=== PATIENT | female | born 1955 | race Caucasian/White ===

== ENCOUNTER 2021-05-12 22:44 | Inpatient (IN) | payer OTHER, SELFPAY ==
--- OUTSIDE RECORDS SUMMARY | 2021-05-12 22:47 | XMS REPORT | Continuity of Care Document ---
:1955 Author Organization [facility] t Address [address] [place] [address] Care Team Providers Name Role Phone Kristyn Lora Attending Clinician Unavailable Physician, Primary or Family Admitting Clinician Unavailabl e Payers Payer Name Policy Type Policy Number Effective Date Expiration Date S ource Problems This patient has no known problems. Allergies, Adverse Reactions, Alerts This patient has no known allergies or adverse reactions. Medications This patient has no known medications. Procedures This patient has no known procedures. Encounters Start End Encounter Admission Attending Care Care Encounter Source Date/Time Date/Time Type Type Clinicians Facility Department ID 2020-12-21 2020-12-21 Outpatient SRINATH Sarmiento [facility] RADI [id number] [facility] 08:23:00 08:23:00 Godwin alejandro [id number] [facility] Results This patient has no known results.
[2021-05-13] MEDS ORDERED: METHYLPREDNISOLONE 125 MG INJ ONE (00:21)
--- NOTE | 2021-05-13 00:30 | ER ---
Nurse's Notes [facility] Name: Autumn Davidson Age: 66 yrs Sex: Female : 1955 Arrival Date: 05/12/2021 Time: 22:45 Bed 18 Private MD: Diagnosis: Pneumonia due to SARS-associated coronavirus;Acute respiratory distress;Acute respiratory failure with hypoxia Presentation: 05/12 23:41 Chief complaint: Patient states: pt tested positive for COVID today, has been SOB, she as6 has been checking oxygen levels at home, home SpO2 has been in the 80s, pt PCP advised her to come to the ER. Coronavirus screen: Vaccine status: Patient reports receiving the 2nd dose of the covid vaccine. Client reports previous positive COVID test result. Ebola Screen: No symptoms or risks identified at this time. Initial Sepsis Screen: Does the patient meet any 2 criteria? RR > 20 per min. Does the patient have a suspected source of infection? Yes: Productive cough/pneumonia. Risk Assessment: Do you want to hurt yourself or someone else? Patient reports no desire to harm self or others. Onset of symptoms was May 04, 2021. 23:41 Method Of Arrival: Wheelchair as6 23:41 Acuity: NOAH 2 as6 Triage Assessment: 05/13 00:28 Respiratory: Onset: The symptoms/episode began/occurred gradually, the patient has as6 moderate shortness of breath. Historical: - Allergies: 05/12 23:45 Codeine; as6 - Home Meds: 23:45 diltiazem HCl 90 mg Oral tab 1 tab 4 times per day [Active]; gilmepiride 4 mg 1 tab 2 as6 times a day [Active]; lovastatin 20 mg Oral tab 1 tab once daily [Active]; metformin 500 mg Oral tab 1 tab 2 times per day [Active]; lisinopril-hydrochlorothiazide 20-25 mg oral tab 2 tabs once daily [Active]; fluoxetine 40 mg Oral cap 1 cap once daily [Active]; bupropion HCl 150 mg Oral Tb24 1 tab once daily [Active]; olanzapine 15 mg oral tab 1 tab once daily [Active]; Novolin N NPH U-100 Insulin 100 unit/mL Sub-Q susp [Active]; hydroxyzine HCl 50 mg Oral tab 1 tab three times a day [Active]; - PMHx: 23:45 Diabetes mellitus; Hypertensive disorder; Hypercholesterolemia; Depressive disorder; as6 Anxiety; Bronchitis; - PSHx: 23:45 None; as6 - Immunization history:: Client reports receiving the 2nd dose of the Covid vaccine, Pneumococcal vaccine is up to date, Flu vaccine is up to date. - Social history:: Smoking status: Patient denies any tobacco usage or history of. Screenin:55 Abuse screen: Denies threats or abuse. Nutritional screening: No deficits noted. as6 Tuberculosis screening: No symptoms or risk factors identified. Fall Risk None identified. Assessment: 05/13 00:24 General: Appears in no apparent distress. Behavior is calm, cooperative. Pain: Denies as6 pain. Neuro: Level of Consciousness is awake, alert, obeys commands, Oriented to person, place, time, situation. Cardiovascular: Capillary refill < 3 seconds Patient's skin is warm and dry. Respiratory: Reports shortness of breath cough that is Airway is patent Trachea midline Respiratory effort is even, labored, Respiratory pattern is regular, symmetrical, Breath sounds are diminished bilaterally. Derm: Skin is intact, is healthy with good turgor. 00:28 Cardiovascular: Rhythm is regular. as6 01:26 Reassessment: Patient states feeling better. General: pt states she is feeling better as6 with the oxygen . 06:34 General: pt resting with no difficulty breathing at this time, pt remains to be on hign as6 flow nasal cannula . Vital Signs: 05/12 23:41 BP 102 / 65; Pulse 74; Resp 22 S; Temp 96.8(TE); Pulse Ox 94% on Non-rebreather mask; as6 Weight 158.3 kg (R); Height 5 ft. 9 in. (175.26 cm) (R); Pain 0/10; 05/13 01:25 BP 103 / 49; Pulse 63; Resp 16 S; Pulse Ox 95% 30% ; as6 06:33 BP 109 / 94; Pulse 67; Resp 18 S; Pulse Ox 89% on NC; as6 05/12 23:41 Body Mass Index 51.54 (158.30 kg, 175.26 cm) as6 ED Course: 05/12 22:45 Patient arrived in ED. kc5 23:27 Blue Wetzel PA is PHCP. jr8 23:27 Kenyon Henley MD is Attending Physician. jr8 23:33 Jairo Longo, RN is Primary Nurse. as6 23:45 Triage completed. as6 23:55 Arm band placed on. as6 23:56 Placed in gown. Bed in low position. Call light in reach. Side rails up X2. Cardiac as6 monitor on. Pulse ox on. NIBP on. Warm blanket given. 05/13 00:18 Inserted saline lock: 18 gauge in right forearm, using aseptic technique. Blood as6 collected. 00:23 CXR XRAY In Process Unspecified. EDMS 00:29 Vinh Dubois MD is Hospitalizing Provider. jr8 03:39 No provider procedures requiring assistance completed. Patient admitted, IV remains in as6 place. Administered Medications: 00:23 Drug: SOLU-Medrol (methylPrednisoLONE) 125 mg Route: IVP; Site: right forearm; as6 00:51 Follow up: Response: No adverse reaction as6 02:40 Drug: NS 0.9% 1000 ml Route: IV; Rate: 1 bolus; Site: right forearm; as6 Outcome: 00:30 Decision to Hospitalize by Provider. jr8 03:39 Admitted to ER Hold. Please see [facility] for further documentation. as6 03:39 Condition: stable 21:29 Admitted to Tele room 431, Report called to DELFINA Leon lp1 21:46 Patient left the ED. lp1 Signatures: Dispatcher [employer] EDMS Myrna Sheridan RN RN lp1 Blue Wetzel PA PA jr8 Jairo Longo, DELFINA RN as6 Jennifer King kc5
--- NOTE | 2021-05-13 00:31 | EDPHYS ---
Physician Documentation [facility] Name: Autumn Davidson Age: 66 yrs Sex: Female : 1955 Arrival Date: 05/12/2021 Time: 22:45 Bed 18 Private MD: ED Physician Kenyon Henley HPI: 05/13 00:10 This 66 yrs old Female presents to ER via Wheelchair with complaints of COVID POS, jr8 Breathing Difficulty. 00:10 The patient has shortness of breath at rest. Onset: The symptoms/episode began/occurred jr8 gradually. Duration: The symptoms are continuous. The patient's shortness of breath is aggravated by light activity, walking. Associated signs and symptoms: The patient has no apparent associated signs or symptoms. Severity of symptoms: At their worst the symptoms were moderate in the emergency department the symptoms are unchanged. The patient has not experienced similar symptoms in the past. The patient has been recently seen by a physician:. This is a 66-year-old female patient that presented to the emergency room with complaints of increased shortness of breath. Patient started to have symptoms of Covid this past and was tested. On Friday was given official notification that she was positive. Stated that she had been doing okay until today. Historical: - Allergies: 05/12 23:45 Codeine; as6 - Home Meds: 23:45 diltiazem HCl 90 mg Oral tab 1 tab 4 times per day [Active]; gilmepiride 4 mg 1 tab 2 as6 times a day [Active]; lovastatin 20 mg Oral tab 1 tab once daily [Active]; metformin 500 mg Oral tab 1 tab 2 times per day [Active]; lisinopril-hydrochlorothiazide 20-25 mg oral tab 2 tabs once daily [Active]; fluoxetine 40 mg Oral cap 1 cap once daily [Active]; bupropion HCl 150 mg Oral Tb24 1 tab once daily [Active]; olanzapine 15 mg oral tab 1 tab once daily [Active]; Novolin N NPH U-100 Insulin 100 unit/mL Sub-Q susp [Active]; hydroxyzine HCl 50 mg Oral tab 1 tab three times a day [Active]; - PMHx: 23:45 Diabetes mellitus; Hypertensive disorder; Hypercholesterolemia; Depressive disorder; as6 Anxiety; Bronchitis; - PSHx: 23:45 None; as6 - Immunization history:: Client reports receiving the 2nd dose of the Covid vaccine, Pneumococcal vaccine is up to date, Flu vaccine is up to date. - Social history:: Smoking status: Patient denies any tobacco usage or history of. ROS: 05/13 00:10 Eyes: Negative for injury, pain, redness, and discharge, ENT: Negative for injury, jr8 pain, and discharge, Neck: Negative for injury, pain, and swelling, Cardiovascular: Negative for chest pain, palpitations, and edema, Abdomen/GI: Negative for abdominal pain, nausea, vomiting, diarrhea, and constipation, Back: Negative for injury and pain, MS/Extremity: Negative for injury and deformity, Skin: Negative for injury, rash, and discoloration, Neuro: Negative for headache, weakness, numbness, tingling, and seizure. Respiratory: Positive for cough, dyspnea on exertion, shortness of breath. Exam: 00:10 Constitutional: This is a well developed, well nourished patient who is awake, alert, jr8 and in no acute distress. Eyes: Pupils equal round and reactive to light, extra-ocular motions intact. Lids and lashes normal. Conjunctiva and sclera are non-icteric and not injected. Cornea within normal limits. Periorbital areas with no swelling, redness, or edema. ENT: Nares patent. No nasal discharge, no septal abnormalities noted. Tympanic membranes are normal and external auditory canals are clear. Oropharynx with no redness, swelling, or masses, exudates, or evidence of obstruction, uvula midline. Mucous membranes moist. Neck: Trachea midline, no thyromegaly or masses palpated, and no cervical lymphadenopathy. Supple, full range of motion without nuchal rigidity, or vertebral point tenderness. No Meningismus. Cardiovascular: Regular rate and rhythm with a normal S1 and S2. No gallops, murmurs, or rubs. Normal PMI, no JVD. No pulse deficits. Abdomen/GI: Soft, non-tender, with normal bowel sounds. No distension or tympany. No guarding or rebound. No evidence of tenderness throughout. Back: No spinal tenderness. No costovertebral tenderness. Full range of motion. Skin: Warm, dry with normal turgor. Normal color with no rashes, no lesions, and no evidence of cellulitis. MS/ Extremity: Pulses equal, no cyanosis. Neurovascular intact. Full, normal range of motion. Neuro: Awake and alert, GCS 15, oriented to person, place, time, and situation. Cranial nerves II-XII grossly intact. Motor strength 5/5 in all extremities. Sensory grossly intact. 00:10 Respiratory: mild respiratory distress is noted, Respirations: tachypnea, that is mild, Breath sounds: are clear throughout. Vital Signs: 05/12 23:41 BP 102 / 65; Pulse 74; Resp 22 S; Temp 96.8(TE); Pulse Ox 94% on Non-rebreather mask; as6 Weight 158.3 kg (R); Height 5 ft. 9 in. (175.26 cm) (R); Pain 0/10; 05/13 01:25 BP 103 / 49; Pulse 63; Resp 16 S; Pulse Ox 95% 30% ; as6 06:33 BP 109 / 94; Pulse 67; Resp 18 S; Pulse Ox 89% on NC; as6 05/12 23:41 Body Mass Index 51.54 (158.30 kg, 175.26 cm) as6 MDM: 05/12 23:33 Patient medically screened. jr8 05/13 00:10 Data reviewed: vital signs, nurses notes, lab test result(s), EKG, radiologic studies, jr8 plain films. Data interpreted: Pulse oximetry: on room air is 80 %. Interpretation: hypoxia. Plan: O2 by Mask applied. Counseling: I had a detailed discussion with the patient and/or guardian regarding: the historical points, exam findings, and any diagnostic results supporting the discharge/admit diagnosis, lab results, radiology results, the need for further work-up and treatment in the hospital. 05/12 23:34 Order name: BMP 8 05/12 23:34 Order name: Blood Culture Adult (2) 05/12 23:34 Order name: C-Reactive Protein 05/12 23:34 Order name: CBC with Diff 05/12 23:34 Order name: D-Dimer; Complete Time: 01:57 05/12 23:34 Order name: Ferritin; Complete Time: 02:30 05/12 23:34 Order name: LFT's; Complete Time: 02:30 05/12 23:34 Order name: Lactate; Complete Time: 02:30 jr8 05/12 23:34 Order name: PT-INR; Complete Time: 01:57 jr8 05/12 23:34 Order name: Procalcitonin; Complete Time: 02:37 jr8 05/12 23:34 Order name: Ptt, Activated; Complete Time: 01:57 jr8 05/12 23:34 Order name: Troponin (emerg Dept Use Only); Complete Time: 02:30 8 05/12 23:34 Order name: SARS-COV-2 RT PCR (Document "Date of Onset" if Symptomatic) jr8 05/12 23:34 Order name: Basic Metabolic Panel; Complete Time: 02:30 EDMS 05/12 23:34 Order name: CXR XRAY; Complete Time: 15:23 8 05/12 23:34 Order name: EKG; Complete Time: 23:35 8 05/12 23:34 Order name: Cardiac monitoring; Complete Time: 23:57 8 05/12 23:34 Order name: Droplet/Contact Precautions; Complete Time: 23:57 8 05/12 23:34 Order name: Blood Culture EDCO 05/12 23:34 Order name: C-Reactive Protein; Complete Time: 02:30 EDMS 05/12 23:34 Order name: CBC with Automated Diff; Complete Time: 01:59 EDMS 05/13 00:13 Order name: BIPAP: HiFlow jr8 05/13 02:46 Order name: CONS Physician Consult EDMS 05/13 07:20 Order name: Procalcitonin; Complete Time: 15:23 EDMS 05/13 12:18 Order name: Glucose, Ancillary Testing; Complete Time: 15:23 EDMS 05/13 12:42 Order name: Basic Metabolic Panel; Complete Time: 15:23 EDMS 05/13 17:01 Order name: Glucose, Ancillary Testing; Complete Time: 17:22 EDMS 05/13 20:50 Order name: Glucose, Ancillary Testing; Complete Time: 21:15 EDMS 05/12 23:34 Order name: EKG - Nurse/Tech; Complete Time: 00:51 8 05/12 23:34 Order name: IV Start; Complete Time: 00:18 8 05/12 23:34 Order name: Labs collected and sent; Complete Time: 00:18 [facility] 05/12 23:34 Order name: O2 Per Protocol; Complete Time: 23:57 jr8 05/12 23:34 Order name: O2 Sat Monitoring; Complete Time: 23:57 jr8 Administered Medications: 00:23 Drug: SOLU-Medrol (methylPrednisoLONE) 125 mg Route: IVP; Site: right forearm; as6 00:51 Follow up: Response: No adverse reaction as6 02:40 Drug: NS 0.9% 1000 ml Route: IV; Rate: 1 bolus; Site: right forearm; as6 Disposition: 22:30 Co-signature as Attending Physician, Kenyon Henley MD. 7 Disposition Summary: 05/13/21 00:30 Hospitalization Ordered Hospitalization Status: Inpatient Admission jr8 Provider: Vinh Dubois Condition: Stable jr8 Problem: new jr8 Symptoms: have improved jr8 Bed/Room Type: Standard 8 Location: Telemetry/MedSurg (Inpatient)(05/13/21 19:22) Room Assignment: [facility](05/13/21 19:22) Diagnosis - Pneumonia due to SARS-associated coronavirus jr8 - Acute respiratory distress jr8 - Acute respiratory failure with hypoxia jr8 Forms: - Medication Reconciliation Form jr8 - SBAR form jr8 Signatures: Dispatcher [employer] EDMS Modesta Burrell RN RN Blue Wetzel PA PA jr8 Kenyon Henley MD MD [facility] Jairo Longo RN RN as6 Corrections: (The following items were deleted from the chart) 01:39 00:30 Telemetry/MedSurg (Inpatient) jr8 mw 01:39 00:30 jr8 mw : 01:39 [facility] ER HOLD mw mw : 01:39 ERHOLD- mw mw
[2021-05-13 01:53] LABS: Absolute Lymphocytes (CBC) 0.8 K/uL (0.7-4.9); Hematocrit 50.8 % (36.0-45.0); Lymphocytes % 11.2 % (15.3-44.8); MPV 8.2 fL (7.6-11.3); RBC Red Blood Cell Count 6.42 M/uL (3.86-4.86)
[2021-05-13 01:54] LABS: Protime INR 1.12
[2021-05-13 02:23] LABS: ALT/SGPT 26 U/L (12-78); Albumin 2.5 g/dL (3.4-5.0); Alkaline Phosphatase 74 U/L (45-117); BUN Blood Urea Nitrogen 37 mg/dL (7-18); Bicarbonate 24 mmol/L (21-32); Bilirubin Direct 0.2 mg/dL (0-0.2); Bilirubin Total 0.6 mg/dL (0.2-1.0); Ferritin 209.7 ng/mL (8-388); Glucose Level 197 mg/dL (74-106); Protein, Total 7.5 g/dL (6.4-8.2); Sodium Level 128 mmol/L (136-145); Troponin (Emerg Dept Use Only) < 0.02 ng/mL (0.0-0.045)
[2021-05-13 02:24] LABS: AST/SGOT 28 U/L (15-37); Potassium 5.4 mmol/L (3.5-5.1)
[2021-05-13] MEDS ORDERED: NA CHLORIDE 0.9% 1,000 ML ONE ×3 (02:35→20:45)
[2021-05-13] MEDS ORDERED: ACETAMINOPHEN 500 MG TAB PO PRN (03:31)
[2021-05-13] MEDS ORDERED: MORPHINE 2 MG/ML SYR IV PRN (03:31)
[2021-05-13] MEDS ORDERED: NA CHLORIDE 0.9% 1,000 ML IV SCH (03:31)
[2021-05-13] MEDS ORDERED: ONDANSETRON 4 MG/2 ML VIAL IV PRN (03:31)
[2021-05-13] MEDS ORDERED: BENZONATATE 100 MG CAP PO PRN (03:31)
--- NOTE | 2021-05-13 03:54 | P.HP ---
Certification for Inpatient Patient admitted to: Inpatient With expected LOS: >2 Midnights Patient will require the following post-hospital care: None Practitioner: I am a practitioner with admitting privileges, knowledge of patient current condition, hospital course, and medical plan of care. Services: Services provided to patient in accordance with Admission requirements found in Title 42 Section 412.3 of the Code of Federal Regulations <Major Coleman - Last Filed: 05/13/21 03:49> Patient History Date of Service: 05/13/21 Primary Care Provider: Rosalina Reason for admission: covid pneumonia History of Present Illness: Ms. Davidson is a 66 yo F with DM, HTN, HLD, chronic bronchitis who presents with hypoxia and fever. Her symptoms began last Friday, and she tested positive for COVID on Friday. She reports cough, SOB, wheezing, and pleuritic pain. Denies nausea, vomiting, and diarrhea. She has not had an appetite, but has been eating okay. Na 128 K 5.4 Cl 97 BUN 37 Cr 1.96 GFR 26 Glu 197 CRP 68 procal 0.17. Currently on high flow nasal cannula, sats 96%. - Past Medical/Surgical History Has patient received pneumonia vaccine in the past: Yes -: HTN -: DM -: HLD -: chronic bronchitis Past Surgical History: Patient denies surgical history - Family History Mother -: Heart disease Father -: Stroke - Social History Smoking Status: Never smoker Alcohol use: No CD- Drugs: No Caffeine use: Yes Place of Residence: Home <Major Coleman - Last Filed: 05/13/21 03:49> Date of Service: 05/13/21 <Vinh Dubois - Last Filed: 05/13/21 20:16> Allergies No Known Allergies Allergy (Unverified 05/13/21 03:31) Review of Systems 10-point ROS is otherwise unremarkable General: Fever, Weakness, Malaise Eyes: Unremarkable ENT: Unremarkable Respiratory: Cough, Shortness of Breath, SOB with Excertion, Wheezing, As per HPI Cardiovascular: Unremarkable Gastrointestinal: Unremarkable Genitourinary: Unremarkable Musculoskeletal: Unremarkable Integumentary: Unremarkable Neurological: Unremarkable Lymphatics: Unremarkable <Major Coleman - Last Filed: 05/13/21 03:49> Physical Examination - Physical Exam General: Alert, In no apparent distress HEENT: Atraumatic, PERRLA, Mucous membr. moist/pink, EOMI, Sclerae nonicteric Neck: Supple, 2+ carotid pulse no bruit, No LAD, Without JVD or thyroid abnormality Respiratory: Diminished, Rhonchi/gurgles Cardiovascular: Regular rate/rhythm, Normal S1 S2 Gastrointestinal: Normal bowel sounds, No tenderness Musculoskeletal: No tenderness Integumentary: No rashes Neurological: Normal speech, Normal strength at 5/5 x4 extr, Normal tone, Normal affect Lymphatics: No axilla or inguinal lymphadenopathy - Studies Laboratory Data (last 24 hrs) 05/13/21 01:23: PT 12.9 H, INR 1.12, APTT 29.4 05/13/21 01:23: WBC 7.30, Hgb 16.2 H, Hct 50.8 H, Plt Count 173 05/13/21 01:23: Sodium 128 L, Potassium 5.4 H, BUN 37 H, Creatinine 1.96 H, Glucose 197 H, Total Bilirubin 0.6, AST 28, ALT 26, Alkaline Phosphatase 74 <Major Coleman S - Last Filed: 05/13/21 03:49> - Studies Laboratory Data (last 24 hrs) 05/13/21 01:23: PT 12.9 H, INR 1.12, APTT 29.4 05/13/21 01:23: WBC 7.30, Hgb 16.2 H, Hct 50.8 H, Plt Count 173 05/13/21 01:23: Sodium 128 L, Potassium 5.4 H, BUN 37 H, Creatinine 1.96 H, Glucose 197 H, Total Bilirubin 0.6, AST 28, ALT 26, Alkaline Phosphatase 74 <Vinh Dubois - Last Filed: 05/13/21 20:16> Assessment and Plan - Problems (Diagnosis) (1) Pneumonia due to COVID-19 virus Current Visit: Yes Status: Acute (2) HTN (hypertension) Current Visit: Yes Status: Chronic Qualifiers: Hypertension type: primary hypertension Qualified Code(s): I10 - Essential (primary) hypertension (3) T2DM (type 2 diabetes mellitus) Current Visit: Yes Status: Chronic Qualifiers: Diabetes mellitus usp insulin use: unspecified usp insulin use status Diabetes mellitus complication status: without complication Qualified Code(s): E11.9 - Type 2 diabetes mellitus without complications (4) HLD (hyperlipidemia) Current Visit: Yes Status: Chronic Qualifiers: Hyperlipidemia type: unspecified Qualified Code(s): E78.5 - Hyperlipidemia, unspecified (5) LEOLA (acute kidney injury) Current Visit: Yes Status: Acute - Plan pulmonology consulted, RT consulted continue oxygen, IV steroids, covid supplements continue IV fluid hydration sliding scale insulin and accuchecks, A1c daily CRP, ferritin, procal antitussives PRN reconcile and continue home medications DVT ppx Discharge Plan: Home Plan to discharge in: Greater than 2 days - Advance Directives Does patient have a Living Will: No Does patient have a Durable POA for Healthcare: No - Code Status/Comfort Care Code Status Assessed: Yes (DNR/DNI) Critical Care: No Time Spent Managing Pts Care (In Minutes): 70 <Major Coleman - Last Filed: 05/13/21 03:49> Date of Service: 05/13/21 Subjective: Agree with the HPI as mentioned above Physical Examination: Vitals: Afebrile vital signs are stable Physical exam: Cardiovascular: Within normal limits. Lungs: Within normal limits Abdomen: Within normal limits Neuro: Awake, alert, oriented to person place and time Assessment: 1. COVID-19 pneumonia 2. LEOLA 3. Hypertension 4. Diabetes Plan: 1. Continue with current plan of care as mentioned above <Vinh Dubois - Last Filed: 05/13/21 20:16>
[2021-05-13] MEDS: INSULIN -REGULAR HUMAN 50 UNIT/0.5 ML ML SQ SCH ×4 (07:30→20:57)
--- NOTE | 2021-05-13 07:39 | RAD REPORT ---
EXAM DESCRIPTION: RAD - Chest Single View - 05/13/2021 12:23 am CLINICAL HISTORY: DYSPNEA COMPARISON: Chest Pa And Lat (2 Views) dated 08/26/2017; Chest Pa And Lat (2 Views) dated 02/06/2017 FINDINGS: Lines: None. Lungs: Limited due to poor penetration. Question some subtle airspace disease in the left mid lung an d there are basilar opacities, left greater than right. Pleural: No significant pleural effusions or pneumothorax. Cardiac: Cardiomegaly. Bones: No acute fractures. Other: IMPRESSION: Poor penetration limits evaluation. Difficult to exclude an airspace process in the left mid lung and left lung base. A PA and lateral could better evaluate.
[2021-05-13] MEDS: THIAMINE HCL 100 MG TABLET PO SCH (09:00)
[2021-05-13] MEDS: FAMOTIDINE 20 MG TAB PO SCH (09:00)
[2021-05-13] MEDS: ZINC SULFATE 220 MG CAP PO SCH (09:00)
[2021-05-13] MEDS: VITAMIN D 1000 UNIT TAB PO SCH (09:00)
[2021-05-13] MEDS: ASPIRIN EC 81 MG TAB PO SCH (09:00)
[2021-05-13] MEDS: ASCORBIC ACID 500 MG TABLET PO SCH ×4 (09:00→20:58)
[2021-05-13] MEDS ORDERED: METHYLPREDNISOLONE 125 MG INJ IV SCH (09:00)
[2021-05-13] MEDS ORDERED: FAMOTIDINE 20 MG TAB PO SCH (09:00)
[2021-05-13] MEDS: HEPARIN 5000 UNIT/ML 1 ML VIAL SQ SCH ×2 (09:00→17:00)
[2021-05-13] MEDS ORDERED: HEPARIN 5000 UNIT/ML 1 ML VIAL ONE ×2 (11:09→17:49)
[2021-05-13] MEDS ORDERED: ASPIRIN 81 MG CHEWABLE TABLET ONE (11:09)
[2021-05-13] MEDS ORDERED: ZINC SULFATE 220 MG CAP ONE (11:09)
[2021-05-13] MEDS ORDERED: ASCORBIC ACID 500 MG TABLET ONE ×3 (11:09→20:45)
[2021-05-13] MEDS ORDERED: THIAMINE HCL 100 MG TABLET ONE (11:09)
[2021-05-13] MEDS ORDERED: METHYLPREDNISOLONE 40 MG INJ ONE (11:10)
[2021-05-13] MEDS ORDERED: FAMOTIDINE 20 MG TAB ONE (11:10)
[2021-05-13 12:42] LABS: Potassium 4.8 mmol/L (3.5-5.1)
[2021-05-13] MEDS ORDERED: INSULIN -REGULAR HUMAN 50 UNIT/0.5 ML ML ONE ×2 (17:11→20:44)
[2021-05-13] MEDS: NA CHLORIDE 0.9% 1,000 ML IV SCH (21:00)
[2021-05-13 22:22] VITALS: BMI 57.0
[2021-05-14] MEDS: HEPARIN 5000 UNIT/ML 1 ML VIAL SQ SCH ×2 (01:23→08:47)
[2021-05-14] MEDS: METHYLPREDNISOLONE 40 MG INJ IV SCH ×3 (01:23→16:25)
[2021-05-14 04:26] LABS: Absolute Lymphocytes (CBC) 0.7 K/uL (0.7-4.9); Hematocrit 50.2 % (36.0-45.0); MPV 7.9 fL (7.6-11.3); RBC Red Blood Cell Count 6.26 M/uL (3.86-4.86)
[2021-05-14 04:37] LABS: Albumin 2.5 g/dL (3.4-5.0); Bilirubin Total 0.4 mg/dL (0.2-1.0); C-Reactive Protein 46.3 mg/L (<3.00); Ferritin 319.7 ng/mL (8-388); Magnesium 2.5 mg/dL (1.8-2.4); Phosphorus 2.6 mg/dL (2.5-4.9); Potassium 4.6 mmol/L (3.5-5.1); Protein, Total 7.3 g/dL (6.4-8.2); Thyroid Stimulating Hormone 0.478 uIU/mL (0.360-3.740)
[2021-05-14] MEDS: ASCORBIC ACID 500 MG TABLET PO SCH ×4 (08:42→21:11)
[2021-05-14] MEDS: FAMOTIDINE 20 MG TAB PO SCH (08:42)
[2021-05-14] MEDS: VITAMIN D 1000 UNIT TAB PO SCH (08:43)
[2021-05-14] MEDS: THIAMINE HCL 100 MG TABLET PO SCH (08:43)
[2021-05-14] MEDS: ZINC SULFATE 220 MG CAP PO SCH (08:46)
[2021-05-14] MEDS: INSULIN -REGULAR HUMAN 50 UNIT/0.5 ML ML SQ SCH ×4 (08:48→21:15)
[2021-05-14] MEDS: ASPIRIN EC 81 MG TAB PO SCH (08:48)
--- NOTE | 2021-05-14 11:17 | P.CNS ---
Date of Consult: 05/14/21 Reason for Consult: Respiratory failure from coronavirus Primary Care Provider: Rosalina Chief Complaint: covid pneumonia History of Present Illness: Patient is 66 years of age metabolic syndrome admitted with hypoxemia and fever tested positive for Covid. With coronavirus pneumonia patient is confused disoriented Allergies No Known Allergies Allergy (Unverified 05/13/21 03:31) Home Medications: Bupropion HCl [Wellbutrin Xl] 150 mg PO DAILY 05/13/21 Fluoxetine HCl [Prozac] 40 mg PO DAILY 05/13/21 Glimepiride 4 mg PO BID 05/13/21 Hydroxyzine HCl [Atarax] 50 mg PO TIDP PRN 05/13/21 Ibuprofen 200 mg PO DAILY 05/13/21 Insulin NPH Human Isophane [Novolin N] 20 unit SQ BID 05/13/21 Lisinopril/Hydrochlorothiazide [Lisinopril-Hctz 20-25 mg Tab] 2 tab PO DAILY 05/13/21 Lovastatin 20 mg PO BEDTIME 05/13/21 Metformin HCl 500 mg PO BID 05/13/21 Olanzapine [Zyprexa Zydis] 15 mg PO BEDTIME 05/13/21 dilTIAZem HCL [Diltiazem HCl] 90 mg PO QID 05/13/21 - Past Medical/Surgical History Diabetic: Yes -: HTN -: DM -: HLD -: chronic bronchitis - Family History Mother Medical History: Heart disease, Diabetes Father Medical History: Stroke Brother Medical History: Cancer Notes: rectal, intestinal, liver- Sister Medical History: Cancer Notes: uterine - Social History Alcohol use: No CD- Drugs: No Caffeine use: Yes Place of Residence: Home Review of Systems is unable to be obtained Physical Examination Temp Pulse Resp BP Pulse Ox 96.8 F 70 18 140/68 93 05/14/21 07:52 05/14/21 07:52 05/14/21 07:52 05/14/21 07:52 05/14/21 07:52 General: Alert, Cooperative Respiratory: Crackles/rales Cardiovascular: No edema, Normal S1 S2 - Problems (1) Pneumonia due to COVID-19 virus Current Visit: Yes Status: Acute Plan: H 66 admitted with coronavirus pneumonia chest x-ray shows cardiomegaly mild interstitial changes patient requiring 60% FiO2 labs reviewed continue to monitor continue with steroids patient does not qualify for Barcitinib changed to p.o. low-dose Xarelto DC subcutaneous heparin
--- NOTE | 2021-05-14 15:25 | P.PN ---
Subjective Date of Service: 05/14/21 Primary Care Provider: Dr. Romano Chief Complaint: covid pneumonia Subjective: Other (Currently on high flow at 60%.) Physical Examination - Vital Signs Temperature: 97.7 F Blood Pressure: 132/60 Pulse: 72 Respirations: 20 Pulse Ox (%): 92 Assessment & Plan Physician Review Additional Text: COVID: Positive Initial CXR: COMPARISON: Chest Pa And Lat (2 Views) dated 08/26/2017; Chest Pa And Lat (2 Views) dated 02/06/2017 FINDINGS: Lines: None. Lungs: Limited due to poor penetration. Question some subtle airspace disease in the left mid lung and there are basilar opacities, left greater than right. Pleural: No significant pleural effusions or pneumothorax. Cardiac: Cardiomegaly. Bones: No acute fractures. IMPRESSION: Poor penetration limits evaluation. Difficult to exclude an airspace process in the left mid lung and left lung base. A PA and lateral could better evaluate. Physical Exam: GENERAL: The patient is a well-developed, well-nourished, in no apparent distress. Alert and oriented x3. VITAL SIGNS: Reviewed HEENT: Neck supple LUNGS: Clear to auscultation. No crackles or wheezes are heard. Currently on high flow at 60 % HEART: Regular rate and rhythm, no appreciable gallops, rubs, murmurs or extra heart sounds ABDOMEN: Soft, nontender, and nondistended. Positive bowel sounds. No hepatosplenomegaly was noted. EXTREMITIES: Without any cyanosis, clubbing, rash, lesions or peripheral edema. NEUROLOGIC: The patient is oriented to person, place and time. Strength and sensation are grossly intact. Face is symmetric. SKIN: Normal color, turgor and temperature. No ulcerations or rashes noted. Impression: Dyspnea secondary to acute respiratory failure with hypoxia related to COVID-19 Pneumonia Hypertension Bipolar disorder Diabetes mellitus type 2 insulin-dependent Hyperlipidemia Plan: Dyspnea secondary to acute respiratory failure with hypoxia related to COVID-19 Pneumonia: Continue with IV Solu-Medrol at 40 mg 3 times daily. Spoke with pulmonology. Patient not a candidate for baricitinib. Continue to monitor lab closely. Wean off high flow. Continue with pulmonology recommendations. Will monitor lab closely. Recheck chest x-ray tomorrow. Change DVT prophylaxis to Xarelto. Hypertension: BP stable off medication. Previously on diltiazem and lisinopril to chlorothiazide. Will monitor off medication. If blood pressure elevated then will restart medication. Bipolar disorder: Restart Abilify 15 mg daily, Wellbutrin XL 150 mg daily and Prozac 40 mg daily Diabetes mellitus type 2 insulin-dependent: Hemoglobin A1c 8.3. Restart basal insulin. Will monitor Accu-Cheks. Hyperlipidemia: Restart lovastatin 20 mg daily Code Status: Full Code DVT prophylaxis: Michael Advanced Care Planning-30 minutes: Home at discharge Time Spent Managing Pts Care (In Minutes): 55
[2021-05-14] MEDS: NA CHLORIDE 0.9% 1,000 ML IV SCH (16:26)
[2021-05-14 16:46] LABS: Urine Appearance CLEAR (Clear); Urine Bilirubin NEGATIVE (Negative); Urine Blood NEGATIVE (Negative); Urine Color YELLOW (Yellow); Urine Glucose 3+ (Negative); Urine Protein NEGATIVE (Negative); Urine Urobilinogen 0.2 mg/dL (0.2-1.0)
[2021-05-14 16:54] LABS: Urine Microscopic Reflex NO UMIC
[2021-05-14] MEDS ORDERED: OLANZAPINE 15 MG PO SCH (21:00)
[2021-05-14] MEDS ORDERED: HOME MED 1 EA UNK (Lovastatin [Lovastatin] 40 MG Tablet) PO SCH (21:00)
[2021-05-14] MEDS: OLANZapine 10 MG TABLET PO SCH (21:12)
[2021-05-14] MEDS: INSULIN GLARGINE 100 UNIT/ML SQ SCH (21:14)
[2021-05-14] MEDS: ATORVASTATIN 10 MG TAB PO SCH (21:14)
[2021-05-14] MEDS: MUCINEX DM 12HR.SR TAB PO PRN (23:02)
[2021-05-15] MEDS: METHYLPREDNISOLONE 40 MG INJ IV SCH ×3 (00:37→16:24)
[2021-05-15 04:00] LABS: Absolute Lymphocytes (CBC) 0.5 K/uL (0.7-4.9); Hematocrit 49.5 % (36.0-45.0); Lymphocytes % 5.7 % (15.3-44.8); MPV 7.4 fL (7.6-11.3); RBC Red Blood Cell Count 6.19 M/uL (3.86-4.86)
[2021-05-15 04:23] LABS: Albumin 2.4 g/dL (3.4-5.0); Bilirubin Total 0.4 mg/dL (0.2-1.0); C-Reactive Protein 21.2 mg/L (<3.00); Ferritin 317.3 ng/mL (8-388); Potassium 4.7 mmol/L (3.5-5.1)
[2021-05-15 04:49] LABS: Blood Morphology Comment NOT SEEN (NOT SEEN); Platelet Estimate ADEQ
--- NOTE | 2021-05-15 06:10 | P.PN ---
Subjective Date of Service: 05/15/21 Primary Care Provider: Dr. Romano Chief Complaint: covid pneumonia Subjective: Improving Physical Examination - Vital Signs Temperature: 96.8 F Blood Pressure: 134/63 Pulse: 68 Respirations: 19 Pulse Ox (%): 93 Assessment & Plan Discharge Plan: Home Plan to discharge in: Greater than 2 days Physician Review Additional Text: COVID: Positive Initial CXR: COMPARISON: Chest Pa And Lat (2 Views) dated 08/26/2017; Chest Pa And Lat (2 Views) dated 02/06/2017 FINDINGS: Lines: None. Lungs: Limited due to poor penetration. Question some subtle airspace disease in the left mid lung and there are basilar opacities, left greater than right. Pleural: No significant pleural effusions or pneumothorax. Cardiac: Cardiomegaly. Bones: No acute fractures. IMPRESSION: Poor penetration limits evaluation. Difficult to exclude an airspace process in the left mid lung and left lung base. A PA and lateral could better evaluate. ECHO: MEASUREMENTS (cm) DIASTOLIC (NORMALS) SYSTOLIC (NORMALS) IVSd 1.2 (0.6-1.2) LA Diam 3.5 (1.9-4.0) LVEF 50% LVIDd 6.1 (3.5-5.7) LVIDs 4.5 (2.0-3.5) %FS 26% LVPWd 1.2 (0.6-1.2) Ao Diam 2.7 (2.0-3.7) 2 DIMENSIONAL ASSESSMENT: RIGHT ATRIUM: NORMAL LEFT ATRIUM: NORMAL RIGHT VENTRICLE: NORMAL LEFT VENTRICLE: NORMAL TRICUSPID VALVE: NORMAL MITRAL VALVE: NORMAL PULMONIC VALVE: NORMAL AORTIC VALVE: NORMAL PERICARDIAL EFFUSION: NONE AORTIC ROOT: NORMAL LEFT VENTRICULAR WALL MOTION: NORMAL DOPPLER/COLOR FLOW: NORMAL COMMENTS: NORMAL 2-DIMENSIONAL ECHOCARDIOGRAM WITH DOPPLER. NO WALL MOTION ABNORMALITY. NO EFFUSION. Follow up CXR 05/15/2021: COMPARISON: May 12, 2021 FINDINGS: The lungs appear grossly clear. The heart is mildly enlarged Physical Exam: GENERAL: The patient is a well-developed, well-nourished, in no apparent distress. Alert and oriented x3. VITAL SIGNS: Reviewed HEENT: Neck supple LUNGS: Clear to auscultation. No crackles or wheezes are heard. Currently on high flow at 60 % HEART: Regular rate and rhythm, no appreciable gallops, rubs, murmurs or extra heart sounds ABDOMEN: Soft, nontender, and nondistended. Positive bowel sounds. No hepatosplenomegaly was noted. EXTREMITIES: Without any cyanosis, clubbing, rash, lesions or peripheral edema. NEUROLOGIC: The patient is oriented to person, place and time. Strength and sensation are grossly intact. Face is symmetric. SKIN: Normal color, turgor and temperature. No ulcerations or rashes noted. Impression: Dyspnea secondary to acute respiratory failure with hypoxia related to COVID-19 Pneumonia Hypertension Bipolar disorder Diabetes mellitus type 2 insulin-dependent Hyperlipidemia Plan: Dyspnea secondary to acute respiratory failure with hypoxia related to COVID-19 Pneumonia: Overall stable and slight improvement. continue with IV Solu-Medrol at 40 mg 3 times daily. Spoke with pulmonology. Patient not a candidate for baricitinib. Continue to monitor lab closely. Wean off high flow. Continue with pulmonology recommendations. Will monitor lab closely. Continue Xarelto for DVT prophylaxis. Hypertension: BP stable off medication. Previously on diltiazem and lisinopril hydro-chlorothiazide. Will monitor off medication. If blood pressure elevated then will restart medication. Bipolar disorder: Restart Abilify 15 mg daily, Wellbutrin XL 150 mg daily and Prozac 40 mg daily Diabetes mellitus type 2 insulin-dependent: Hemoglobin A1c 8.3. Continue basal insulin. Will monitor Accu-Cheks. Hyperlipidemia: Continue lovastatin 20 mg daily Code Status: Full Code DVT prophylaxis: Xarelto Advanced Care Planning-30 minutes: Home at discharge Time Spent Managing Pts Care (In Minutes): 55
--- NOTE | 2021-05-15 08:01 | RAD REPORT ---
EXAM DESCRIPTION: Concepcion Single View05/15/2021 5:19 am CLINICAL HISTORY: Chest pain COMPARISON: May 12, 2021 FINDINGS: The lungs appear grossly clear. The heart is mildly enlarged
[2021-05-15] MEDS ORDERED: HOME MED 1 EA UNK (Fluoxetine Hcl [Prozac] 40 MG Capsule) PO SCH (09:00)
[2021-05-15] MEDS: INSULIN -REGULAR HUMAN 50 UNIT/0.5 ML ML SQ SCH ×4 (09:05→20:44)
[2021-05-15] MEDS: THIAMINE HCL 100 MG TABLET PO SCH (09:06)
[2021-05-15] MEDS: VITAMIN D 1000 UNIT TAB PO SCH (09:06)
[2021-05-15] MEDS: INSULIN GLARGINE 100 UNIT/ML SQ SCH ×2 (09:06→20:44)
[2021-05-15] MEDS: BUPROPION HCL XL 150 MG TAB PO SCH (09:06)
[2021-05-15] MEDS: RIVAROXABAN 10 MG TABLET PO SCH (09:07)
[2021-05-15] MEDS: FLUOXETINE 20 MG CAP PO SCH (09:07)
[2021-05-15] MEDS: ASCORBIC ACID 500 MG TABLET PO SCH ×4 (09:07→20:43)
[2021-05-15] MEDS: ZINC SULFATE 220 MG CAP PO SCH (09:07)
[2021-05-15] MEDS: FAMOTIDINE 20 MG TAB PO SCH (09:07)
[2021-05-15] MEDS: ASPIRIN EC 81 MG TAB PO SCH (09:07)
--- NOTE | 2021-05-15 11:18 | ECHO ---
HEIGHT: 5 ft 5 in WEIGHT: 342 lb 11.2 oz DATE OF STUDY: 05/15/[address]: Vinh Dubois MD 2-DIMENSIONAL: YES M.MODE: YES DOPPLER: YES COLOR FLOW: YES TDS: PORTABLE: DEFINITY: BUBBLE STUDY: DIAGNOSIS: CONGSETIVE HEART FAILURE CARDIAC HISTORY: CATHERIZATION: SURGERY: PROSTHETIC VALVE: PACEMAKER: MEASUREMENTS (cm) DIASTOLIC (NORMALS) SYSTOLIC (NORMALS) IVSd 1.2 (0.6-1.2) LA Diam 3.5 (1.9-4.0) LVEF 50% LVIDd 6.1 (3.5-5.7) LVIDs 4.5 (2.0-3.5) %FS 26% LVPWd 1.2 (0.6-1.2) Ao Diam 2.7 (2.0-3.7) 2 DIMENSIONAL ASSESSMENT: RIGHT ATRIUM: NORMAL LEFT ATRIUM: NORMAL RIGHT VENTRICLE: NORMAL LEFT VENTRICLE: NORMAL TRICUSPID VALVE: NORMAL MITRAL VALVE: NORMAL PULMONIC VALVE: NORMAL AORTIC VALVE: NORMAL PERICARDIAL EFFUSION: NONE AORTIC ROOT: NORMAL LEFT VENTRICULAR WALL MOTION: NORMAL DOPPLER/COLOR FLOW: NORMAL COMMENTS: NORMAL 2-DIMENSIONAL ECHOCARDIOGRAM WITH DOPPLER. NO WALL MOTION ABNORMALITY. NO EFFUSION. TECHNOLOGIST: OSBALDO BAILEY
--- NOTE | 2021-05-15 16:42 | P.PN ---
Subjective Date of Service: 05/15/21 Primary Care Provider: Dr. Romano Chief Complaint: covid pneumonia Subjective: Improving (Doign better SOB improved) Review of Systems Respiratory: Shortness of Breath Physical Examination - Vital Signs Temperature: 96.8 F Blood Pressure: 134/63 Pulse: 68 Respirations: 19 Pulse Ox (%): 93 - Physical Exam General: Alert, In no apparent distress, Oriented x3 Respiratory: Clear to auscultation bilaterally, Diminished Assessment & Plan - Problems (Diagnosis) (1) Pneumonia due to COVID-19 virus Current Visit: Yes Status: Acute Plan: Doign better O2 requirement declined Pt vaccinated with Pfizer recently in February/ CW to titrate O2 down Poss DC in 1-2 days/ Normal ECHO
[2021-05-15] MEDS: OLANZapine 10 MG TABLET PO SCH (20:42)
[2021-05-15] MEDS: MELATONIN 5 MG TABLET PO PRN (20:43)
[2021-05-15] MEDS: BENZONATATE 100 MG CAP PO PRN (20:43)
[2021-05-15] MEDS: ATORVASTATIN 10 MG TAB PO SCH (20:43)
[2021-05-16] MEDS: METHYLPREDNISOLONE 40 MG INJ IV SCH ×3 (01:26→16:38)
[2021-05-16] MEDS: MUCINEX DM 12HR.SR TAB PO PRN (02:17)
[2021-05-16 04:10] LABS: Absolute Lymphocytes (CBC) 0.5 K/uL (0.7-4.9); Hematocrit 48.4 % (36.0-45.0); Lymphocytes % 6.8 % (15.3-44.8); MPV 7.4 fL (7.6-11.3); RBC Red Blood Cell Count 6.06 M/uL (3.86-4.86)
[2021-05-16 04:31] LABS: Albumin 2.4 g/dL (3.4-5.0); Bilirubin Total 0.4 mg/dL (0.2-1.0); Ferritin 279.7 ng/mL (8-388); Potassium 4.7 mmol/L (3.5-5.1); Protein, Total 6.8 g/dL (6.4-8.2)
--- NOTE | 2021-05-16 07:40 | RAD REPORT ---
EXAM DESCRIPTION: RAD - Chest Single View - 05/16/2021 4:35 am CLINICAL HISTORY: followup COVID COMPARISON: Chest Single View dated 05/15/2021; Chest Single View dated 05/12/2021; Chest Pa And Lat (2 Views) dated 08/26/2017; Chest Pa And Lat (2 Views) dated 02/06/2017 FINDINGS: Lines: None. Lungs: No definite evidence of edema or pneumonia. Pleural: No significant pleural effusions or pneumothorax. Cardiac: Cardiomegaly. Bones: No acute fractures. Other: IMPRESSION: Similar aeration of the lungs without definite focal acute process identified .
[2021-05-16] MEDS: BUPROPION HCL XL 150 MG TAB PO SCH (08:00)
[2021-05-16] MEDS: VITAMIN D 1000 UNIT TAB PO SCH (08:00)
[2021-05-16] MEDS: RIVAROXABAN 10 MG TABLET PO SCH (08:01)
[2021-05-16] MEDS: FAMOTIDINE 20 MG TAB PO SCH (08:01)
[2021-05-16] MEDS: THIAMINE HCL 100 MG TABLET PO SCH (08:01)
[2021-05-16] MEDS: ASCORBIC ACID 500 MG TABLET PO SCH ×4 (08:01→19:35)
[2021-05-16] MEDS: FLUOXETINE 20 MG CAP PO SCH (08:01)
[2021-05-16] MEDS: ASPIRIN EC 81 MG TAB PO SCH (08:01)
[2021-05-16] MEDS: ZINC SULFATE 220 MG CAP PO SCH (08:01)
[2021-05-16] MEDS: INSULIN GLARGINE 100 UNIT/ML SQ SCH ×2 (09:00→19:36)
--- NOTE | 2021-05-16 09:27 | P.PN ---
Subjective Date of Service: 05/16/21 Primary Care Provider: Dr. Romano Chief Complaint: covid pneumonia Subjective: Improving (Patient reports improvement. Now down to high flow 50%) Physical Examination - Vital Signs Temperature: 97.6 F Blood Pressure: 137/61 Pulse: 74 Respirations: 19 Pulse Ox (%): 93 Assessment & Plan Discharge Plan: Home Plan to discharge in: Greater than 2 days Physician Review Additional Text: COVID: Positive Initial CXR: COMPARISON: Chest Pa And Lat (2 Views) dated 08/26/2017; Chest Pa And Lat (2 Views) dated 02/06/2017 FINDINGS: Lines: None. Lungs: Limited due to poor penetration. Question some subtle airspace disease in the left mid lung and there are basilar opacities, left greater than right. Pleural: No significant pleural effusions or pneumothorax. Cardiac: Cardiomegaly. Bones: No acute fractures. IMPRESSION: Poor penetration limits evaluation. Difficult to exclude an airspace process in the left mid lung and left lung base. A PA and lateral could better evaluate. ECHO: MEASUREMENTS (cm) DIASTOLIC (NORMALS) SYSTOLIC (NORMALS) IVSd 1.2 (0.6-1.2) LA Diam 3.5 (1.9-4.0) LVEF 50% LVIDd 6.1 (3.5-5.7) LVIDs 4.5 (2.0-3.5) %FS 26% LVPWd 1.2 (0.6-1.2) Ao Diam 2.7 (2.0-3.7) 2 DIMENSIONAL ASSESSMENT: RIGHT ATRIUM: NORMAL LEFT ATRIUM: NORMAL RIGHT VENTRICLE: NORMAL LEFT VENTRICLE: NORMAL TRICUSPID VALVE: NORMAL MITRAL VALVE: NORMAL PULMONIC VALVE: NORMAL AORTIC VALVE: NORMAL PERICARDIAL EFFUSION: NONE AORTIC ROOT: NORMAL LEFT VENTRICULAR WALL MOTION: NORMAL DOPPLER/COLOR FLOW: NORMAL COMMENTS: NORMAL 2-DIMENSIONAL ECHOCARDIOGRAM WITH DOPPLER. NO WALL MOTION ABNORMALITY. NO EFFUSION. Follow up CXR 05/16/2021: COMPARISON: Chest Single View dated 05/15/2021; Chest Single View dated 05/12/2021; Chest Pa And Lat (2 Views) dated 08/26/2017; Chest Pa And Lat (2 Views) dated 02/06/2017 FINDINGS: Lines: None. Lungs: No definite evidence of edema or pneumonia. Pleural: No significant pleural effusions or pneumothorax. Cardiac: Cardiomegaly. Bones: No acute fracture IMPRESSION: Similar aeration of the lungs without definite focal acute process identified . Physical Exam: GENERAL: The patient is a well-developed, well-nourished, in no apparent distress. Alert and oriented x3. VITAL SIGNS: Reviewed HEENT: Neck supple LUNGS: Clear to auscultation. No crackles or wheezes are heard. Patient now down to 50% high flow. HEART: Regular rate and rhythm, no appreciable gallops, rubs, murmurs or extra heart sounds ABDOMEN: Soft, nontender, and nondistended. Positive bowel sounds. No hepatosplenomegaly was noted. EXTREMITIES: Without any cyanosis, clubbing, rash, lesions or peripheral edema. NEUROLOGIC: The patient is oriented to person, place and time. Strength and sensation are grossly intact. Face is symmetric. SKIN: Normal color, turgor and temperature. No ulcerations or rashes noted. Impression: Dyspnea secondary to acute respiratory failure with hypoxia related to COVID-19 Pneumonia Hypertension Bipolar disorder Diabetes mellitus type 2 insulin-dependent Hyperlipidemia Plan: Dyspnea secondary to acute respiratory failure with hypoxia related to COVID-19 Pneumonia: Patient continues to slowly improve. Patient now down to 50% high flow. Continue to wean off oxygen to maintain sats above 93%. Hopefully patient can be transitioned to nasal cannula today. Continue IV Solu-Medrol. Continue current plan of care. Continue to monitor CRP and ferritin. Continue to discuss with pulmonology. Encourage ambulation. Encourage lying on her side or prone position. Anticipate continued improvement. Likely home in the next 2 to 3 days if patient requiring less than 4 L per nasal cannula and ambulating well. Hypertension: BP stable off medication. Previously on diltiazem and lisinopril hydro-chlorothiazide. Will monitor off medication. If blood pressure elevated then will restart medication. Bipolar disorder: Continue Abilify 15 mg daily, Wellbutrin XL 150 mg daily and Prozac 40 mg daily Diabetes mellitus type 2 insulin-dependent: Hemoglobin A1c 8.3. Continue to address basal insulin. Will monitor Accu-Cheks. Hyperlipidemia: Continue lovastatin 20 mg daily Code Status: Full Code DVT prophylaxis: Xarelto Advanced Care Planning-30 minutes: Home at discharge. Likely home in the next 2 to 3 days once patient is able to get below 4 L per nasal cannula Time Spent Managing Pts Care (In Minutes): 55
[2021-05-16] MEDS: INSULIN -REGULAR HUMAN 50 UNIT/0.5 ML ML SQ SCH ×4 (09:50→19:36)
[2021-05-16] MEDS: OLANZapine 10 MG TABLET PO SCH (19:35)
[2021-05-16] MEDS: BENZONATATE 100 MG CAP PO PRN (19:35)
[2021-05-16] MEDS: ATORVASTATIN 10 MG TAB PO SCH (19:36)
[2021-05-16] MEDS: MELATONIN 5 MG TABLET PO PRN (19:36)
[2021-05-17] MEDS: METHYLPREDNISOLONE 40 MG INJ IV SCH ×2 (00:52→08:06)
--- NOTE | 2021-05-17 05:50 | P.PN ---
Subjective Date of Service: 05/17/21 Primary Care Provider: Dr. Romano Chief Complaint: covid pneumonia Subjective: Improving Physical Examination - Vital Signs Temperature: 97.3 F Blood Pressure: 168/75 Pulse: 65 Respirations: 19 Pulse Ox (%): 95 Assessment & Plan Discharge Plan: Home Plan to discharge in: 24 Hours Physician Review Additional Text: COVID: Positive Initial CXR: COMPARISON: Chest Pa And Lat (2 Views) dated 08/26/2017; Chest Pa And Lat (2 Views) dated 02/06/2017 FINDINGS: Lines: None. Lungs: Limited due to poor penetration. Question some subtle airspace disease in the left mid lung and there are basilar opacities, left greater than right. Pleural: No significant pleural effusions or pneumothorax. Cardiac: Cardiomegaly. Bones: No acute fractures. IMPRESSION: Poor penetration limits evaluation. Difficult to exclude an airspace process in the left mid lung and left lung base. A PA and lateral could better evaluate. ECHO: MEASUREMENTS (cm) DIASTOLIC (NORMALS) SYSTOLIC (NORMALS) IVSd 1.2 (0.6-1.2) LA Diam 3.5 (1.9-4.0) LVEF 50% LVIDd 6.1 (3.5-5.7) LVIDs 4.5 (2.0-3.5) %FS 26% LVPWd 1.2 (0.6-1.2) Ao Diam 2.7 (2.0-3.7) 2 DIMENSIONAL ASSESSMENT: RIGHT ATRIUM: NORMAL LEFT ATRIUM: NORMAL RIGHT VENTRICLE: NORMAL LEFT VENTRICLE: NORMAL TRICUSPID VALVE: NORMAL MITRAL VALVE: NORMAL PULMONIC VALVE: NORMAL AORTIC VALVE: NORMAL PERICARDIAL EFFUSION: NONE AORTIC ROOT: NORMAL LEFT VENTRICULAR WALL MOTION: NORMAL DOPPLER/COLOR FLOW: NORMAL COMMENTS: NORMAL 2-DIMENSIONAL ECHOCARDIOGRAM WITH DOPPLER. NO WALL MOTION ABNORMALITY. NO EFFUSION. Follow up CXR 05/16/2021: COMPARISON: Chest Single View dated 05/15/2021; Chest Single View dated 05/12/2021; Chest Pa And Lat (2 Views) dated 08/26/2017; Chest Pa And Lat (2 Views) dated 02/06/2017 FINDINGS: Lines: None. Lungs: No definite evidence of edema or pneumonia. Pleural: No significant pleural effusions or pneumothorax. Cardiac: Cardiomegaly. Bones: No acute fracture IMPRESSION: Similar aeration of the lungs without definite focal acute process identified . Physical Exam: GENERAL: The patient is a well-developed, well-nourished, in no apparent distress. Alert and oriented x3. VITAL SIGNS: Reviewed HEENT: Neck supple LUNGS: Clear to auscultation. No crackles or wheezes are heard. Patient now down to 6 L per nasal cannula HEART: Regular rate and rhythm, no appreciable gallops, rubs, murmurs or extra heart sounds ABDOMEN: Soft, nontender, and nondistended. Positive bowel sounds. No hepatosplenomegaly was noted. EXTREMITIES: Without any cyanosis, clubbing, rash, lesions or peripheral edema. NEUROLOGIC: The patient is oriented to person, place and time. Strength and sensation are grossly intact. Face is symmetric. SKIN: Normal color, turgor and temperature. No ulcerations or rashes noted. Impression: Dyspnea secondary to acute respiratory failure with hypoxia related to COVID-19 Pneumonia Hypertension Bipolar disorder Diabetes mellitus type 2 insulin-dependent Hyperlipidemia Plan: Dyspnea secondary to acute respiratory failure with hypoxia related to COVID-19 Pneumonia: Patient continues to improve. Now down to 6 L per nasal cannula. Continue to wean off oxygen to maintain sats above 93%. Continue IV Solu- Medrol. Continue current plan of care. Continue to monitor CRP and ferritin. Continue to discuss with pulmonology. Encourage ambulation. Encourage lying on her side or prone position. Anticipate continued improvement. Likely home in the next 1 to 2 days if patient requiring less than 4 L per nasal cannula and ambulating well. Hypertension: BP elevated. Restart lisinopril. Consider restarting diltiazem as well if blood pressure remains elevated. Previously on diltiazem and lisinopril hydro-chlorothiazide. Bipolar disorder: Continue Abilify 15 mg daily, Wellbutrin XL 150 mg daily and Prozac 40 mg daily Diabetes mellitus type 2 insulin-dependent: Hemoglobin A1c 8.3. Continue to address basal insulin. Will monitor Accu-Cheks. Hyperlipidemia: Continue lovastatin 20 mg daily Code Status: Full Code DVT prophylaxis: Xarelto Advanced Care Planning-30 minutes: Home at discharge. Likely home in the next 1 to 2 days on home oxygen Time Spent Managing Pts Care (In Minutes): 55
[2021-05-17 06:16] LABS: Absolute Lymphocytes (CBC) 0.5 K/uL (0.7-4.9); Hematocrit 51.2 % (36.0-45.0); Lymphocytes % 6.5 % (15.3-44.8); MPV 7.5 fL (7.6-11.3); RBC Red Blood Cell Count 6.42 M/uL (3.86-4.86)
[2021-05-17 06:39] LABS: Albumin 2.6 g/dL (3.4-5.0); Bilirubin Total 0.5 mg/dL (0.2-1.0); C-Reactive Protein 6.34 mg/L (<3.00); Magnesium 2.5 mg/dL (1.8-2.4); Potassium 4.6 mmol/L (3.5-5.1); Protein, Total 6.9 g/dL (6.4-8.2)
[2021-05-17] MEDS: INSULIN -REGULAR HUMAN 50 UNIT/0.5 ML ML SQ SCH ×4 (07:30→20:13)
[2021-05-17] MEDS: THIAMINE HCL 100 MG TABLET PO SCH (08:05)
[2021-05-17] MEDS: BUPROPION HCL XL 150 MG TAB PO SCH (08:05)
[2021-05-17] MEDS: ASPIRIN EC 81 MG TAB PO SCH (08:05)
[2021-05-17] MEDS: FLUOXETINE 20 MG CAP PO SCH (08:05)
[2021-05-17] MEDS: VITAMIN D 1000 UNIT TAB PO SCH (08:05)
[2021-05-17] MEDS: FAMOTIDINE 20 MG TAB PO SCH (08:06)
[2021-05-17] MEDS: ASCORBIC ACID 500 MG TABLET PO SCH ×4 (08:06→20:13)
[2021-05-17] MEDS: RIVAROXABAN 10 MG TABLET PO SCH (08:06)
[2021-05-17] MEDS: ZINC SULFATE 220 MG CAP PO SCH (08:06)
[2021-05-17] MEDS: INSULIN GLARGINE 100 UNIT/ML SQ SCH ×2 (08:07→20:13)
[2021-05-17] MEDS: lisinopriL 10 MG TAB PO SCH ×2 (10:12→20:12)
--- NOTE | 2021-05-17 13:30 | P.PN ---
Subjective Date of Service: 05/17/21 Primary Care Provider: Dr. Romano Chief Complaint: covid pneumonia Subjective: Improving (Patient is doing well no new complaints on 6 L of nasal cannula oxygen) Review of Systems Unremarkable Physical Examination - Vital Signs Temperature: 97.3 F Blood Pressure: 168/75 Pulse: 65 Respirations: 19 Pulse Ox (%): 95 - Physical Exam General: Alert, Oriented x3 Respiratory: Clear to auscultation bilaterally, Diminished Cardiovascular: No edema, Regular rate/rhythm Assessment & Plan - Problems (Diagnosis) (1) Pneumonia due to COVID-19 virus Current Visit: Yes Status: Acute Plan: Patient is 66 years of age admitted with coronavirus pneumonia she is doing much better titrate sat to 90% plan to discharge when on 4 L changed to p.o. dexamethasone plan for discharge tomorrow
[2021-05-17] MEDS: dexAMETHasone 4 MG TAB PO SCH (20:11)
[2021-05-17] MEDS: OLANZapine 10 MG TABLET PO SCH (20:11)
[2021-05-17] MEDS: MELATONIN 5 MG TABLET PO PRN (20:11)
[2021-05-17] MEDS: MUCINEX DM 12HR.SR TAB PO PRN (20:12)
[2021-05-17] MEDS: ATORVASTATIN 10 MG TAB PO SCH (20:12)
[2021-05-17] MEDS: BENZONATATE 100 MG CAP PO PRN (20:13)
[2021-05-18 03:34] LABS: Absolute Lymphocytes (CBC) 0.5 K/uL (0.7-4.9); Hematocrit 52.3 % (36.0-45.0); Lymphocytes % 6.6 % (15.3-44.8); MPV 7.1 fL (7.6-11.3)
[2021-05-18 03:55] LABS: Albumin 2.4 g/dL (3.4-5.0); Bilirubin Total 0.5 mg/dL (0.2-1.0); C-Reactive Protein 3.03 mg/L (<3.00); Ferritin 258.4 ng/mL (8-388); Magnesium 2.6 mg/dL (1.8-2.4); Potassium 4.7 mmol/L (3.5-5.1); Protein, Total 6.4 g/dL (6.4-8.2)
--- NOTE | 2021-05-18 06:08 | P.PN ---
Subjective Date of Service: 05/18/21 Primary Care Provider: Dr. Romano Chief Complaint: covid pneumonia Subjective: Improving Physical Examination - Vital Signs Temperature: 96.9 F Blood Pressure: 119/57 Pulse: 61 Respirations: 19 Pulse Ox (%): 90 - Studies Microbiology Data (last 24 hrs): 05/13/21 00:12 Blood - Blood Aerobic Blood Culture - Final No growth in 5 days. 05/13/21 00:12 Blood - Blood Anaerobic Blood Culture - Final No growth in 5 days. 05/12/21 23:55 Blood - Blood Aerobic Blood Culture - Final No growth in 5 days. 05/12/21 23:55 Blood - Blood Anaerobic Blood Culture - Final No growth in 5 days. Assessment & Plan Discharge Plan: Home Plan to discharge in: 24 Hours Physician Review Additional Text: COVID: Positive Initial CXR: COMPARISON: Chest Pa And Lat (2 Views) dated 08/26/2017; Chest Pa And Lat (2 Views) dated 02/06/2017 FINDINGS: Lines: None. Lungs: Limited due to poor penetration. Question some subtle airspace disease in the left mid lung and there are basilar opacities, left greater than right. Pleural: No significant pleural effusions or pneumothorax. Cardiac: Cardiomegaly. Bones: No acute fractures. IMPRESSION: Poor penetration limits evaluation. Difficult to exclude an airspace process in the left mid lung and left lung base. A PA and lateral could better evaluate. ECHO: MEASUREMENTS (cm) DIASTOLIC (NORMALS) SYSTOLIC (NORMALS) IVSd 1.2 (0.6-1.2) LA Diam 3.5 (1.9-4.0) LVEF 50% LVIDd 6.1 (3.5-5.7) LVIDs 4.5 (2.0-3.5) %FS 26% LVPWd 1.2 (0.6-1.2) Ao Diam 2.7 (2.0-3.7) 2 DIMENSIONAL ASSESSMENT: RIGHT ATRIUM: NORMAL LEFT ATRIUM: NORMAL RIGHT VENTRICLE: NORMAL LEFT VENTRICLE: NORMAL TRICUSPID VALVE: NORMAL MITRAL VALVE: NORMAL PULMONIC VALVE: NORMAL AORTIC VALVE: NORMAL PERICARDIAL EFFUSION: NONE AORTIC ROOT: NORMAL LEFT VENTRICULAR WALL MOTION: NORMAL DOPPLER/COLOR FLOW: NORMAL COMMENTS: NORMAL 2-DIMENSIONAL ECHOCARDIOGRAM WITH DOPPLER. NO WALL MOTION ABNORMALITY. NO EFFUSION. Follow up CXR 05/16/2021: COMPARISON: Chest Single View dated 05/15/2021; Chest Single View dated 05/12/2021; Chest Pa And Lat (2 Views) dated 08/26/2017; Chest Pa And Lat (2 Views) dated 02/06/2017 FINDINGS: Lines: None. Lungs: No definite evidence of edema or pneumonia. Pleural: No significant pleural effusions or pneumothorax. Cardiac: Cardiomegaly. Bones: No acute fracture IMPRESSION: Similar aeration of the lungs without definite focal acute process identified . Physical Exam: GENERAL: The patient is a well-developed, well-nourished, in no apparent distress. Alert and oriented x3. VITAL SIGNS: Reviewed HEENT: Neck supple LUNGS: Clear to auscultation. No crackles or wheezes are heard. Patient now down to 4 L per nasal cannula HEART: Regular rate and rhythm, no appreciable gallops, rubs, murmurs or extra heart sounds ABDOMEN: Soft, nontender, and nondistended. Positive bowel sounds. No hepatosplenomegaly was noted. EXTREMITIES: Without any cyanosis, clubbing, rash, lesions or peripheral edema. NEUROLOGIC: The patient is oriented to person, place and time. Strength and sensation are grossly intact. Face is symmetric. SKIN: Normal color, turgor and temperature. No ulcerations or rashes noted. Impression: Dyspnea secondary to acute respiratory failure with hypoxia related to COVID-19 Pneumonia Hypertension Bipolar disorder Diabetes mellitus type 2 insulin-dependent Hyperlipidemia Plan: Dyspnea secondary to acute respiratory failure with hypoxia related to COVID-19 Pneumonia: Patient continues to improve. Now down to 4 L per nasal cannula. Continue to wean off oxygen to maintain sats above 93%. Continue IV Solu- Medrol. Continue current plan of care. Continue to monitor CRP and ferritin. Continue to discuss with pulmonology. Encourage ambulation. Encourage lying on her side or prone position. Consider possible discharge as early as today or tomorrow. While physical therapy assess ambulation. Hypertension: Blood pressure improved. Continue lisinopril. Consider restarting diltiazem as well if blood pressure remains elevated. Previously on diltiazem and lisinopril hydro-chlorothiazide. Bipolar disorder: Continue Abilify 15 mg daily, Wellbutrin XL 150 mg daily and Prozac 40 mg daily Diabetes mellitus type 2 insulin-dependent: Hemoglobin A1c 8.3. Continue to address basal insulin. Will monitor Accu-Cheks. Hyperlipidemia: Continue lovastatin 20 mg daily Code Status: Full Code DVT prophylaxis: Michael Advanced Care Planning-30 minutes: Home at discharge. Home as early as today or tomorrow. Time Spent Managing Pts Care (In Minutes): 55
[2021-05-18] MEDS: INSULIN -REGULAR HUMAN 50 UNIT/0.5 ML ML SQ SCH ×4 (07:30→20:33)
[2021-05-18] MEDS: lisinopriL 10 MG TAB PO SCH ×2 (09:10→20:34)
[2021-05-18] MEDS: dexAMETHasone 4 MG TAB PO SCH ×2 (09:10→20:34)
[2021-05-18] MEDS: FLUOXETINE 20 MG CAP PO SCH (09:10)
[2021-05-18] MEDS: ASPIRIN EC 81 MG TAB PO SCH (09:10)
[2021-05-18] MEDS: FAMOTIDINE 20 MG TAB PO SCH (09:10)
[2021-05-18] MEDS: BUPROPION HCL XL 150 MG TAB PO SCH (09:11)
[2021-05-18] MEDS: INSULIN GLARGINE 100 UNIT/ML SQ SCH ×2 (09:11→20:33)
[2021-05-18] MEDS: ASCORBIC ACID 500 MG TABLET PO SCH ×4 (09:11→20:34)
[2021-05-18] MEDS: ZINC SULFATE 220 MG CAP PO SCH (09:11)
[2021-05-18] MEDS: THIAMINE HCL 100 MG TABLET PO SCH (09:11)
[2021-05-18] MEDS: RIVAROXABAN 10 MG TABLET PO SCH (09:11)
[2021-05-18] MEDS: VITAMIN D 1000 UNIT TAB PO SCH (09:11)
[2021-05-18] MEDS: OLANZapine 10 MG TABLET PO SCH (20:32)
[2021-05-18] MEDS: MELATONIN 5 MG TABLET PO PRN (20:33)
[2021-05-18] MEDS: BENZONATATE 100 MG CAP PO PRN (20:34)
[2021-05-18] MEDS: MUCINEX DM 12HR.SR TAB PO PRN (20:34)
[2021-05-18] MEDS: ATORVASTATIN 10 MG TAB PO SCH (20:34)
[2021-05-19 03:41] VITALS: O2SAT 90
[2021-05-19 04:32] LABS: Ferritin 270.1 ng/mL (8-388); Magnesium 2.2 mg/dL (1.8-2.4)
[2021-05-19 04:33] LABS: C-Reactive Protein < 2.90 mg/L (<3.00)
--- NOTE | 2021-05-19 05:53 | P.DS ---
Admission Date: 05/13/21 Discharge Date: 05/19/21 Primary Care Provider: Dr. Romano Disposition: ROUTINE DISCHARGE Discharge Condition: GOOD Reason for Admission: covid pneumonia Consultations: Pulmonary-Dr. Ag Procedures: COVID: Positive Initial CXR: COMPARISON: Chest Pa And Lat (2 Views) dated 08/26/2017; Chest Pa And Lat (2 Views) dated 02/06/2017 FINDINGS: Lines: None. Lungs: Limited due to poor penetration. Question some subtle airspace disease in the left mid lung and there are basilar opacities, left greater than right. Pleural: No significant pleural effusions or pneumothorax. Cardiac: Cardiomegaly. Bones: No acute fractures. IMPRESSION: Poor penetration limits evaluation. Difficult to exclude an airspace process in the left mid lung and left lung base. A PA and lateral could better evaluate. ECHO: MEASUREMENTS (cm) DIASTOLIC (NORMALS) SYSTOLIC (NORMALS) IVSd 1.2 (0.6-1.2) LA Diam 3.5 (1.9-4.0) LVEF 50% LVIDd 6.1 (3.5-5.7) LVIDs 4.5 (2.0-3.5) %FS 26% LVPWd 1.2 (0.6-1.2) Ao Diam 2.7 (2.0-3.7) 2 DIMENSIONAL ASSESSMENT: RIGHT ATRIUM: NORMAL LEFT ATRIUM: NORMAL RIGHT VENTRICLE: NORMAL LEFT VENTRICLE: NORMAL TRICUSPID VALVE: NORMAL MITRAL VALVE: NORMAL PULMONIC VALVE: NORMAL AORTIC VALVE: NORMAL PERICARDIAL EFFUSION: NONE AORTIC ROOT: NORMAL LEFT VENTRICULAR WALL MOTION: NORMAL DOPPLER/COLOR FLOW: NORMAL COMMENTS: NORMAL 2-DIMENSIONAL ECHOCARDIOGRAM WITH DOPPLER. NO WALL MOTION ABNORMALITY. NO EFFUSION. Follow up CXR 05/16/2021: COMPARISON: Chest Single View dated 05/15/2021; Chest Single View dated 05/12/2021; Chest Pa And Lat (2 Views) dated 08/26/2017; Chest Pa And Lat (2 Views) dated 02/06/2017 FINDINGS: Lines: None. Lungs: No definite evidence of edema or pneumonia. Pleural: No significant pleural effusions or pneumothorax. Cardiac: Cardiomegaly. Bones: No acute fracture IMPRESSION: Similar aeration of the lungs without definite focal acute process identified . Medical Problem list: Dyspnea secondary to acute respiratory failure with hypoxia related to COVID-19 Pneumonia Acute renal insufficiency likely dehydration with suspected chronic renal disease stage III Hypertension Bipolar disorder Diabetes mellitus type 2 insulin-dependent Hyperlipidemia Brief History of Present Illness: 66-year-old female with history of diabetes, hypertension, hyperlipidemia presented with hypoxia and fever. Symptoms started several days prior. Patient tested positive on Covid. She came to the ER for further evaluation. Patient was seen and evaluated. Patient required hospitalization. Hospital Course: Patient presented with dyspnea secondary to acute respiratory failure with hypoxia related to COVID-19 pneumonia. Patient required hospitalization and treatment. Patient received IV steroids with improvement. Her condition improved during the course of her stay. Patient was seen and evaluated by pulmonology. At discharge she is without significant shortness of breath. Patient still requiring oxygen which will be arranged at home. At discharge she will continue with home oxygen to maintain sats above 93%. Currently on 2.5 L per nasal cannula. At discharge she will continue with Decadron 4 mg 1 pill twice daily for 7 days then 1 pill once daily for 7 days. Patient will be provided Tessalon Perles 3 times a day as needed for cough. Patient may continue with aspirin 81 mg daily, zinc 220 mg daily, vitamin C 500 mg daily, vitamin D 1000 mg daily, and thiamine 100 mg daily. Recommend follow-up with pulmonology in 1 week to follow-up his hospitalization. Pulmonology will help wean her off oxygen. Patient will need to decrease her activities for now. Follow-up with PCP within 1 week to follow-up his hospitalization. Education/CDC guidelines on COVID-19 provided. Patient will continue with face mask use, social distancing and handwashing. Patient also presented with acute renal insufficiency. Patient received IV fluids with improvement. Suspect underlying chronic renal disease stage III. Medications have been adjusted. Patient has been taken off hydrochlorothiazide. Renal function appears back to baseline. Recommend to recheck labBMP in 1 week to monitor progress. Future medications may need to be renally dosed. Recommend no further use of nonsteroidal anti-inflammatories. Patient with hypertension. Medications have been adjusted during the course of her stay. Patient previously on lisinopril hydrochlorothiazide 20/25 mg 2 pills daily and diltiazem 90 mg 4 times a day both medications have been discontinued. Blood pressure stable on lisinopril. At discharge she will continue with lisinopril 20 mg 1 pill twice daily. Recommend to maintain blood pressure less than 130/80. Hold blood pressure medication if blood pressure systolic less than 110. If blood pressure remains above 140/90 additional medication may be required. This can be done with the help of her previous PCP. Consider Norvasc instead of diltiazem in the future if this is required. Recommend follow-up with her PCP to further monitor and address. Patient with diabetes mellitus type 2 insulin-dependent. Hemoglobin A1c 8.3. At discharge patient will continue with her current medications including NovoLog and 20 units subcu twice daily, Metformin 500 mg twice daily, and Amaryl 4 mg 1 pill twice daily. Recommend to monitor her blood sugars at least twice daily. Recommend to maintain blood sugar less than 140 fasting and less than 200 for meals. Recommend to recheck hemoglobin A1c every 3 months to monitor progress. Consider discontinuing Metformin if renal functionGFR less than 30. Recommend to monitor labBMP closely to monitor and address. This can be done with the help of her PCP. May need to hold Amaryl if with low blood sugars. Recommend follow-up with her PCP to further monitor and address. Patient with bipolar disorder. Overall stable. At discharge patient will continue with Wellbutrin XL 150 mg daily, Prozac 40 mg daily, Zyprexa 15 mg at bedtime, and Atarax 50 mg 3 times a day as needed for agitation. Patient with hyperlipidemia. At discharge patient will continue with lovastatin 20 mg daily. Vital Signs/Physical Exam: Temp Pulse Resp BP Pulse Ox 97 F 73 19 146/70 H 91 05/19/21 04:00 05/19/21 04:00 05/19/21 04:00 05/19/21 04:00 05/19/21 04:00 General: Alert, In no apparent distress, Oriented x3, Cooperative HEENT: Atraumatic Neck: Supple Respiratory: Clear to auscultation bilaterally, Normal air movement, Other (Currently on 2.5 L) Cardiovascular: Normal pulses, Regular rate/rhythm Gastrointestinal: Normal bowel sounds, No tenderness, No masses, No rebound, No guarding Musculoskeletal: No erythema, No tenderness, No warmth Integumentary: No tenderness/swelling, No erythema, No warmth, No cyanosis Neurological: Normal speech, Normal strength at 5/5 x4 extr, Normal tone, Normal affect Laboratory Data at Discharge: WBC 7.60 K/uL (4.3-10.9) 05/18/21 03:08 Hgb 16.2 g/dL (12.0-15.0) H 05/18/21 03:08 Hct 52.3 % (36.0-45.0) H 05/18/21 03:08 Plt Count 202 K/uL (152-406) 05/18/21 03:08 PT 12.9 SECONDS (9.5-12.5) H 05/13/21 01:23 INR 1.12 05/13/21 01:23 APTT 29.4 SECONDS (24.3-36.9) 05/13/21 01:23 Sodium 139 mmol/L (136-145) 05/18/21 03:08 Potassium 4.7 mmol/L (3.5-5.1) 05/18/21 03:08 BUN 27 mg/dL (7-18) H 05/18/21 03:08 Creatinine 1.01 mg/dL (0.55-1.3) 05/18/21 03:08 Glucose 102 mg/dL (74-106) 05/18/21 03:08 Phosphorus 2.6 mg/dL (2.5-4.9) 05/14/21 03:38 Magnesium 2.2 mg/dL (1.8-2.4) 05/19/21 03:48 Total Bilirubin 0.5 mg/dL (0.2-1.0) 05/18/21 03:08 AST 13 U/L (15-37) L 05/18/21 03:08 ALT 35 U/L (12-78) 05/18/21 03:08 Alkaline Phosphatase 55 U/L (45-117) 05/18/21 03:08 Triglycerides 85 mg/dL (<150) 05/14/21 03:38 Cholesterol 149 mg/dL (<200) 05/14/21 03:38 HDL Cholesterol 52 mg/dL (40-60) 05/14/21 03:38 Cholesterol/HDL Ratio 2.87 05/14/21 03:38 Home Medications: Bupropion HCl [Wellbutrin Xl] 150 mg PO DAILY 05/13/21 Fluoxetine HCl [Prozac] 40 mg PO DAILY 05/13/21 Glimepiride 4 mg PO BID 05/13/21 Hydroxyzine HCl [Atarax] 50 mg PO TIDP PRN 05/13/21 Insulin NPH Human Isophane [Novolin N] 20 unit SQ BID 05/13/21 Lovastatin 20 mg PO BEDTIME 05/13/21 Metformin HCl 500 mg PO BID 05/13/21 Olanzapine [Zyprexa Zydis] 15 mg PO BEDTIME 05/13/21 Ascorbic Acid [Vitamin C*] 500 mg PO DAILY #30 tablet 05/19/21 Aspirin [Aspirin EC 81 MG] 81 mg PO DAILY #30 tablet. 05/19/21 Benzonatate [Tessalon Perle*] 200 mg PO TID PRN #10 cap 05/19/21 Cholecalciferol (Vitamin D3) [Vitamin D 1000 Iu Tab*] 1,000 unit PO DAILY #30 tab 05/19/21 Lisinopril [Zestril] 20 mg PO BID #60 tablet 05/19/21 Thiamine HCl [Vitamin B-1*] 100 mg PO DAILY #30 tablet 05/19/21 Zinc Sulfate [Zinc Sulfate*] 220 mg PO DAILY #30 cap 05/19/21 dexAMETHasone [Decadron*] 4 mg PO SEECOM #21 tab 05/19/21 New Medications: Aspirin [Aspirin EC 81 MG] 81 mg PO DAILY #30 tablet. dexAMETHasone [Decadron*] 4 mg PO SEECOM #21 tab Benzonatate [Tessalon Perle*] 200 mg PO TID PRN #10 cap PRN Reason: Cough Thiamine HCl [Vitamin B-1*] 100 mg PO DAILY #30 tablet Ascorbic Acid [Vitamin C*] 500 mg PO DAILY #30 tablet Cholecalciferol (Vitamin D3) [Vitamin D 1000 Iu Tab*] 1,000 unit PO DAILY #30 tab Lisinopril [Zestril] 20 mg PO BID #60 tablet Zinc Sulfate [Zinc Sulfate*] 220 mg PO DAILY #30 cap Diet: ADA Activity: Ad stacia Followup: James Romano MD [Primary Care Provider] - Time spent managing pt's care (in minutes): 55
[2021-05-19] MEDS: VITAMIN D 1000 UNIT TAB PO SCH (08:39)
[2021-05-19] MEDS: INSULIN GLARGINE 100 UNIT/ML SQ SCH (08:39)
[2021-05-19] MEDS: INSULIN -REGULAR HUMAN 50 UNIT/0.5 ML ML SQ SCH ×2 (08:39→12:06)
[2021-05-19] MEDS: FAMOTIDINE 20 MG TAB PO SCH (08:40)
[2021-05-19] MEDS: lisinopriL 10 MG TAB PO SCH (08:40)
[2021-05-19] MEDS: FLUOXETINE 20 MG CAP PO SCH (08:40)
[2021-05-19] MEDS: ASPIRIN EC 81 MG TAB PO SCH (08:40)
[2021-05-19] MEDS: RIVAROXABAN 10 MG TABLET PO SCH (08:40)
[2021-05-19] MEDS: dexAMETHasone 4 MG TAB PO SCH (08:41)
[2021-05-19] MEDS: ASCORBIC ACID 500 MG TABLET PO SCH ×2 (08:41→12:05)
[2021-05-19] MEDS: ZINC SULFATE 220 MG CAP PO SCH (08:41)
[2021-05-19] MEDS: THIAMINE HCL 100 MG TABLET PO SCH (08:41)
[2021-05-19] MEDS: BUPROPION HCL XL 150 MG TAB PO SCH (08:47)
[2021-05-19 13:51] VITALS: BP 165/80; TEMP 97.8
== END 2021-05-19 14:11 | disposition home or self-care (01) | DRG 177 ==
LOC: ER 22:44 → ERHOLD 05-13 03:05 → 4TH 05-13 20:37
PROVIDERS: ADMIT Hospitalist; ATTEND Hospitalist
DX: U07.1 COVID-19 (principal); J12.82 Pneumonia due to coronavirus disease 2019; J96.01 Acute respiratory failure with hypoxia; N17.9 Acute kidney failure, unspecified; I12.9 Hypertensive chronic kidney disease with stage 1 through stage 4 chronic kidney disease, or unspecified chronic kidney disease; E11.22 Type 2 diabetes mellitus with diabetic chronic kidney disease; N18.30 Chronic kidney disease, stage 3 unspecified; F31.9 Bipolar disorder, unspecified; E78.5 Hyperlipidemia, unspecified; E86.0 Dehydration
CPT/HCPCS: 36415; 71045; 80048; 80053; 80061; 80076; 81003; 82728; 82947; 83036; 83605; 83735; 84100; 84145; 84439; 84443; 84484; 85025; 85379; 85610; 85730; 86140; 87040; 93005; 93306; 94002; 94003; 94760; 96374; 97116; 97161; 97530; 99285; J1644; J2920; J2930; J7030; J8540

== ENCOUNTER 2021-05-24 15:17 | Inpatient (IN) | payer OTHER ==
--- OUTSIDE RECORDS SUMMARY | 2021-05-24 15:22 | XMS REPORT | Continuity of Care Document ---
:1955 Author Organization [facility] t Address [address] [place] [address] Care Team Providers Name Role Phone Kristyn [...] Department ID 2020-12-21 2020-12-21 Outpatient SRINATH Sarmiento [facility] RADI [id number] [facility] 08:23:00 08:23:00 Godwin alejandro [id number] [facility] Results This patient has no known results.
[2021-05-24 18:09] LABS: Protime INR 0.99
--- NOTE | 2021-05-24 18:16 | RAD REPORT ---
EXAM DESCRIPTION: RAD - Chest Single View - 05/24/2021 5:52 pm CLINICAL HISTORY: AMS COMPARISON: Chest Single View dated 05/16/2021; Chest Single View dated 05/15/2021; Chest Single View da crescencio 05/12/2021; Chest Pa And Lat (2 Views) dated 08/26/2017 FINDINGS: Lines: None. Lungs: No evidence of edema or pneumonia. Pleural: No significant pleural effusions or pneumothorax. Cardiac: Cardiomegaly. Bones: No acute fractures. Other: IMPRESSION: No acute cardiopulmonary disease.
--- NOTE | 2021-05-24 18:22 | RAD REPORT ---
EXAM DESCRIPTION: CT - Head Brain Wo Cont - 05/24/2021 6:07 pm CLINICAL HISTORY: MENTAL STATUS CHANGE COMPARISON: No comparisons TECHNIQUE: All CT scans are performed using dose optimization technique as appropriate and may inclu de automated exposure control or mA/KV adjustment according to patient size. FINDINGS: No intracranial hemorrhage, hydrocephalus or extra-axial fluid collection.No areas of brai n edema or evidence of midline shift. The paranasal sinuses and mastoids are clear. The calvarium is intact. IMPRESSION: No acute intracranial abnormality.
[2021-05-24 18:54] LABS: Absolute Lymphocytes (CBC) 1.7 K/uL (0.7-4.9); Hematocrit 53.8 % (36.0-45.0); Lymphocytes % 13.7 % (15.3-44.8); MPV 8.1 fL (7.6-11.3); RBC Red Blood Cell Count 6.81 M/uL (3.86-4.86)
[2021-05-24 19:14] LABS: Urine Blood Negative (Negative); Urine Glucose Negative (Negative); Urine Protein Negative (Negative); Urine Specific Gravity 1.015 (1.005-1.030)
[2021-05-24 19:25] LABS: Bilirubin Direct 0.4 mg/dL (0-0.2); Bilirubin Total 1.6 mg/dL (0.2-1.0); Magnesium 1.8 mg/dL (1.8-2.4); Protein, Total 7.4 g/dL (6.4-8.2); Troponin High Sensitivity 15.7 pg/mL (<58.9)
[2021-05-24 19:50] LABS: Urine Bacteria <20 /HPF (<20); Urine RBC <5 /HPF (NONE SEEN)
[2021-05-24] MEDS ORDERED: NA CHLORIDE 0.9% 500 ML ONE (20:03)
[2021-05-24] MEDS ORDERED: VANCOMYCIN 1 GM/VIAL ONE (20:03)
[2021-05-24] MEDS ORDERED: NA CHLORIDE 0.9% 250 ML ONE (20:03)
--- NOTE | 2021-05-24 22:10 | EDPHYS ---
Physician Documentation [facility] Name: Autumn Davidson Age: 66 yrs Sex: Female : 1955 Arrival Date: 05/24/2021 Time: 15:18 Bed 7 Private MD: ED Physician Vinh Sharp HPI: 05/24 17:20 This 66 yrs old Female presents to ER via Ambulatory with complaints of Decreased cp Appetite. 17:21 The patient presents with decreased mental status. Onset: The symptoms/episode cp began/occurred 5 day(s) ago. Possible causes: new medications. Associated signs and symptoms: Pertinent positives: confusion, Pertinent negatives: abdominal pain, chest pain, seizure. Current symptoms: In the emergency department the patient's symptoms are unchanged from the initial presentation, despite home interventions. Patient's baseline: Neuro: alert and fully oriented, Motor: no deficits, Ambulation: walks without assistance, Speech: normal. Patient is accompanied to the emergency department by [id number] who reports patient was recently discharged this past Friday from [facility]. Patient had been admitted and was diagnosed with COVID-19. [id number] reports that there was some medication changes upon discharge from hospital and is concerned that these medications are causing patient to be altered. Historical: - Allergies: 16:41 Codeine; jh5 - PMHx: 16:41 Anxiety; Bronchitis; depressive disorder; diabetes mellitus; Hypercholesterolemia; jh5 Hypertensive disorder; - Immunization history:: Adult Immunizations up to date. - Social history:: Smoking status: Patient denies any tobacco usage or history of. ROS: 17:24 Constitutional: Negative for fever, poor PO intake. cp 17:24 Cardiovascular: Negative for chest pain. 17:24 Abdomen/GI: Negative for abdominal pain. 17:24 Neuro: Positive for altered mental status. 17:24 All other systems are negative. Exam: 17:30 Constitutional: The patient appears in no acute distress, alert, awake, cp non-diaphoretic, non-toxic, well developed, well nourished, obese. 17:30 Head/Face: Normocephalic, atraumatic. cp 17:30 Eyes: Periorbital structures: appear normal, Pupils: equal, round, and reactive to light and accomodation, Extraocular movements: intact throughout, Conjunctiva: normal, no exudate, no injection, Sclera: no appreciated abnormality, Lids and lashes: appear normal, bilaterally. 17:30 ENT: External ear(s): are unremarkable, Ear canal(s): are normal, clear, TM's: dullness, bilaterally, Nose: is normal, Mouth: Lips: moist, Oral mucosa: moist, Posterior pharynx: Airway: no evidence of obstruction, patent. 17:30 Neck: ROM/movement: is normal, is supple, without pain, no range of motions limitations, no meningismus. 17:30 Chest/axilla: Inspection: normal. 17:30 Cardiovascular: Rate: normal, Rhythm: regular, Edema: is not appreciated, JVD: is not appreciated. 17:30 Respiratory: the patient does not display signs of respiratory distress, Respirations: normal, no use of accessory muscles, no retractions, labored breathing, is not present, Breath sounds: are clear throughout, no decreased breath sounds, no stridor, no wheezing. 17:30 Abdomen/GI: Inspection: abdomen appears normal, Palpation: abdomen is soft and non-tender, in all quadrants. 17:30 Back: CVA tenderness, is absent. 17:30 Skin: abscess, that is small, of the left suprapubic area, with drainage, that is bloody, that is purulent, cellulitis, irregular, on the left suprapubic area. 17:30 Neuro: Orientation: to person, Not oriented to place, time, Mentation: able to follow commands, confused, Motor: moves all fours, strength is normal. 17:50 ECG was reviewed by the Attending Physician. cp Vital Signs: 16:32 BP 116 / 70; Pulse 89; Resp 20; Temp 98.6; Pulse Ox 94% on 2 lpm NC; Weight 136.08 kg; 5 Height 5 ft. 6 in. (167.64 cm); Pain 0/10; 17:25 BP 114 / 100; Pulse 93; Resp 22; Pulse Ox 97% on 5 lpm NC; ld1 20:38 BP 129 / 107; Pulse 82; Resp 24; Pulse Ox 99% ; st1 16:32 Body Mass Index 48.42 (136.08 kg, 167.64 cm) [facility] MDM: 17:02 Patient medically screened. cp 19:00 Differential Diagnosis: CVA, intracranial bleed, meningitis, overdose, pneumonia, cp seizure, sepsis, UTI, volume depletion. 22:05 Data reviewed: vital signs, nurses notes, lab test result(s), EKG, radiologic studies, cp CT scan, plain films. 22:05 Test interpretation: by ED physician or midlevel provider: ECG, plain radiologic cp studies. Physician consultation: Major PADILLA was called at 22:00, was contacted at 22:00, regarding admission, to the telemetry unit. patient's condition. 05/24 17:17 Order name: Lactate 05/24 17:17 Order name: Procalcitonin 05/24 17:17 Order name: Basic Metabolic Panel 05/24 17:17 Order name: CBC with Diff; Complete Time: 19:48 05/24 19:48 Interpretation: Normal except: WBC 12.30; RBC 6.81; HGB 17.0; HCT 53.8; MCV 79.0; MCH cp 24.9; MCHC 31.5; PLT 376; RDW 19.1; MPV 8.1; MINESH% 76.7; LYM% 13.7; NEUT A 9.4. 05/24 17:17 Order name: LFT's; Complete Time: 19:48 cp 05/24 19:51 Interpretation: Normal except: BILIT 1.6; BILID 0.4; ALB 3.0; GLOB 4.4; A/G 0.7. cp 05/24 17:17 Order name: Magnesium; Complete Time: 19:48 cp 05/24 17:17 Order name: NT PRO-BNP; Complete Time: 19:48 cp 05/24 17:17 Order name: PT-INR; Complete Time: 19:48 cp 05/24 17:17 Order name: Troponin HS; Complete Time: 19:48 cp 05/24 17:17 Order name: Blood Culture Adult (2) cp 05/24 17:17 Order name: Urine Microscopic Only; Complete Time: 19:51 cp 05/24 19:52 Interpretation: Reviewed. 05/24 17:17 Order name: Lactate; Complete Time: 19:48 EDMS 05/24 17:17 Order name: Procalcitonin; Complete Time: 19:48 EDMS 05/24 17:17 Order name: Basic Metabolic Panel; Complete Time: 19:48 EDMS 05/24 19:49 Interpretation: Normal except: NA 129; CL 94; GLUC 261; BUN 27; GFR 46. 05/24 17:17 Order name: XRAY Chest (1 view); Complete Time: 19:48 05/24 17:17 Order name: EKG; Complete Time: 17:18 05/24 17:17 Order name: Cardiac monitoring; Complete Time: 17:28 05/24 17:17 Order name: CT Head Brain wo Cont; Complete Time: 19:48 05/24 18:57 Order name: Wound Culture 05/24 19:14 Order name: Urine Dipstick-Ancillary; Complete Time: 19:48 EDNC 05/24 20:34 Order name: COVID-19 SARS RT PCR (Document "Date of Onset" if Symptomatic) tw5 05/24 20:35 Order name: SARS-COV-2 RT PCR; Complete Time: 22:02 EDNC 05/24 22:02 Interpretation: Results reviewed. 05/25 00:26 Order name: CONS Physician Consult EDNC 05/25 01:14 Order name: Glucose, Ancillary Testing EDNC 05/25 04:51 Order name: CBC with Automated Diff EDNC 05/25 05:12 Order name: Comprehensive Metabolic Panel EDNC 05/25 08:19 Order name: Glucose, Ancillary Testing EDNC 05/24 17:17 Order name: EKG - Nurse/Tech; Complete Time: 17:52 05/24 17:17 Order name: IV Saline Lock; Complete Time: 17:52 05/24 17:17 Order name: Labs collected and sent; Complete Time: 17:52 05/24 17:17 Order name: O2 Per Protocol; Complete Time: 17:28 05/24 17:17 Order name: O2 Sat Monitoring; Complete Time: 17:28 05/24 17:17 Order name: Urine Dipstick-Ancillary (obtain specimen); Complete Time: 19:09 05/24 17:39 Order name: Villegas; Complete Time: 19:09 EC:50 Rate is 92 beats/min. Rhythm is regular. MN interval is normal. QRS interval is normal. cp QT interval is normal. T waves are Inverted in lead aVR. Interpreted by me. Reviewed by me. Administered Medications: 20:12 Drug: NS 0.9% 500 ml Route: IV; Rate: bolus; Site: left forearm; 5 20:12 Drug: vancoMYCIN 1 grams Route: IVPB; Infused Over: 2 hrs; Site: left forearm; 5 05/25 00:44 Drug: NS 0.9% 500 ml Route: IV; Rate: 75 ml/hr; Site: left antecubital; 5 Disposition: 05/24 22:20 Chart complete. cp Disposition Summary: 05/24/21 22:07 Hospitalization Ordered Hospitalization Status: Inpatient Admission cp Provider: Everett Do cp Condition: Stable cp Problem: new cp Symptoms: are unchanged cp Bed/Room Type: Standard cp Location: Telemetry/MedSurg (Inpatient)(05/25/21 10:15) eb Room Assignment: [facility](05/25/21 10:15) eb Diagnosis - Altered mental status, unspecified cp - Cellulitis of other sites cp - SARS-associated coronavirus as the cause of diseases classified elsewhere cp Forms: - Medication Reconciliation Form cp - SBAR form cp Addendum: 06/06/2021 18:42 Co-signature as Attending Physician, Vinh Sharp MD PA/PLATFORM ST[employer]ER's history reviewed, m a2 patient interviewed, and examined. I agree with assessment and care plan and confirm the diagnosis (es) above. Signatures: Dispatcher [employer] Modesta Dupont RN RN mw Page, Corey, PA PA cp Alzahri, Mohammad, MD MD ma2 Nida Mckeon Jessica, RN RN jh5 Joanna Mills RN RN [id number] Corrections: (The following items were deleted from the chart) 05/24 22:08 22:07 Telemetry/MedSurg (Inpatient) [facility] 22:07 cp mw 05/25 10:15 05/24 22:08 [facility] ER HOLD mw eb 05/25 10:05/24 22:08 ERHOLD- mw eb
--- NOTE | 2021-05-24 22:10 | ER ---
Nurse's Notes [facility] Name: Autumn Davidson Age: 66 yrs Sex: Female : 1955 Arrival Date: 05/24/2021 Time: 15:18 Bed 7 Private MD: Diagnosis: Altered mental status, unspecified;Cellulitis of other sites;SARS-associated coronavirus as the cause of diseases classified elsewhere Presentation: 05/24 16:32 Chief complaint: Patient states: "There is too much in my head" family states she is jh5 confused and having hallucinations. May 13 and was discharged on the and since being home has had these mental complications; Pt was discharged on the . Pt family concerned her new memds are crossing with her psych meds and it's affected her mental status. Coronavirus screen: Vaccine status: Patient reports receiving the 2nd dose of the covid vaccine. Client denies travel out of the [place] in the last 14 days. Ebola Screen: Patient negative for fever greater than or equal to 101.5 degrees Fahrenheit, and additional compatible Ebola Virus Disease symptoms Patient denies exposure to infectious person. Patient denies travel to an Ebola-affected area in the 21 days before illness onset. Initial Sepsis Screen: Does the patient meet any 2 criteria? No. Patient's initial sepsis screen is negative. Does the patient have a suspected source of infection? No. Patient's initial sepsis screen is negative. Risk Assessment: Do you want to hurt yourself or someone else? Patient reports no desire to harm self or others. Onset of symptoms was May 20, 2021. 16:32 Method Of Arrival: Ambulatory [facility] 16:32 Acuity: NOAH 3 [facility] Triage Assessment: 16:41 General: Appears uncomfortable, obese, Behavior is calm, cooperative, appropriate for [facility] age, anxious. Pain: Denies pain. Historical: - Allergies: 16:41 Codeine; jh5 - PMHx: 16:41 Anxiety; Bronchitis; depressive disorder; diabetes mellitus; Hypercholesterolemia; jh5 Hypertensive disorder; - Immunization history:: Adult Immunizations up to date. - Social history:: Smoking status: Patient denies any tobacco usage or history of. Screenin:25 Abuse screen: Denies threats or abuse. Denies injuries from another. Nutritional ld1 screening: No deficits noted. Tuberculosis screening: No symptoms or risk factors identified. Fall Risk None identified. Assessment: 17:25 General: Appears in no apparent distress. comfortable, Behavior is agitated, anxious, ld1 inappropriate for age. Pain: Denies pain. Neuro: Level of Consciousness is awake, confused, Oriented to person. Neuro: Reports. Cardiovascular: Capillary refill < 3 seconds Patient's skin is warm and dry. Respiratory: Airway is patent Respiratory effort is even, unlabored, Respiratory pattern is regular, symmetrical. GI: Abdomen is round non-distended. : No signs and/or symptoms were reported regarding the genitourinary system. EENT: No signs and/or symptoms were reported regarding the EENT system. Derm: No signs and/or symptoms reported regarding the dermatologic system. Musculoskeletal: No signs and/or symptoms reported regarding the musculoskeletal system. 18:44 Reassessment: Patient appears in no apparent distress at this time. Patient and/or ww family updated on plan of care and expected duration. Pain level reassessed. 20:03 General: Danielle Hiser- Daughter in Law [phone]. tw5 20:09 General: Nursing staff attempted to clean patient she stated " I cannot do anything." tw5 She stated " I dont want any help." . 20:10 Neuro: Level of Consciousness is alert, confused, Oriented to person, place. tw5 Vital Signs: 16:32 BP 116 / 70; Pulse 89; Resp 20; Temp 98.6; Pulse Ox 94% on 2 lpm NC; Weight 136.08 kg; jh5 Height 5 ft. 6 in. (167.64 cm); Pain 0/10; 17:25 BP 114 / 100; Pulse 93; Resp 22; Pulse Ox 97% on 5 lpm NC; ld1 20:38 BP 129 / 107; Pulse 82; Resp 24; Pulse Ox 99% ; st1 16:32 Body Mass Index 48.42 (136.08 kg, 167.64 cm) 5 ED Course: 15:18 Patient arrived in ED. am2 16:41 Triage completed. 5 16:41 Arm band placed on right wrist. [facility] 16:59 Hoang Mcneill PA is PHCP. cp 16:59 Vinh Sharp MD is Attending Physician. cp 17:25 Patient has correct armband on for positive identification. Placed in gown. Bed in low ld1 position. Call light in reach. Side rails up X2. monitor car operator on. Pulse ox on. NIBP on. Door closed. Noise minimized. Warm blanket given. Pillow given. 17:25 No provider procedures requiring assistance completed. Missed attempt(s): 20 gauge in ld1 right forearm. 17:29 Cyndy Alejandro, RN is Primary Nurse. ld1 17:50 Inserted saline lock: 20 gauge in left forearm, using aseptic technique. ww 17:52 XRAY Chest (1 view) In Process Unspecified. EDMS 18:06 CT Head Brain wo Cont In Process Unspecified. EDMS 19:09 Wound Culture Sent. ld1 19:32 Basic Metabolic Panel Sent. st1 19:32 Lactate Sent. st1 19:32 Procalcitonin Sent. st1 20:44 SARS-COV-2 RT PCR Sent. st1 20:44 COVID-19 SARS RT PCR (Document "Date of Onset" if Symptomatic) Sent. st1 21:41 Notified ED physician of a critical lab result(s). covid +. tw5 22:06 Everett Do is Hospitalizing Provider. cp 05/25 07:00 Patient admitted, IV remains in place. intact, No redness/swelling at site. jl7 Administered Medications: 05/24 20:12 Drug: NS 0.9% 500 ml Route: IV; Rate: bolus; Site: left forearm; sm5 20:12 Drug: vancoMYCIN 1 grams Route: IVPB; Infused Over: 2 hrs; Site: left forearm; 5 05/25 00:44 Drug: NS 0.9% 500 ml Route: IV; Rate: 75 ml/hr; Site: left antecubital; 5 Outcome: 05/24 22:07 Decision to Hospitalize by Provider. cp 05/25 07:00 Admitted to ER Hold. Please see [facility] for further documentation. jl7 Condition: stable Discharge instructions given to patient. 11:33 Patient left the ED. jl7 Signatures: Dispatcher [employer] EDMS Hoang Mcneill PA PA cp Leal, Jahala, RN RN jl7 Bonnie Batista am2 Cyndy Alejandro, DELFINA RN ld1 Monica Ríos tw5 Veronica Fam RN RN 5 Joanna Mills RN RN 5 Tiffany Ríos, RN RN ww Jessica Olguin, RN RN st1
[2021-05-25] MEDS ORDERED: NA CHLORIDE 0.9% 1,000 ML ONE ×2 (00:45→08:32)
[2021-05-25] MEDS ORDERED: HYDRALAZINE HCL 20 MG/ML VIAL IV PRN (00:46)
[2021-05-25] MEDS: HEPARIN 5000 UNIT/ML 1 ML VIAL SQ SCH ×3 (01:00→16:58)
[2021-05-25] MEDS: NA CHLORIDE 0.9% 1,000 ML IV SCH ×4 (01:00→20:01)
[2021-05-25] MEDS ORDERED: VANCOMYCIN 1 GM in NA CHLORIDE 0.9% 250 ML IVPB ONE (01:00)
[2021-05-25 02:09] VITALS: BMI 48.4
[2021-05-25] MEDS ORDERED: VANCOMYCIN 1 GM/VIAL ONE (02:30)
[2021-05-25] MEDS ORDERED: NA CHLORIDE 0.9% 250 ML ONE (02:31)
--- NOTE | 2021-05-25 03:45 | P.HP ---
Certification for Inpatient Patient admitted to: Inpatient With expected LOS: <2 Midnights Patient will require the following post-hospital care: None Practitioner: I am a practitioner with admitting privileges, knowledge of patient current condition, hospital course, and medical plan of care. Services: Services provided to patient in accordance with Admission requirements found in Title 42 Section 412.3 of the Code of Federal Regulations <Major Coleman - Last Filed: 05/25/21 03:56> Patient History Date of Service: 05/25/21 Reason for admission: AMS History of Present Illness: Ms. Davidson is a 66 yo F with DM, HTN, HLD, bipolar disorder, chronic bronchitis who was brought in by family for 5 days of confusion, AMS and anorexia. She was recently discharged from the hospital after treatment for COVID pneumonia, discharged on home O2. Her daughter is worried that her new medications are the cause for her symptoms. She has a wound near her groin that is draining fluid, suspicious for cellulitis. She is very agitated and does not want anyone to touch her. She says she is having diarrhea but is refusing the nurses to change her. She is AOx4 but appears to be hallucinating. WBC 12.3 H/H 17 MCV 79 Na 129 Cl 94 BUN 27 GFR 46 Glu 261 Tbili 1.6 Dbili 0.4. - Past Medical/Surgical History Diabetic: Yes -: HTN -: DM -: HLD -: chronic bronchitis - Family History Mother -: Heart disease, Diabetes Father -: Stroke Brother -: Cancer Notes: rectal, intestinal, liver- Sister -: Cancer Notes: uterine - Social History Smoking Status: Unknown if ever smoked Alcohol use: No CD- Drugs: No Caffeine use: Yes Place of Residence: Home <Nhi Colemanneeta Lopes - Last Filed: 05/25/21 03:56> Date of Service: 05/25/21 <Vinh Dubois - Last Filed: 05/27/21 23:29> Allergies No Known Allergies Allergy (Unverified 05/13/21 03:31) Home Medications: Bupropion HCl [Wellbutrin Xl] 150 mg PO DAILY 05/13/21 Fluoxetine HCl [Prozac] 40 mg PO DAILY 05/13/21 Glimepiride 4 mg PO BID 05/13/21 Hydroxyzine HCl [Atarax] 50 mg PO TIDP PRN 05/13/21 Insulin NPH Human Isophane [Novolin N] 20 unit SQ BID 05/13/21 Lovastatin 20 mg PO BEDTIME 05/13/21 Metformin HCl 500 mg PO BID 05/13/21 Olanzapine [Zyprexa Zydis] 15 mg PO BEDTIME 05/13/21 Ascorbic Acid [Vitamin C*] 500 mg PO DAILY #30 tablet 05/19/21 Aspirin [Aspirin EC 81 MG] 81 mg PO DAILY #30 tablet. 05/19/21 Benzonatate [Tessalon Perle*] 200 mg PO TID PRN #10 cap 05/19/21 Cholecalciferol (Vitamin D3) [Vitamin D 1000 Iu Tab*] 1,000 unit PO DAILY #30 tab 05/19/21 Lisinopril [Zestril] 20 mg PO BID #60 tablet 05/19/21 Thiamine HCl [Vitamin B-1*] 100 mg PO DAILY #30 tablet 05/19/21 Zinc Sulfate [Zinc Sulfate*] 220 mg PO DAILY #30 cap 05/19/21 dexAMETHasone [Decadron*] 4 mg PO SEECOM #21 tab 05/19/21 Review of Systems 10-point ROS is otherwise unremarkable General: Unremarkable Eyes: Unremarkable ENT: Unremarkable Respiratory: Shortness of Breath Cardiovascular: Unremarkable Gastrointestinal: Diarrhea Genitourinary: Unremarkable Musculoskeletal: Unremarkable Integumentary: Rash Neurological: Confusion Lymphatics: Unremarkable <Major Coleman - Last Filed: 05/25/21 03:56> Physical Examination - Physical Exam General: Oriented x3, Obese HEENT: Atraumatic, PERRLA, Mucous membr. moist/pink, EOMI, Sclerae nonicteric Neck: Supple, 2+ carotid pulse no bruit, No LAD, Without JVD or thyroid abnormality Respiratory: Clear to auscultation bilaterally, Normal air movement Cardiovascular: No edema, Regular rate/rhythm, Normal S1 S2 Gastrointestinal: Normal bowel sounds, No tenderness Musculoskeletal: No tenderness Integumentary: Tenderness/swelling, Erythema Neurological: Normal speech, Normal strength at 5/5 x4 extr, Normal tone, Abnormal affect Lymphatics: No axilla or inguinal lymphadenopathy Urinary: Villegas catheter - Studies Laboratory Data (last 24 hrs) 05/24/21 17:40: PT 11.4, INR 0.99 05/24/21 17:40: WBC 12.30 H D, Hgb 17.0 H, Hct 53.8 H, Plt Count 376 D 05/24/21 17:40: Sodium 129 L, Potassium 5.0, BUN 27 H, Creatinine 1.19, Glucose 261 H, Magnesium 1.8, Total Bilirubin 1.6 H, AST 15, ALT 32, Alkaline Phosphatase 71 <Major Coleman - Last Filed: 05/25/21 03:56> Assessment and Plan - Problems (Diagnosis) (1) Bipolar disorder Current Visit: Yes Status: Chronic Qualifiers: Active/Remission status: remission status unspecified Qualified Code(s): F31.9 - Bipolar disorder, unspecified (2) Hyponatremia Current Visit: Yes Status: Acute (3) AMS (altered mental status) Current Visit: Yes Status: Acute Qualifiers: Altered mental status type: unspecified Qualified Code(s): R41.82 - Altered mental status, unspecified (4) Cellulitis Current Visit: Yes Status: Acute Qualifiers: Site of cellulitis: trunk Site of cellulitis of trunk: groin Qualified Code(s): L03.314 - Cellulitis of groin (5) HLD (hyperlipidemia) Current Visit: No Status: Chronic Qualifiers: Hyperlipidemia type: unspecified Qualified Code(s): E78.5 - Hyperlipidemia, unspecified (6) HTN (hypertension) Current Visit: No Status: Chronic Qualifiers: Hypertension type: primary hypertension Qualified Code(s): I10 - Essential (primary) hypertension (7) T2DM (type 2 diabetes mellitus) Current Visit: No Status: Chronic Qualifiers: Diabetes mellitus residential insulin use: unspecified residential insulin use status Diabetes mellitus complication status: without complication Qualified Code(s): E11.9 - Type 2 diabetes mellitus without complications - Plan continue IV fluid hydration, monitor sodium levels continue IV vancomycin wound care consulted sliding scale insulin and accuchecks continue O2 as needed hydralazine PRN for BP spikes monitor mental status, unsure of baseline, will contact family in AM reconcile and continue home medications DVT ppx Discharge Plan: Home Plan to discharge in: Greater than 2 days - Advance Directives Does patient have a Living Will: Yes Does patient have a Durable POA for Healthcare: Yes - Code Status/Comfort Care Code Status Assessed: Yes (full code ) Critical Care: No Time Spent Managing Pts Care (In Minutes): 70 <Major Coleman Moses - Last Filed: 05/25/21 03:56> Date of Service: 05/25/21 Subjective Patient continues to improve with no new complaints. Arrange for placement per family's wishes Physical Examination - Physical Exam General: Oriented x3, still has some confusion; Obese Respiratory: Clear to auscultation bilaterally, Normal air movement Cardiovascular: Lower extremity edema, Regular rate/rhythm, Normal S1 S2 Gastrointestinal: Normal bowel sounds, No tenderness Integumentary: Tenderness/swelling, Erythema; left lower abdomen region Neurological: Generalized weakness and no focal deficits Assessment and Plan - Problems (Diagnosis) (1) Bipolar disorder Current Visit: Yes Status: Chronic Qualifiers: Active/Remission status: remission status unspecified Qualified Code(s): F31.9 - Bipolar disorder, unspecified (2) Hyponatremia Current Visit: Yes Status: Acute (3) AMS (altered mental status) Current Visit: Yes Status: Acute Qualifiers: Altered mental status type: unspecified Qualified Code(s): R41.82 - Altered mental status, unspecified (4) Cellulitis Current Visit: Yes Status: Acute Qualifiers: Site of cellulitis: trunk Site of cellulitis of trunk: groin Qualified Code(s): L03.314 - Cellulitis of groin (5) HLD (hyperlipidemia) Current Visit: No Status: Chronic Qualifiers: Hyperlipidemia type: unspecified Qualified Code(s): E78.5 - Hyperlipidemia, unspecified (6) HTN (hypertension) Current Visit: No Status: Chronic Qualifiers: Hypertension type: primary hypertension Qualified Code(s): I10 - Essential (primary) hypertension (7) T2DM (type 2 diabetes mellitus) Current Visit: No Status: Chronic Qualifiers: Diabetes mellitus chemist instrumentation insulin use: unspecified residential insulin use status Diabetes mellitus complication status: without complication Qualified Code(s): E11.9 - Type 2 diabetes mellitus without complications - Plan -Hep-Lock IV monitor labs -Continue with IV antibiotic therapy -Wound care consulted -Strict blood sugar and blood pressure control -Continue O2 per protocol -Spoke with family and their concern about patient's neurologic status. She has a history of psychiatric issues and they feel this is poorly controlled. They want her to go to a facility -DVT prophylaxis <Vinh Dubois - Last Filed: 05/27/21 23:29>
[2021-05-25 04:49] LABS: Absolute Lymphocytes (CBC) 1.9 K/uL (0.7-4.9); Hematocrit 48.4 % (36.0-45.0); Lymphocytes % 17.7 % (15.3-44.8); MPV 7.3 fL (7.6-11.3); RBC Red Blood Cell Count 6.15 M/uL (3.86-4.86)
[2021-05-25 05:07] LABS: Albumin 2.4 g/dL (3.4-5.0); Bilirubin Total 1.4 mg/dL (0.2-1.0); Potassium 4.2 mmol/L (3.5-5.1); Protein, Total 5.9 g/dL (6.4-8.2)
[2021-05-25] MEDS: INSULIN -REGULAR HUMAN 50 UNIT/0.5 ML ML SQ SCH ×4 (07:30→21:37)
[2021-05-25] MEDS ORDERED: HEPARIN 5000 UNIT/ML 1 ML VIAL ONE (08:31)
[2021-05-25] MEDS ORDERED: lisinopriL 20 MG TAB ONE (08:32)
[2021-05-25] MEDS: lisinopriL 20 MG TAB PO SCH ×2 (09:00→21:39)
[2021-05-25] MEDS: FLUOXETINE 20 MG CAP PO SCH (09:00)
[2021-05-25] MEDS ORDERED: VANCOMYCIN 1 GM in NA CHLORIDE 0.9% 250 ML IVPB SCH (09:00)
[2021-05-25] MEDS: BUPROPION HCL XL 150 MG TAB PO SCH (09:00)
--- NOTE | 2021-05-25 19:49 | P.CNS ---
Date of Consult: 05/25/21 Reason for Consult: Hyponatremia Requesting Physician: Vinh Dubois Chief Complaint: AMS History of Present Illness: Ms. Davidson is a 66 yo F with DM, HTN, HLD, bipolar disorder, chronic bronchitis who was brought in by family for 5 days of confusion, AMS and anorexia. She was recently discharged from the hospital after treatment for COVID pneumonia, discharged on home O2. Her daughter is worried that her new medications are the cause for her symptoms. She has a wound near her groin that is draining fluid, suspicious for cellulitis. She is very agitated and does not want anyone to touch her. She says she is having diarrhea but is refusing the nurses to change her. She is AOx4 but appears to be hallucinating. 17:20 This 66 yrs old Female presents to ER via Ambulatory with complaints of Decreased cp Appetite. 17:21 The patient presents with decreased mental status. Onset: The symptoms/episode cp began/occurred 5 day(s) ago. Possible causes: new medications. Associated signs and symptoms: Pertinent positives: confusion, Pertinent negatives: abdominal pain, chest pain, seizure. Current symptoms: In the emergency department the patient's symptoms are unchanged from the initial presentation, despite home interventions. Patient's baseline: Neuro: alert and fully oriented, Motor: no deficits, Ambulation: walks without assistance, Speech: normal. Patient is accompanied to the emergency department by [id number] who reports patient was recently discharged this past Friday from [facility]. Patient had been admitted and was diagnosed with COVID-19. [id number] reports that there was some medication changes upon discharge from hospital and is concerned that these medications are causing patient to be altered. Allergies No Known Allergies Allergy (Unverified 05/13/21 03:31) Home medications list reviewed: Yes Home Medications: Bupropion HCl [Wellbutrin Xl] 150 mg PO DAILY 05/13/21 Fluoxetine HCl [Prozac] 40 mg PO DAILY 05/13/21 Glimepiride 4 mg PO BID 05/13/21 Hydroxyzine HCl [Atarax] 50 mg PO TIDP PRN 05/13/21 Insulin NPH Human Isophane [Novolin N] 20 unit SQ BID 05/13/21 Lovastatin 20 mg PO BEDTIME 05/13/21 Metformin HCl 500 mg PO BID 05/13/21 Olanzapine [Zyprexa Zydis] 15 mg PO BEDTIME 05/13/21 Ascorbic Acid [Vitamin C*] 500 mg PO DAILY #30 tablet 05/19/21 Aspirin [Aspirin EC 81 MG] 81 mg PO DAILY #30 tablet. 05/19/21 Benzonatate [Tessalon Perle*] 200 mg PO TID PRN #10 cap 05/19/21 Cholecalciferol (Vitamin D3) [Vitamin D 1000 Iu Tab*] 1,000 unit PO DAILY #30 tab 05/19/21 Lisinopril [Zestril] 20 mg PO BID #60 tablet 05/19/21 Thiamine HCl [Vitamin B-1*] 100 mg PO DAILY #30 tablet 05/19/21 Zinc Sulfate [Zinc Sulfate*] 220 mg PO DAILY #30 cap 05/19/21 dexAMETHasone [Decadron*] 4 mg PO SEECOM #21 tab 05/19/21 - Past Medical/Surgical History Diabetic: Yes -: HTN -: DM -: HLD -: chronic bronchitis - Family History Mother Medical History: Heart disease, Diabetes Father Medical History: Stroke Brother Medical History: Cancer Notes: rectal, intestinal, liver- Sister Medical History: Cancer Notes: uterine - Social History Alcohol use: No CD- Drugs: No Caffeine use: Yes Place of Residence: Home Review of Systems 10-point ROS is otherwise unremarkable General: Weakness, Malaise Neurological: Weakness, Confusion Physical Examination Temp Pulse Resp BP Pulse Ox 97.0 F 79 20 145/76 H 94 05/25/21 16:00 05/25/21 16:00 05/25/21 16:00 05/25/21 16:00 05/25/21 16:00 General: Cooperative, Mild distress HEENT: Atraumatic Neck: Supple Cardiovascular: Regular rate/rhythm, Edema Gastrointestinal: Soft and benign, Non-distended Musculoskeletal: No clubbing, No contractures Integumentary: No rashes, No cyanosis, Erythema Neurological: Normal speech Blood work reviewed in the chart. Imagings Data: EXAM DESCRIPTION: RAD - Chest Single View - 05/24/2021 5:52 pm CLINICAL HISTORY: AMS COMPARISON: Chest Single View dated 05/16/2021; Chest Single View dated 05/15/2021; Chest Single View dated 05/12/2021; Chest Pa And Lat (2 Views) dated 08/26/2017 FINDINGS: Lines: None. Lungs: No evidence of edema or pneumonia. Pleural: No significant pleural effusions or pneumothorax. Cardiac: Cardiomegaly. Bones: No acute fractures. Other: IMPRESSION: No acute cardiopulmonary disease. EXAM DESCRIPTION: CT - Head Brain Wo Cont - 05/24/2021 6:07 pm CLINICAL HISTORY: MENTAL STATUS CHANGE COMPARISON: No comparisons TECHNIQUE: All CT scans are performed using dose optimization technique as appropriate and may include automated exposure control or mA/KV adjustment according to patient size. FINDINGS: No intracranial hemorrhage, hydrocephalus or extra-axial fluid collection.No areas of brain edema or evidence of midline shift. The paranasal sinuses and mastoids are clear. The calvarium is intact. IMPRESSION: No acute intracranial abnormality. Conclusions/Impression: LEOLA likely due to hypovolemia -Continue IVF Hyponatremia -Continue IVF -May need to stop Prozac and Wellbutrin if persistent hyponatremia HTN -Continue Lisinopril LE Edema DM II with hyperglycemia -RISS Moderate malnutrition -Start Glucerna BID Polycythemia Microcytosis -Continue IVF -Check iron levels Thank you kindly for the consultation.
[2021-05-25] MEDS ORDERED: VANCOMYCIN 2 GM in NA CHLORIDE 0.9% 500 ML IVPB SCH (20:00)
[2021-05-25] MEDS: GLUCERNA SHAKE 237 ML CAN PO SCH (21:00)
[2021-05-25] MEDS: OLANZapine 10 MG TABLET PO SCH (21:34)
[2021-05-26] MEDS: HEPARIN 5000 UNIT/ML 1 ML VIAL SQ SCH ×3 (01:40→17:12)
[2021-05-26] MEDS: NA CHLORIDE 0.9% 1,000 ML IV SCH ×3 (01:43→17:11)
[2021-05-26 04:34] LABS: Absolute Lymphocytes (CBC) 1.4 K/uL (0.7-4.9); Hematocrit 51.8 % (36.0-45.0); Lymphocytes % 11.4 % (15.3-44.8); MPV 7.5 fL (7.6-11.3); RBC Red Blood Cell Count 6.42 M/uL (3.86-4.86)
[2021-05-26 05:14] LABS: Albumin 2.7 g/dL (3.4-5.0); Bilirubin Total 1.1 mg/dL (0.2-1.0); Folic Acid, (Folate) 18.6 ng/mL (3.1-17.5); Magnesium 2.2 mg/dL (1.8-2.4); Phosphorus 3.6 mg/dL (2.5-4.9); Potassium 4.2 mmol/L (3.5-5.1); Protein, Total 6.6 g/dL (6.4-8.2); Thyroid Stimulating Hormone 0.802 uIU/mL (0.360-3.740)
[2021-05-26 05:21] LABS: Urine Appearance CLOUDY (Clear); Urine Bilirubin NEGATIVE (Negative); Urine Blood 2+ (Negative); Urine Color DK YELLOW (Yellow); Urine Glucose NEGATIVE (Negative); Urine Protein NEGATIVE (Negative); Urine Specific Gravity 1.025 (1.005-1.030); Urine pH 5.5 (5.0-7.0)
[2021-05-26 05:22] LABS: Urine Microscopic Reflex ORDER UMIC
[2021-05-26 05:30] LABS: Urine Bacteria >50 /HPF (<20); Urine Mucus 2+ /HPF (NONE SEEN); Urine RBC 20-50 /HPF (NONE SEEN)
[2021-05-26 05:31] LABS: Barbiturates NEGATIVE (NEGATIVE); Benzodiazepines NEGATIVE (NEGATIVE); Cocaine NEGATIVE (NEGATIVE); METHAMPHETAM NEGATIVE (NEGATIVE); Methadone NEGATIVE (NEGATIVE); Opiates NEGATIVE (NEGATIVE); Phencyclidine NEGATIVE (NEGATIVE); THC Cannibis NEGATIVE (NEGATIVE)
[2021-05-26] MEDS: INSULIN -REGULAR HUMAN 50 UNIT/0.5 ML ML SQ SCH ×5 (07:30→22:15)
[2021-05-26] MEDS: GLUCERNA SHAKE 237 ML CAN PO SCH ×2 (08:46→21:27)
[2021-05-26] MEDS: BUPROPION HCL XL 150 MG TAB PO SCH (08:47)
[2021-05-26] MEDS: FLUOXETINE 20 MG CAP PO SCH (08:47)
[2021-05-26] MEDS: lisinopriL 20 MG TAB PO SCH ×2 (08:47→21:26)
[2021-05-26] MEDS ORDERED: VANCOMYCIN 2 GM in NA CHLORIDE 0.9% 500 ML IVPB SCH (10:00)
[2021-05-26] MEDS: CEFTRIAXONE 1,000 MG in NA CHLORIDE 0.9% 50 ML IVPB SCH (21:26)
[2021-05-26] MEDS: OLANZapine 10 MG TABLET PO SCH (21:27)
[2021-05-27] MEDS: HEPARIN 5000 UNIT/ML 1 ML VIAL SQ SCH ×3 (00:57→18:03)
[2021-05-27] MEDS: INSULIN -REGULAR HUMAN 50 UNIT/0.5 ML ML SQ SCH ×4 (08:45→21:00)
[2021-05-27] MEDS: BUPROPION HCL XL 150 MG TAB PO SCH (09:00)
[2021-05-27] MEDS: lisinopriL 20 MG TAB PO SCH ×2 (09:00→23:53)
[2021-05-27] MEDS: CEFTRIAXONE 1,000 MG in NA CHLORIDE 0.9% 50 ML IVPB SCH ×2 (09:00→21:00)
[2021-05-27] MEDS: FLUOXETINE 20 MG CAP PO SCH (09:00)
[2021-05-27] MEDS: GLUCERNA SHAKE 237 ML CAN PO SCH ×2 (09:00→21:00)
[2021-05-27] MEDS: OLANZapine 10 MG TABLET PO SCH (21:00)
--- NOTE | 2021-05-27 23:27 | P.PN ---
Date of Service: 05/26/21 Subjective Patient doing well with no new complaints. Physical Examination - Physical Exam General: Oriented x3, Obese Respiratory: Clear to auscultation bilaterally, Normal air movement Cardiovascular: No edema, Regular rate/rhythm, Normal S1 S2 Gastrointestinal: Normal bowel sounds, No tenderness Integumentary: Tenderness/swelling, Erythema; left lower abdomen region Neurological: Generalized weakness and no focal deficits Assessment and Plan - Problems (Diagnosis) (1) Bipolar disorder Current Visit: Yes Status: Chronic Qualifiers: Active/Remission status: remission status unspecified Qualified Code(s): F31.9 - Bipolar disorder, unspecified (2) Hyponatremia Current Visit: Yes Status: Acute (3) AMS (altered mental status) Current Visit: Yes Status: Acute Qualifiers: Altered mental status type: unspecified Qualified Code(s): R41.82 - Altered mental status, unspecified (4) Cellulitis Current Visit: Yes Status: Acute Qualifiers: Site of cellulitis: trunk Site of cellulitis of trunk: groin Qualified Code(s): L03.314 - Cellulitis of groin (5) HLD (hyperlipidemia) Current Visit: No Status: Chronic Qualifiers: Hyperlipidemia type: unspecified Qualified Code(s): E78.5 - Hyperlipidemia, unspecified (6) HTN (hypertension) Current Visit: No Status: Chronic Qualifiers: Hypertension type: primary hypertension Qualified Code(s): I10 - Essential (primary) hypertension (7) T2DM (type 2 diabetes mellitus) Current Visit: No Status: Chronic Qualifiers: Diabetes mellitus half-way insulin use: unspecified half-way insulin use status Diabetes mellitus complication status: without complication Qualified Code(s): E11.9 - Type 2 diabetes mellitus without complications - Plan Hep-Lock IV monitor labs Continue with IV antibiotic therapy wound care consulted Strict blood sugar and blood pressure control Continue O2 per protocol Spoke with family and their concern about patient's neurologic status. She has a history of psychiatric issues and they feel this is poorly controlled. They want her to go to a facility DVT prophylaxis
--- NOTE | 2021-05-27 23:30 | P.PN ---
Date of Service: 05/27/21 Subjective Patient continues to do well with no new complaints. Respiratory status has been stable. Mentation is fairly stable. Physical Examination - Physical Exam General: Oriented x3, Obese; mentation is altered Respiratory: Clear to auscultation bilaterally, Normal air movement Cardiovascular: No edema, Regular rate/rhythm, Normal S1 S2 Gastrointestinal: Normal bowel sounds, No tenderness Integumentary: Tenderness/swelling, Erythema; left lower abdomen region Neurological: Generalized weakness and no focal deficits Assessment and Plan - Problems (Diagnosis) (1) Bipolar disorder Current Visit: Yes Status: Chronic Qualifiers: Active/Remission status: remission status unspecified Qualified Code(s): F31.9 - Bipolar disorder, unspecified (2) Hyponatremia Current Visit: Yes Status: Acute (3) AMS (altered mental status) Current Visit: Yes Status: Acute Qualifiers: Altered mental status type: unspecified Qualified Code(s): R41.82 - Altered mental status, unspecified (4) Cellulitis Current Visit: Yes Status: Acute Qualifiers: Site of cellulitis: trunk Site of cellulitis of trunk: groin Qualified Code(s): L03.314 - Cellulitis of groin (5) HLD (hyperlipidemia) Current Visit: No Status: Chronic Qualifiers: Hyperlipidemia type: unspecified Qualified Code(s): E78.5 - Hyperlipidemia, unspecified (6) HTN (hypertension) Current Visit: No Status: Chronic Qualifiers: Hypertension type: primary hypertension Qualified Code(s): I10 - Essential (primary) hypertension (7) T2DM (type 2 diabetes mellitus) Current Visit: No Status: Chronic Qualifiers: Diabetes mellitus technician terminal and repeater insulin use: unspecified group home insulin use status Diabetes mellitus complication status: without complication Qualified Code(s): E11.9 - Type 2 diabetes mellitus without complications - Plan Hep-Lock IV monitor labs Continue with IV antibiotic therapy Strict blood sugar and blood pressure control Continue O2 per protocol Spoke with family and their concern about patient's neurologic status. She has a history of psychiatric issues and they feel this is poorly controlled. They want her to go to a facility DVT prophylaxis
[2021-05-28] MEDS: HEPARIN 5000 UNIT/ML 1 ML VIAL SQ SCH ×3 (02:04→18:03)
[2021-05-28 06:23] LABS: Absolute Lymphocytes (CBC) 1.4 K/uL (0.7-4.9); Hematocrit 50.6 % (36.0-45.0); Lymphocytes % 11.6 % (15.3-44.8); MPV 7.7 fL (7.6-11.3); RBC Red Blood Cell Count 6.22 M/uL (3.86-4.86)
[2021-05-28 07:05] LABS: Albumin 2.4 g/dL (3.4-5.0); Bilirubin Total 0.8 mg/dL (0.2-1.0); Magnesium 2.3 mg/dL (1.8-2.4); Potassium 4.4 mmol/L (3.5-5.1); Protein, Total 6.3 g/dL (6.4-8.2)
[2021-05-28] MEDS: INSULIN -REGULAR HUMAN 50 UNIT/0.5 ML ML SQ SCH ×4 (07:30→21:00)
[2021-05-28] MEDS: NPH (HUMAN) 100 UNITS/ML INSULIN SQ SCH ×2 (09:00→22:04)
[2021-05-28] MEDS: GLUCERNA SHAKE 237 ML CAN PO SCH ×2 (09:00→21:00)
[2021-05-28] MEDS: FLUOXETINE 20 MG CAP PO SCH (09:29)
[2021-05-28] MEDS: BUPROPION HCL XL 150 MG TAB PO SCH (09:29)
[2021-05-28] MEDS: lisinopriL 20 MG TAB PO SCH ×2 (09:30→22:05)
[2021-05-28] MEDS: CEFTRIAXONE 1,000 MG in NA CHLORIDE 0.9% 50 ML IVPB SCH (09:30)
--- NOTE | 2021-05-28 16:01 | P.PN ---
Subjective Date of Service: 05/28/21 Primary Care Provider: unknown Chief Complaint: AMS Subjective: Improving Physical Examination - Vital Signs Temperature: 97.4 F Blood Pressure: 129/74 Pulse: 84 Respirations: 24 Pulse Ox (%): 90 Assessment & Plan Discharge Plan: Other ([facility] facility) Plan to discharge in: 48 Hours Physician Review Additional Text: COVID: positive CXR: COMPARISON: Chest Single View dated 05/16/2021; Chest Single View dated 05/15/2021; Chest Single View dated 05/12/2021; Chest Pa And Lat (2 Views) dated 08/26/2017 FINDINGS: Lines: None. Lungs: No evidence of edema or pneumonia. Pleural: No significant pleural effusions or pneumothorax. Cardiac: Cardiomegaly. Bones: No acute fractures. IMPRESSION: No acute cardiopulmonary disease. CT Scan: COMPARISON: No comparisons TECHNIQUE: All CT scans are performed using dose optimization technique as appropriate and may include automated exposure control or mA/KV adjustment according to patient size. FINDINGS: No intracranial hemorrhage, hydrocephalus or extra-axial fluid collection.No areas of brain edema or evidence of midline shift. The paranasal sinuses and mastoids are clear. The calvarium is intact. IMPRESSION: No acute intracranial abnormality. Physical exam: General: Oriented x3, Obese; mentation is altered Respiratory: Clear to auscultation bilaterally, Normal air movement Cardiovascular: No edema, Regular rate/rhythm, Normal S1 S2 Gastrointestinal: Normal bowel sounds, No tenderness Integumentary: Tenderness/swelling, Erythema; left lower abdomen region Neurological: Generalized weakness and no focal deficits Impression: Toxicity encephalopathy related to abdominal cellulitis, wound culture positive for Providencia stuartii Hyponatremia Hypertension Hyperlipidemia Bipolar disorder Diabetes mellitus type 2 COVID-19 positive asymptomatic Plan: Toxicity encephalopathy related to abdominal cellulitis, wound culture positive for Providencia stuartii: Case discussed with pharmacy. Will change to Bactrim. Will monitor renal function. Hyponatremia: Overall improved. Case discussed with nephrology. Hypertension: Continue lisinopril Hyperlipidemia: Continue Lipitor Bipolar disorder: Continue with her medication Wellbutrin, Zyprexa, Prozac. Diabetes mellitus type 2: Continue Accu-Cheks and sliding scale. COVID 19 positive, asymptomatic: We will monitor this closely. DVT prophylaxis: Heparin CODE STATUS: Full code [facility] care [id number] minutes: Recommend skilled placement then possibly long-term care. Time Spent Managing Pts Care (In Minutes): 55
[2021-05-28] MEDS: ONDANSETRON 4 MG/2 ML VIAL IV PRN ×2 (18:01→23:43)
--- NOTE | 2021-05-28 18:19 | P.PN ---
Date of Service: 05/28/21 Vital Signs Temp Pulse Resp BP Pulse Ox 97.4 F 84 24 H 129/74 90 L 05/28/21 16:02 05/28/21 16:02 05/28/21 16:02 05/28/21 16:02 05/28/21 16:02 Medications Acetaminophen (Acetaminophen 500 Mg Tab) 500 mg PO Q4HP PRN PRN Reason: Pain scale 2-4 (Mild) Atorvastatin Calcium (Atorvastatin 10 Mg Tab) 10 mg PO BEDTIME [facility] Bupropion HCl (Bupropion Hcl Xl 150 Mg Tab) 150 mg PO DAILY [facility] Last Admin: 05/28/21 09:29 Dose: 150 mg Documented by: Enteral Nutritional Formula (Glucerna Shake 237 Ml Can) 237 ml PO BID [facility] Last Admin: 05/28/21 09:00 Dose: 237 ml Documented by: Fluoxetine HCl (Fluoxetine 20 Mg Cap) 40 mg PO DAILY [facility] Last Admin: 05/28/21 09:29 Dose: 40 mg Documented by: Heparin Sodium (Porcine) (Heparin 5000 Unit/Ml 1 Ml Vial) 5,000 unit SQ Q8HR [facility] Last Admin: 05/28/21 18:03 Dose: 5,000 unit Documented by: Hydralazine HCl (Hydralazine Hcl 20 Mg/Ml Vial) 10 mg IV Q6HP PRN PRN Reason: Titrate to SBP (MUST DEFINE) Hydroxyzine HCl (Hydroxyzine Hcl 25 Mg Tab) 50 mg PO TIDP PRN PRN Reason: ANXIETY Insulin Human NPH (Nph (Human) 100 Units/Ml Insulin) 20 units SQ BID [facility] Last Admin: 05/28/21 09:00 Dose: Not Given Documented by: Insulin Human Regular (Insulin -Regular Human 50 Unit/0.5 Ml Ml) 0 unit SQ [facility]; Protocol Last Admin: 05/28/21 17:58 Dose: 4 unit Documented by: Lisinopril (Lisinopril 20 Mg Tab) 20 mg PO BID [facility] Last Admin: 05/28/21 09:30 Dose: 20 mg Documented by: Olanzapine (Olanzapine 10 Mg Tablet) 15 mg PO BEDTIME [facility] Last Admin: 05/27/21 21:00 Dose: 15 mg Documented by: Ondansetron HCl (Ondansetron 4 Mg/2 Ml Vial) 4 mg IV Q6HP PRN PRN Reason: NAUSEA / VOMITING Last Admin: 05/28/21 18:01 Dose: 4 mg Documented by: Sodium Chloride (Flush Normal Saline 10 Ml) 10 ml IV BID [facility] Last Admin: 05/28/21 09:00 Dose: 10 ml Documented by: Trimethoprim/Sulfamethoxazole (Smz./Tmp. 800/160 Mg Tablet) 1 tab PO BID [facility] Microbiology Results 05/24/21 19:00 Wound - Left Abdomen Gram Stain - Final 05/24/21 19:00 Wound - Left Abdomen Culture & Sensitivity - Final Providencia Stuartii 05/24/21 17:30 Blood - Blood Aerobic Blood Culture - Preliminary No growth in 24 hours. 05/24/21 17:30 Blood - Blood Anaerobic Blood Culture - Preliminary No growth in 24 hours. 05/24/21 17:40 Blood - Blood Aerobic Blood Culture - Preliminary No growth in 24 hours. 05/24/21 17:40 Blood - Blood Anaerobic Blood Culture - Preliminary No growth in 24 hours. Assessment/ Plan: Nephrology No dyspnea No chest pain No acute events overnight Limited IH/ ROS due to AMS Vitals, medications, blood work and imaging reviewed in the chart General: Cooperative, Mild distress HEENT: Atraumatic Neck: Supple Cardiovascular: Regular rate/rhythm, Edema Gastrointestinal: Soft and benign, Non-distended Musculoskeletal: No clubbing, No contractures Integumentary: No rashes, No cyanosis, Erythema Neurological: Normal speech Blood work reviewed in the chart. Imagings Data: EXAM DESCRIPTION: RAD - Chest Single View - 05/24/2021 5:52 pm CLINICAL HISTORY: AMS COMPARISON: Chest Single View dated 05/16/2021; Chest Single View dated 05/15/2021; Chest Single View dated 05/12/2021; Chest Pa And Lat (2 Views) dated 08/26/2017 FINDINGS: Lines: None. Lungs: No evidence of edema or pneumonia. Pleural: No significant pleural effusions or pneumothorax. Cardiac: Cardiomegaly. Bones: No acute fractures. Other: IMPRESSION: No acute cardiopulmonary disease. EXAM DESCRIPTION: CT - Head Brain Wo Cont - 05/24/2021 6:07 pm CLINICAL HISTORY: MENTAL STATUS CHANGE COMPARISON: No comparisons TECHNIQUE: All CT scans are performed using dose optimization technique as appropriate and may include automated exposure control or mA/KV adjustment according to patient size. FINDINGS: No intracranial hemorrhage, hydrocephalus or extra-axial fluid collection.No areas of brain edema or evidence of midline shift. The paranasal sinuses and mastoids are clear. The calvarium is intact. IMPRESSION: No acute intracranial abnormality. Conclusions/Impression: LEOLA likely due to hypovolemia, resolved -No NSAIDs Hyponatremia -Encourage nutrition HTN -Continue Lisinopril LE Edema -Low sodium diet -Consider Bumex as needed DM II with hyperglycemia -RISS Moderate malnutrition -Continue Glucerna BID Polycythemia Microcytosis Iron saturation 26% -Monitor H&H Case reviewed with Dr. Mejia Plan for SNF placement
[2021-05-28] MEDS ORDERED: SMZ./TMP. 800/160 MG TABLET PO SCH (21:00)
[2021-05-28] MEDS: ATORVASTATIN 10 MG TAB PO SCH (22:04)
[2021-05-28] MEDS: OLANZapine 10 MG TABLET PO SCH (22:05)
[2021-05-29 03:49] LABS: Absolute Lymphocytes (CBC) 1.2 K/uL (0.7-4.9); Hematocrit 50.2 % (36.0-45.0); Lymphocytes % 10.3 % (15.3-44.8); MPV 7.8 fL (7.6-11.3); RBC Red Blood Cell Count 6.18 M/uL (3.86-4.86)
[2021-05-29 04:03] LABS: Magnesium 2.7 mg/dL (1.8-2.4); Potassium 4.5 mmol/L (3.5-5.1)
--- NOTE | 2021-05-29 06:18 | P.PN ---
Subjective Date of Service: 05/29/21 Primary Care Provider: unknown Chief Complaint: AMS Subjective: Other (Patient reports that she is thirsty. Patient on 3 L per nasal cannula.) Physical Examination - Vital Signs Temperature: 97 F Blood Pressure: 117/55 Pulse: 81 Respirations: 19 Pulse Ox (%): 90 Assessment & Plan Discharge Plan: Other (group home facility) Plan to discharge in: 48 Hours Physician Review Additional Text: COVID: positive CXR: COMPARISON: Chest Single View dated 05/16/2021; Chest Single View dated 05/15/2021; Chest Single View dated 05/12/2021; Chest Pa And Lat (2 Views) dated 08/26/2017 FINDINGS: Lines: None. Lungs: No evidence of edema or pneumonia. Pleural: No significant pleural effusions or pneumothorax. Cardiac: Cardiomegaly. Bones: No acute fractures. IMPRESSION: No acute cardiopulmonary disease. CT Scan: COMPARISON: No comparisons TECHNIQUE: All CT scans are performed using dose optimization technique as appropriate and may include automated exposure control or mA/KV adjustment according to patient size. FINDINGS: No intracranial hemorrhage, hydrocephalus or extra-axial fluid collection.No areas of brain edema or evidence of midline shift. The paranasal sinuses and mastoids are clear. The calvarium is intact. IMPRESSION: No acute intracranial abnormality. Physical exam: General: Oriented x3, Obese; mentation is altered Mouth: Dry Respiratory: Clear to auscultation bilaterally, Normal air movement. Currently on 3 L per nasal cannula Cardiovascular: No edema, Regular rate/rhythm, Normal S1 S2 Gastrointestinal: Normal bowel sounds, No tenderness Integumentary: Tenderness/swelling, Erythema; left lower abdomen region Neurological: Generalized weakness and no focal deficits Impression: Toxicity encephalopathy related to abdominal cellulitis, wound culture positive for Providencia stuartii Acute on chronic renal disease stage III with hyponatremia Hypertension Hyperlipidemia Bipolar disorder Diabetes mellitus type 2 COVID-19 positive Plan: Toxicity encephalopathy related to abdominal cellulitis, wound culture positive for Providencia stuartii: Medication reviewed. Will discontinue Bactrim and changed to Levaquin due to acute renal insufficiency. Continue to work with physical therapy. Patient will be getting IV fluids today. Acute on chronic renal disease stage III with hyponatremia: Patient appears dry. Renal function slightly abnormal from yesterday. We will start IV fluids. Will monitor closely. Will discuss with nephrology. Hypertension: Continue lisinopril 20 mg 1 pill twice daily Hyperlipidemia: Continue Lipitor 10 mg daily Bipolar disorder: Continue with her medication Wellbutrin 150 mg daily, Zyprexa 15 mg daily, Prozac 40 mg daily. Diabetes mellitus type 2: Continue Accu-Cheks and sliding scale. Continue NPH 20 units subcu twice daily COVID 19 positive: Continue with above plan of care. Patient on 3 L per nasal cannula. Continue to wean off oxygen. We will check ferritin and CRP. DVT prophylaxis: Heparin CODE STATUS: Full code [facility] care [id number] minutes: Awaiting approval for skilled placement. Time Spent Managing Pts Care (In Minutes): 55
[2021-05-29] MEDS: HEPARIN 5000 UNIT/ML 1 ML VIAL SQ SCH ×3 (06:25→17:55)
[2021-05-29] MEDS: INSULIN -REGULAR HUMAN 50 UNIT/0.5 ML ML SQ SCH ×4 (08:00→20:38)
[2021-05-29] MEDS: GLUCERNA SHAKE 237 ML CAN PO SCH ×2 (09:00→20:29)
[2021-05-29] MEDS: NPH (HUMAN) 100 UNITS/ML INSULIN SQ SCH ×2 (09:06→20:38)
[2021-05-29] MEDS: NA CHLORIDE 0.9% 1,000 ML IV SCH ×2 (09:22→20:31)
[2021-05-29] MEDS: levoFLOXacin 250 MG TAB PO SCH (09:22)
[2021-05-29] MEDS: FLUOXETINE 20 MG CAP PO SCH (09:23)
[2021-05-29] MEDS: lisinopriL 20 MG TAB PO SCH ×2 (09:23→20:37)
[2021-05-29] MEDS: BUPROPION HCL XL 150 MG TAB PO SCH (09:24)
[2021-05-29] MEDS: hydrOXYzine HCL 25 MG TAB PO PRN (09:24)
--- NOTE | 2021-05-29 15:41 | RAD REPORT ---
EXAM DESCRIPTION: Concepcion Single View05/29/2021 3:32 pm CLINICAL HISTORY: Shortness of breath COMPARISON: May 24, 2021 FINDINGS: Lungs are hazy. Heart is mildly to moderately enlarged IMPRESSION: The lungs are hazy. Although this all could be secondary to overlying soft tissue or a mild bilateral infiltrate is considered more likely.
[2021-05-29] MEDS: OLANZapine 10 MG TABLET PO SCH (20:30)
[2021-05-29] MEDS: ATORVASTATIN 10 MG TAB PO SCH (20:30)
--- NOTE | 2021-05-29 20:54 | P.PN ---
Date of Service: 05/29/21 Vital Signs Temp Pulse Resp BP Pulse Ox 97.9 F 84 22 H 120/60 92 05/29/21 16:00 05/29/21 20:37 05/29/21 16:00 05/29/21 20:37 05/29/21 16:00 Medications Acetaminophen (Acetaminophen 500 Mg Tab) 500 mg PO Q4HP PRN PRN Reason: Pain scale 2-4 (Mild) Atorvastatin Calcium (Atorvastatin 10 Mg Tab) 10 mg PO BEDTIME [facility] Last Admin: 05/29/21 20:30 Dose: 10 mg Documented by: Bupropion HCl (Bupropion Hcl Xl 150 Mg Tab) 150 mg PO DAILY [facility] Last Admin: 05/29/21 09:24 Dose: 150 mg Documented by: Enteral Nutritional Formula (Glucerna Shake 237 Ml Can) 237 ml PO BID [facility] Last Admin: 05/29/21 20:29 Dose: Not Given Documented by: Fluoxetine HCl (Fluoxetine 20 Mg Cap) 40 mg PO DAILY [facility] Last Admin: 05/29/21 09:23 Dose: 40 mg Documented by: Heparin Sodium (Porcine) (Heparin 5000 Unit/Ml 1 Ml Vial) 5,000 unit SQ Q8HR [facility] Last Admin: 05/29/21 17:55 Dose: 5,000 unit Documented by: Hydralazine HCl (Hydralazine Hcl 20 Mg/Ml Vial) 10 mg IV Q6HP PRN PRN Reason: Titrate to SBP (MUST DEFINE) Hydroxyzine HCl (Hydroxyzine Hcl 25 Mg Tab) 50 mg PO TIDP PRN PRN Reason: ANXIETY Last Admin: 05/29/21 09:24 Dose: 50 mg Documented by: Sodium Chloride (Ns 1000 Ml Ivbag) 1,000 mls @ 75 mls/hr IV .[id number] [facility] Last Admin: 05/29/21 20:31 Dose: 1,000 mls Documented by: Insulin Human NPH (Nph (Human) 100 Units/Ml Insulin) 20 units SQ BID [facility] Last Admin: 05/29/21 20:38 Dose: Not Given Documented by: Insulin Human Regular (Insulin -Regular Human 50 Unit/0.5 Ml Ml) 0 unit SQ ACHS [facility]; Protocol Last Admin: 05/29/21 20:38 Dose: Not Given Documented by: Levofloxacin (Levofloxacin 250 Mg Tab) 250 mg PO Q24H [facility]; Protocol Last Admin: 05/29/21 09:22 Dose: 250 mg Documented by: Lisinopril (Lisinopril 20 Mg Tab) 20 mg PO DAILY [facility] Olanzapine (Olanzapine 10 Mg Tablet) 15 mg PO BEDTIME [facility] Last Admin: 05/29/21 20:30 Dose: 15 mg Documented by: Ondansetron HCl (Ondansetron 4 Mg/2 Ml Vial) 4 mg IV Q6HP PRN PRN Reason: NAUSEA / VOMITING Last Admin: 05/28/21 23:43 Dose: 4 mg Documented by: Sodium Chloride (Flush Normal Saline 10 Ml) 10 ml IV BID [facility] Last Admin: 05/29/21 20:30 Dose: 10 ml Documented by: Microbiology Results 05/24/21 17:30 Blood - Blood Aerobic Blood Culture - Final No growth in 5 days. 05/24/21 17:30 Blood - Blood Anaerobic Blood Culture - Final No growth in 5 days. 05/24/21 17:40 Blood - Blood Aerobic Blood Culture - Final No growth in 5 days. 05/24/21 17:40 Blood - Blood Anaerobic Blood Culture - Final No growth in 5 days. 05/24/21 19:00 Wound - Left Abdomen Gram Stain - Final 05/24/21 19:00 Wound - Left Abdomen Culture & Sensitivity - Final Providencia Stuartii Assessment/ Plan: Nephrology No dyspnea No chest pain No acute events overnight Limited IH/ ROS due to AMS Vitals, medications, blood work and imaging reviewed in the chart General: Cooperative, Mild distress HEENT: Atraumatic Neck: Supple Cardiovascular: Regular rate/rhythm, Edema Gastrointestinal: Soft and benign, Non-distended Musculoskeletal: No clubbing, No contractures Integumentary: No rashes, No cyanosis, Erythema Neurological: Normal speech Blood work reviewed in the chart. Imagings Data: EXAM DESCRIPTION: RAD - Chest Single View - 05/24/2021 5:52 pm CLINICAL HISTORY: AMS COMPARISON: Chest Single View dated 05/16/2021; Chest Single View dated 05/15/2021; Chest Single View dated 05/12/2021; Chest Pa And Lat (2 Views) dated 08/26/2017 FINDINGS: Lines: None. Lungs: No evidence of edema or pneumonia. Pleural: No significant pleural effusions or pneumothorax. Cardiac: Cardiomegaly. Bones: No acute fractures. Other: IMPRESSION: No acute cardiopulmonary disease. EXAM DESCRIPTION: CT - Head Brain Wo Cont - 05/24/2021 6:07 pm CLINICAL HISTORY: MENTAL STATUS CHANGE COMPARISON: No comparisons TECHNIQUE: All CT scans are performed using dose optimization technique as appropriate and may include automated exposure control or mA/KV adjustment according to patient size. FINDINGS: No intracranial hemorrhage, hydrocephalus or extra-axial fluid collection.No areas of brain edema or evidence of midline shift. The paranasal sinuses and mastoids are clear. The calvarium is intact. IMPRESSION: No acute intracranial abnormality. Conclusions/Impression: LEOLA in the setting of hypotension -No NSAIDs -Reduce Lisinopril Hyponatremia -Encourage nutrition HTN -Reduce Lisinopril Daily LE Edema -Low sodium diet -Consider Bumex as needed DM II with hyperglycemia -RISS Moderate malnutrition -Continue Glucerna BID Polycythemia Microcytosis Iron saturation 26% -Monitor H&H Plan for SNF placement
[2021-05-30] MEDS: HEPARIN 5000 UNIT/ML 1 ML VIAL SQ SCH ×2 (00:47→09:50)
[2021-05-30 03:47] LABS: Absolute Lymphocytes (CBC) 1.1 K/uL (0.7-4.9); Hematocrit 46.5 % (36.0-45.0); Lymphocytes % 11.7 % (15.3-44.8); MPV 7.9 fL (7.6-11.3); RBC Red Blood Cell Count 5.76 M/uL (3.86-4.86)
[2021-05-30 04:07] LABS: C-Reactive Protein 46.5 mg/L (<3.00); Ferritin 474.1 ng/mL (8-388); Magnesium 1.7 mg/dL (1.8-2.4); Potassium 4.3 mmol/L (3.5-5.1)
[2021-05-30] MEDS: MAGNESIUM SULFATE 1 gm IVPB 1 GM/100 ML BAG IV ONE ×2 (04:31→04:56)
[2021-05-30] MEDS: levoFLOXacin 250 MG TAB PO SCH (06:07)
--- NOTE | 2021-05-30 06:13 | P.PN ---
Subjective Date of Service: 05/30/21 Primary Care Provider: unknown Chief Complaint: AMS Subjective: Improving Physical Examination - Vital Signs Temperature: 97.3 F Blood Pressure: 110/52 Pulse: 76 Respirations: 18 Pulse Ox (%): 94 - Studies Microbiology Data (last 24 hrs): 05/24/21 17:30 Blood - Blood Aerobic Blood Culture - Final No growth in 5 days. 05/24/21 17:30 Blood - Blood Anaerobic Blood Culture - Final No growth in 5 days. 05/24/21 17:40 Blood - Blood Aerobic Blood Culture - Final No growth in 5 days. 05/24/21 17:40 Blood - Blood Anaerobic Blood Culture - Final No growth in 5 days. Assessment & Plan Discharge Plan: Home Plan to discharge in: 24 Hours Physician Review Additional Text: COVID: positive CXR: COMPARISON: Chest Single View dated 05/16/2021; Chest Single View dated 05/15/2021; Chest Single View dated 05/12/2021; Chest Pa And Lat (2 Views) dated 08/26/2017 FINDINGS: Lines: None. Lungs: No evidence of edema or pneumonia. Pleural: No significant pleural effusions or pneumothorax. Cardiac: Cardiomegaly. Bones: No acute fractures. IMPRESSION: No acute cardiopulmonary disease. CT Scan: COMPARISON: No comparisons TECHNIQUE: All CT scans are performed using dose optimization technique as appropriate and may include automated exposure control or mA/KV adjustment according to patient size. FINDINGS: No intracranial hemorrhage, hydrocephalus or extra-axial fluid collection.No areas of brain edema or evidence of midline shift. The paranasal sinuses and mastoids are clear. The calvarium is intact. IMPRESSION: No acute intracranial abnormality. Physical exam: General: Oriented x3, Obese; mentation is altered Mouth: Dry Respiratory: Clear to auscultation bilaterally, Normal air movement. Currently on 3 L per nasal cannula Cardiovascular: No edema, Regular rate/rhythm, Normal S1 S2 Gastrointestinal: Normal bowel sounds, No tenderness Integumentary: Tenderness/swelling, Erythema; left lower abdomen region Neurological: Generalized weakness and no focal deficits Impression: Toxicity encephalopathy related to abdominal cellulitis, wound culture positive for Providencia stuartii Acute on chronic renal disease stage III with hyponatremia Hypertension Hyperlipidemia Bipolar disorder Diabetes mellitus type 2 COVID-19 positive Plan: Toxicity encephalopathy related to abdominal cellulitis, wound culture positive for Providencia stuartii: Continue Levaquin continue to work with physical therapy. Patient will be getting IV fluids today. Acute on chronic renal disease stage III with hyponatremia: Continue IV fluids. Patient appears improved. Renal function improved. Nephrology adjusted lisinopril dose. Other medication adjusted. Hypertension: Lisinopril decreased to 20 mg once daily Hyperlipidemia: Continue Lipitor 10 mg daily Bipolar disorder: Continue with her medication Wellbutrin 150 mg daily, Zyprexa 15 mg daily, Prozac 40 mg daily. Diabetes mellitus type 2: Continue Accu-Cheks and sliding scale. Continue NPH 20 units subcu twice daily COVID 19 positive: Continue with above plan of care. Patient on 3 L per nasal cannula. Continue to wean off oxygen. Continue to monitor lab DVT prophylaxis: Heparin CODE STATUS: Full code [facility] [id number] minutes: Awaiting approval for skilled placement. Time Spent Managing Pts Care (In Minutes): 55
[2021-05-30] MEDS: INSULIN -REGULAR HUMAN 50 UNIT/0.5 ML ML SQ SCH ×4 (07:30→21:04)
[2021-05-30] MEDS: GLUCERNA SHAKE 237 ML CAN PO SCH ×2 (09:00→21:00)
[2021-05-30] MEDS: NA CHLORIDE 0.9% 1,000 ML IV SCH ×2 (09:47→21:06)
[2021-05-30] MEDS: BUPROPION HCL XL 150 MG TAB PO SCH (09:47)
[2021-05-30] MEDS: NPH (HUMAN) 100 UNITS/ML INSULIN SQ SCH ×2 (09:48→21:04)
[2021-05-30] MEDS: lisinopriL 20 MG TAB PO SCH (09:48)
[2021-05-30] MEDS: FLUOXETINE 20 MG CAP PO SCH (09:48)
[2021-05-30] MEDS ORDERED: METOLAZONE 5 MG TABLET PO ONE (10:39)
[2021-05-30] MEDS ORDERED: SPIRONOLACTONE 25 MG TABLET PO ONE (10:45)
[2021-05-30] MEDS: OLANZapine 10 MG TABLET PO SCH (21:03)
[2021-05-30] MEDS: ATORVASTATIN 10 MG TAB PO SCH (21:03)
--- NOTE | 2021-05-30 21:32 | P.PN ---
Date of Service: 05/30/21 Vital Signs Temp Pulse Resp BP Pulse Ox 97.1 F 77 19 111/54 L 90 L 05/30/21 20:00 05/30/21 20:00 05/30/21 20:00 05/30/21 20:00 05/30/21 20:00 Medications Acetaminophen (Acetaminophen 500 Mg Tab) 500 mg PO Q4HP PRN PRN Reason: Pain scale 2-4 (Mild) Atorvastatin Calcium (Atorvastatin 10 Mg Tab) 10 mg PO BEDTIME [facility] Last Admin: 05/30/21 21:03 Dose: 10 mg Documented by: Bupropion HCl (Bupropion Hcl Xl 150 Mg Tab) 150 mg PO DAILY [facility] Last Admin: 05/30/21 09:47 Dose: 150 mg Documented by: Enteral Nutritional Formula (Glucerna Shake 237 Ml Can) 237 ml PO BID [facility] Last Admin: 05/30/21 09:00 Dose: Not Given Documented by: Fluoxetine HCl (Fluoxetine 20 Mg Cap) 40 mg PO DAILY [facility] Last Admin: 05/30/21 09:48 Dose: 40 mg Documented by: Heparin Sodium (Porcine) (Heparin 5000 Unit/Ml 1 Ml Vial) 5,000 unit SQ Q8HR [facility] Last Admin: 05/30/21 09:50 Dose: 5,000 unit Documented by: Hydralazine HCl (Hydralazine Hcl 20 Mg/Ml Vial) 10 mg IV Q6HP PRN PRN Reason: Titrate to SBP (MUST DEFINE) Hydroxyzine HCl (Hydroxyzine Hcl 25 Mg Tab) 50 mg PO TIDP PRN PRN Reason: ANXIETY Last Admin: 05/29/21 09:24 Dose: 50 mg Documented by: Sodium Chloride (Ns 1000 Ml Ivbag) 1,000 mls @ 75 mls/hr IV .[id number] [facility] Last Admin: 05/30/21 21:06 Dose: 1,000 mls Documented by: Insulin Human NPH (Nph (Human) 100 Units/Ml Insulin) 20 units SQ BID [facility] Last Admin: 05/30/21 21:04 Dose: 20 units Documented by: Insulin Human Regular (Insulin -Regular Human 50 Unit/0.5 Ml Ml) 0 unit SQ ACHS [facility]; Protocol Last Admin: 05/30/21 21:04 Dose: 4 unit Documented by: Levofloxacin (Levofloxacin 250 Mg Tab) 250 mg PO Q24H [facility]; Protocol Last Admin: 05/30/21 06:07 Dose: 250 mg Documented by: Lisinopril (Lisinopril 20 Mg Tab) 20 mg PO DAILY [facility] Last Admin: 05/30/21 09:48 Dose: 20 mg Documented by: Olanzapine (Olanzapine 10 Mg Tablet) 15 mg PO BEDTIME [facility] Last Admin: 05/30/21 21:03 Dose: 15 mg Documented by: Ondansetron HCl (Ondansetron 4 Mg/2 Ml Vial) 4 mg IV Q6HP PRN PRN Reason: NAUSEA / VOMITING Last Admin: 05/28/21 23:43 Dose: 4 mg Documented by: Sodium Chloride (Flush Normal Saline 10 Ml) 10 ml IV BID [facility] Last Admin: 05/30/21 09:00 Dose: Not Given Documented by: Microbiology Results 05/24/21 17:30 Blood - Blood Aerobic Blood Culture - Final No growth in 5 days. 05/24/21 17:30 Blood - Blood Anaerobic Blood Culture - Final No growth in 5 days. 05/24/21 17:40 Blood - Blood Aerobic Blood Culture - Final No growth in 5 days. 05/24/21 17:40 Blood - Blood Anaerobic Blood Culture - Final No growth in 5 days. 05/24/21 19:00 Wound - Left Abdomen Gram Stain - Final 05/24/21 19:00 Wound - Left Abdomen Culture & Sensitivity - Final Providencia Stuartii Assessment/ Plan: Nephrology Reports worsening dyspnea No chest pain No acute events overnight Limited IH/ ROS due to AMS Vitals, medications, blood work and imaging reviewed in the chart General: Cooperative, Mild distress HEENT: Atraumatic Neck: Supple Lung: Diminished Cardiovascular: Regular rate/rhythm, Edema Gastrointestinal: Soft and benign, Non-distended Musculoskeletal: No clubbing, No contractures Integumentary: No rashes, No cyanosis, Erythema Neurological: Normal speech Blood work reviewed in the chart. Imagings Data: EXAM DESCRIPTION: RAD - Chest Single View - 05/24/2021 5:52 pm CLINICAL HISTORY: AMS COMPARISON: Chest Single View dated 05/16/2021; Chest Single View dated 05/15/2021; Chest Single View dated 05/12/2021; Chest Pa And Lat (2 Views) dated 08/26/2017 FINDINGS: Lines: None. Lungs: No evidence of edema or pneumonia. Pleural: No significant pleural effusions or pneumothorax. Cardiac: Cardiomegaly. Bones: No acute fractures. Other: IMPRESSION: No acute cardiopulmonary disease. EXAM DESCRIPTION: CT - Head Brain Wo Cont - 05/24/2021 6:07 pm CLINICAL HISTORY: MENTAL STATUS CHANGE COMPARISON: No comparisons TECHNIQUE: All CT scans are performed using dose optimization technique as appropriate and may include automated exposure control or mA/KV adjustment according to patient size. FINDINGS: No intracranial hemorrhage, hydrocephalus or extra-axial fluid collection.No areas of brain edema or evidence of midline shift. The paranasal sinuses and mastoids are clear. The calvarium is intact. IMPRESSION: No acute intracranial abnormality. Conclusions/Impression: LEOLA in the setting of hypotension -No NSAIDs -Continue daily Lisinopril Hyponatremia -Encourage nutrition HTN -Continue Lisinopril Daily LE Edema -Low sodium diet -Metolazone and Spironolactone X1 DM II with hyperglycemia -RISS Moderate malnutrition -Continue Glucerna BID Polycythemia Microcytosis Iron saturation 26% -Monitor H&H Plan for SNF placement
[2021-05-31] MEDS: HEPARIN 5000 UNIT/ML 1 ML VIAL SQ SCH ×3 (01:00→17:44)
[2021-05-31 03:42] LABS: Absolute Lymphocytes (CBC) 1.1 K/uL (0.7-4.9); Hematocrit 46.8 % (36.0-45.0); MPV 7.3 fL (7.6-11.3); RBC Red Blood Cell Count 5.77 M/uL (3.86-4.86)
[2021-05-31 04:07] LABS: C-Reactive Protein 59.3 mg/L (<3.00); Magnesium 2.2 mg/dL (1.8-2.4); Potassium 4.3 mmol/L (3.5-5.1)
--- NOTE | 2021-05-31 06:04 | P.PN ---
Subjective Date of Service: 05/31/21 Primary Care Provider: unknown Chief Complaint: AMS Subjective: Improving Physical Examination - Vital Signs Temperature: 97 F Blood Pressure: 117/61 Pulse: 83 Respirations: 18 Pulse Ox (%): 93 Assessment & Plan Discharge Plan: Other (assisted facility) Plan to discharge in: 24 Hours Physician Review Additional Text: COVID: positive CXR: COMPARISON: Chest Single View dated 05/16/2021; Chest Single View dated 05/15/2021; Chest Single View dated 05/12/2021; Chest Pa And Lat (2 Views) dated 08/26/2017 FINDINGS: Lines: None. Lungs: No evidence of edema or pneumonia. Pleural: No significant pleural effusions or pneumothorax. Cardiac: Cardiomegaly. Bones: No acute fractures. IMPRESSION: No acute cardiopulmonary disease. CT Scan: COMPARISON: No comparisons TECHNIQUE: All CT scans are performed using dose optimization technique as appropriate and may include automated exposure control or mA/KV adjustment according to patient size. FINDINGS: No intracranial hemorrhage, hydrocephalus or extra-axial fluid collection.No areas of brain edema or evidence of midline shift. The paranasal sinuses and mastoids are clear. The calvarium is intact. IMPRESSION: No acute intracranial abnormality. Physical exam: General: Patient alert and cooperative. Patient in good spirit. Mouth: Dry Respiratory: Clear to auscultation bilaterally, Normal air movement. Currently on 3 L per nasal cannula Cardiovascular: No edema, Regular rate/rhythm, Normal S1 S2 Gastrointestinal: Normal bowel sounds, No tenderness Integumentary: No swelling to the lower extremities Neurological: Generalized weakness and no focal deficits Impression: Toxicity encephalopathy related to abdominal cellulitis, wound culture positive for Providencia stuartii Acute on chronic renal disease stage III with hyponatremia Hypertension Hyperlipidemia Bipolar disorder Diabetes mellitus type 2 COVID-19 positive Plan: Toxicity encephalopathy related to abdominal cellulitis, wound culture positive for Providencia stuartii: Continue Levaquin. Overall stable. Patient improved. Patient continues to work with physical therapy. We will discontinue IV fluids. Awaiting approval for skilled placement. Acute on chronic renal disease stage III with hyponatremia: Renal function appears to be at baseline. Overall improved. Discontinue IV fluids. Case discussed with nephrology. Nephrology decrease lisinopril. Overall stable. Hypertension: Doing well with lisinopril 20 mg daily Hyperlipidemia: Continue Lipitor 10 mg daily Bipolar disorder: Continue with her medication Wellbutrin 150 mg daily, Zyprexa 15 mg daily, Prozac 40 mg daily. Diabetes mellitus type 2: Continue Accu-Cheks and sliding scale. Continue NPH 20 units subcu twice daily COVID 19 positive: Continue with above plan of care. Patient on 3 L per nasal cannula. Continue to wean off oxygen. Continue to monitor lab DVT prophylaxis: Heparin CODE STATUS: Full code [facility] care minutes: Awaiting approval for skilled placement. Time Spent Managing Pts Care (In Minutes): 55
[2021-05-31] MEDS: INSULIN -REGULAR HUMAN 50 UNIT/0.5 ML ML SQ SCH ×4 (07:30→20:35)
[2021-05-31] MEDS: GLUCERNA SHAKE 237 ML CAN PO SCH ×2 (09:00→21:00)
[2021-05-31] MEDS: ONDANSETRON 4 MG/2 ML VIAL IV PRN ×2 (09:26→20:35)
[2021-05-31] MEDS: BUPROPION HCL XL 150 MG TAB PO SCH (09:26)
[2021-05-31] MEDS: lisinopriL 20 MG TAB PO SCH (09:27)
[2021-05-31] MEDS: levoFLOXacin 250 MG TAB PO SCH (09:27)
[2021-05-31] MEDS: NPH (HUMAN) 100 UNITS/ML INSULIN SQ SCH ×2 (09:28→20:34)
[2021-05-31] MEDS: FLUOXETINE 20 MG CAP PO SCH (09:28)
--- NOTE | 2021-05-31 10:26 | P.PN ---
Date of Service: 05/31/21 Vital Signs Temp Pulse Resp BP Pulse Ox 97 F 83 18 117/61 93 05/31/21 10:06 05/31/21 10:06 05/31/21 10:06 05/31/21 10:06 05/31/21 10:06 Medications Acetaminophen (Acetaminophen 500 Mg Tab) 500 mg PO Q4HP PRN PRN Reason: Pain scale 2-4 (Mild) Atorvastatin Calcium (Atorvastatin 10 Mg Tab) 10 mg PO BEDTIME [facility] Last Admin: 05/30/21 21:03 Dose: 10 mg Documented by: Bumetanide (Bumetanide 1 Mg Tablet) 0.5 mg PO DAILY [facility] Bupropion HCl (Bupropion Hcl Xl 150 Mg Tab) 150 mg PO DAILY [facility] Last Admin: 05/31/21 09:26 Dose: 150 mg Documented by: Enteral Nutritional Formula (Glucerna Shake 237 Ml Can) 237 ml PO BID [facility] Last Admin: 05/31/21 09:00 Dose: Not Given Documented by: Fluoxetine HCl (Fluoxetine 20 Mg Cap) 40 mg PO DAILY [facility] Last Admin: 05/31/21 09:28 Dose: 40 mg Documented by: Heparin Sodium (Porcine) (Heparin 5000 Unit/Ml 1 Ml Vial) 5,000 unit SQ Q8HR [facility] Last Admin: 05/31/21 09:32 Dose: 5,000 unit Documented by: Hydralazine HCl (Hydralazine Hcl 20 Mg/Ml Vial) 10 mg IV Q6HP PRN PRN Reason: Titrate to SBP (MUST DEFINE) Hydroxyzine HCl (Hydroxyzine Hcl 25 Mg Tab) 50 mg PO TIDP PRN PRN Reason: ANXIETY Last Admin: 05/29/21 09:24 Dose: 50 mg Documented by: Insulin Human NPH (Nph (Human) 100 Units/Ml Insulin) 20 units SQ BID [facility] Last Admin: 05/31/21 09:28 Dose: 20 units Documented by: Insulin Human Regular (Insulin -Regular Human 50 Unit/0.5 Ml Ml) 0 unit SQ [facility]; Protocol Last Admin: 05/31/21 07:30 Dose: Not Given Documented by: Levofloxacin (Levofloxacin 250 Mg Tab) 250 mg PO Q24H [facility]; Protocol Last Admin: 05/31/21 09:27 Dose: 250 mg Documented by: Lisinopril (Lisinopril 20 Mg Tab) 20 mg PO DAILY [facility] Last Admin: 05/31/21 09:27 Dose: 20 mg Documented by: Olanzapine (Olanzapine 10 Mg Tablet) 15 mg PO BEDTIME [facility] Last Admin: 05/30/21 21:03 Dose: 15 mg Documented by: Ondansetron HCl (Ondansetron 4 Mg/2 Ml Vial) 4 mg IV Q6HP PRN PRN Reason: NAUSEA / VOMITING Last Admin: 05/31/21 09:26 Dose: 4 mg Documented by: Sodium Chloride (Flush Normal Saline 10 Ml) 10 ml IV BID [facility] Last Admin: 05/31/21 09:00 Dose: 10 ml Documented by: Spironolactone (Spironolactone 25 Mg Tablet) 25 mg PO DAILY [facility] Microbiology Results 05/24/21 17:30 Blood - Blood Aerobic Blood Culture - Final No growth in 5 days. 05/24/21 17:30 Blood - Blood Anaerobic Blood Culture - Final No growth in 5 days. 05/24/21 17:40 Blood - Blood Aerobic Blood Culture - Final No growth in 5 days. 05/24/21 17:40 Blood - Blood Anaerobic Blood Culture - Final No growth in 5 days. 05/24/21 19:00 Wound - Left Abdomen Gram Stain - Final 05/24/21 19:00 Wound - Left Abdomen Culture & Sensitivity - Final Providencia Stuartii Assessment/ Plan: Nephrology No dyspnea No chest pain No acute events overnight Vitals, medications, blood work and imaging reviewed in the chart General: Cooperative, Obese HEENT: Atraumatic Neck: Supple Lung: Diminished Cardiovascular: Regular rate/rhythm, Edema Gastrointestinal: Soft and benign, Non-distended Musculoskeletal: No clubbing, No contractures Integumentary: No rashes, No cyanosis, Erythema Neurological: Normal speech Blood work reviewed in the chart. Imagings Data: EXAM DESCRIPTION: RAD - Chest Single View - 05/24/2021 5:52 pm CLINICAL HISTORY: AMS COMPARISON: Chest Single View dated 05/16/2021; Chest Single View dated 05/15/2021; Chest Single View dated 05/12/2021; Chest Pa And Lat (2 Views) dated 08/26/2017 FINDINGS: Lines: None. Lungs: No evidence of edema or pneumonia. Pleural: No significant pleural effusions or pneumothorax. Cardiac: Cardiomegaly. Bones: No acute fractures. Other: IMPRESSION: No acute cardiopulmonary disease. EXAM DESCRIPTION: CT - Head Brain Wo Cont - 05/24/2021 6:07 pm CLINICAL HISTORY: MENTAL STATUS CHANGE COMPARISON: No comparisons TECHNIQUE: All CT scans are performed using dose optimization technique as appropriate and may include automated exposure control or mA/KV adjustment according to patient size. FINDINGS: No intracranial hemorrhage, hydrocephalus or extra-axial fluid collection.No areas of brain edema or evidence of midline shift. The paranasal sinuses and mastoids are clear. The calvarium is intact. IMPRESSION: No acute intracranial abnormality. Conclusions/Impression: LEOLA in the setting of hypotension -No NSAIDs -Continue daily Lisinopril Hyponatremia -Encourage nutrition HTN -Continue Lisinopril Daily LE Edema -Low sodium diet -Start daily Bumex & Spironolactone DM II with hyperglycemia -RISS Moderate malnutrition -Continue Glucerna BID Polycythemia Microcytosis Iron saturation 26% -Monitor H&H Plan for SNF placement
[2021-05-31] MEDS: SPIRONOLACTONE 25 MG TABLET PO SCH (12:39)
[2021-05-31] MEDS: BUMETANIDE 1 MG TABLET PO SCH (12:39)
[2021-05-31] MEDS: ATORVASTATIN 10 MG TAB PO SCH (20:35)
[2021-05-31] MEDS: OLANZapine 10 MG TABLET PO SCH (22:12)
[2021-06-01] MEDS: HEPARIN 5000 UNIT/ML 1 ML VIAL SQ SCH ×4 (00:49→17:00)
--- NOTE | 2021-06-01 06:05 | P.PN ---
Subjective Date of Service: 06/01/21 Primary Care Provider: unknown Chief Complaint: AMS Subjective: Other (Patient reports that she is doing well. Her oxygen tubing was kinked last night. This was repaired. Currently on 6 L per nasal cannula.) Physical Examination - Vital Signs Temperature: 96.9 F Blood Pressure: 110/71 Pulse: 82 Respirations: 19 Pulse Ox (%): 92 Assessment & Plan Discharge Plan: Other (custodial facility) Plan to discharge in: 24 Hours Physician Review Additional Text: COVID: positive CXR: COMPARISON: Chest Single View dated 05/16/2021; Chest Single View dated 05/15/2021; Chest Single View dated 05/12/2021; Chest Pa And Lat (2 Views) dated 08/26/2017 FINDINGS: Lines: None. Lungs: No evidence of edema or pneumonia. Pleural: No significant pleural effusions or pneumothorax. Cardiac: Cardiomegaly. Bones: No acute fractures. IMPRESSION: No acute cardiopulmonary disease. CT Scan: COMPARISON: No comparisons TECHNIQUE: All CT scans are performed using dose optimization technique as appropriate and may include automated exposure control or mA/KV adjustment according to patient size. FINDINGS: No intracranial hemorrhage, hydrocephalus or extra-axial fluid collection.No areas of brain edema or evidence of midline shift. The paranasal sinuses and mastoids are clear. The calvarium is intact. IMPRESSION: No acute intracranial abnormality. Physical exam: General: Patient alert and cooperative. Patient in good spirit. Mouth: Dry Respiratory: Clear to auscultation bilaterally, Normal air movement. Currently on 6 L per nasal cannula Cardiovascular: No edema, Regular rate/rhythm, Normal S1 S2 Gastrointestinal: Normal bowel sounds, No tenderness Integumentary: No swelling to the lower extremities Neurological: Generalized weakness and no focal deficits Impression: Toxicity encephalopathy related to abdominal cellulitis, wound culture positive for Providencia stuartii Acute on chronic renal disease stage III with hyponatremia Hypertension Hyperlipidemia Bipolar disorder Diabetes mellitus type 2 COVID-19 positive Plan: Toxicity encephalopathy related to abdominal cellulitis, wound culture positive for Providencia stuartii: Patient currently on Levaquin. Overall improved. Patient may continue with Levaquin for 2 more days. Continue physical therapy. Awaiting skilled placement approval. This should occur within the next 24 to 48 hours. Will discuss with director social welfare. Patient will need to be less than 4 L per nasal cannula before discharge. I will turn the service over to the hospitalist team tomorrow. I will go plan of care with him. Acute on chronic renal disease stage III with hyponatremia: Renal function stable. Nephrology has decreased lisinopril with improvement in her renal function. Patient remains on Bumex 0.5 mg daily and Aldactone 25 mg daily. Hypertension: Doing well with lisinopril 20 mg daily Hyperlipidemia: Continue Lipitor 10 mg daily Bipolar disorder: Continue with her medication Wellbutrin 150 mg daily, Zyprexa 15 mg daily, Prozac 40 mg daily. Diabetes mellitus type 2: Continue Accu-Cheks and sliding scale. Continue NPH 20 units subcu twice daily COVID 19 positive: Continue with above plan of care. Patient on 6 L. Continue to wean down to maintain sats above 93%. Anticipate improvement today. Can be discharged to skilled facility once oxygen less than 4 L per nasal cannula. DVT prophylaxis: Heparin CODE STATUS: Full code [facility] care [id number] minutes: Awaiting approval for skilled placement. Time Spent Managing Pts Care (In Minutes): 55
[2021-06-01] MEDS: levoFLOXacin 250 MG TAB PO SCH (06:15)
[2021-06-01 06:25] LABS: Absolute Lymphocytes (CBC) 1.5 K/uL (0.7-4.9); MPV 7.8 fL (7.6-11.3); RBC Red Blood Cell Count 5.82 M/uL (3.86-4.86)
[2021-06-01] MEDS: ONDANSETRON 4 MG/2 ML VIAL IV PRN ×2 (06:25→20:54)
[2021-06-01 06:53] LABS: C-Reactive Protein 70.2 mg/L (<3.00); Ferritin 593.5 ng/mL (8-388); Magnesium 2.3 mg/dL (1.8-2.4); Potassium 4.6 mmol/L (3.5-5.1); Uric Acid 7.1 mg/dL (2.6-6.0)
[2021-06-01] MEDS: INSULIN -REGULAR HUMAN 50 UNIT/0.5 ML ML SQ SCH ×4 (07:30→20:51)
[2021-06-01] MEDS: GLUCERNA SHAKE 237 ML CAN PO SCH ×2 (08:29→20:52)
[2021-06-01] MEDS: NPH (HUMAN) 100 UNITS/ML INSULIN SQ SCH ×2 (08:30→20:51)
[2021-06-01] MEDS: BUPROPION HCL XL 150 MG TAB PO SCH (08:30)
[2021-06-01] MEDS: FLUOXETINE 20 MG CAP PO SCH (08:31)
[2021-06-01] MEDS: SPIRONOLACTONE 25 MG TABLET PO SCH (08:31)
[2021-06-01] MEDS: BUMETANIDE 1 MG TABLET PO SCH (08:32)
[2021-06-01] MEDS: lisinopriL 20 MG TAB PO SCH (08:33)
--- NOTE | 2021-06-01 20:20 | P.PN ---
Date of Service: 06/01/21 Vital Signs Temp Pulse Resp BP Pulse Ox 97.3 F 79 20 114/85 95 06/01/21 16:00 06/01/21 16:00 06/01/21 16:00 06/01/21 16:00 06/01/21 16:00 Medications Acetaminophen (Acetaminophen 500 Mg Tab) 500 mg PO Q4HP PRN PRN Reason: Pain scale 2-4 (Mild) Atorvastatin Calcium (Atorvastatin 10 Mg Tab) 10 mg PO BEDTIME [facility] Last Admin: 05/31/21 20:35 Dose: 10 mg Documented by: Bumetanide (Bumetanide 1 Mg Tablet) 0.5 mg PO DAILY [facility] Last Admin: 06/01/21 08:32 Dose: 0.5 mg Documented by: Bupropion HCl (Bupropion Hcl Xl 150 Mg Tab) 150 mg PO DAILY [facility] Last Admin: 06/01/21 08:30 Dose: 150 mg Documented by: Enteral Nutritional Formula (Glucerna Shake 237 Ml Can) 237 ml PO BID [facility] Last Admin: 06/01/21 08:29 Dose: 237 ml Documented by: Fluoxetine HCl (Fluoxetine 20 Mg Cap) 40 mg PO DAILY [facility] Last Admin: 06/01/21 08:31 Dose: 40 mg Documented by: Heparin Sodium (Porcine) (Heparin 5000 Unit/Ml 1 Ml Vial) 5,000 unit SQ Q8HR [facility] Last Admin: 06/01/21 16:28 Dose: 5,000 unit Documented by: Hydralazine HCl (Hydralazine Hcl 20 Mg/Ml Vial) 10 mg IV Q6HP PRN PRN Reason: Titrate to SBP (MUST DEFINE) Hydroxyzine HCl (Hydroxyzine Hcl 25 Mg Tab) 50 mg PO TIDP PRN PRN Reason: ANXIETY Last Admin: 05/29/21 09:24 Dose: 50 mg Documented by: Insulin Human NPH (Nph (Human) 100 Units/Ml Insulin) 20 units SQ BID [facility] Last Admin: 06/01/21 08:30 Dose: 20 units Documented by: Insulin Human Regular (Insulin -Regular Human 50 Unit/0.5 Ml Ml) 0 unit SQ ACHS [facility]; Protocol Last Admin: 06/01/21 16:28 Dose: 4 unit Documented by: Levofloxacin (Levofloxacin 250 Mg Tab) 250 mg PO Q24H [facility]; Protocol Last Admin: 06/01/21 06:15 Dose: 250 mg Documented by: Lisinopril (Lisinopril 20 Mg Tab) 20 mg PO DAILY [facility] Last Admin: 06/01/21 08:33 Dose: Not Given Documented by: Olanzapine (Olanzapine 10 Mg Tablet) 15 mg PO BEDTIME [facility] Last Admin: 05/31/21 22:12 Dose: 15 mg Documented by: Ondansetron HCl (Ondansetron 4 Mg/2 Ml Vial) 4 mg IV Q6HP PRN PRN Reason: NAUSEA / VOMITING Last Admin: 06/01/21 06:25 Dose: 4 mg Documented by: Sodium Chloride (Flush Normal Saline 10 Ml) 10 ml IV BID [facility] Last Admin: 06/01/21 08:30 Dose: 10 ml Documented by: Spironolactone (Spironolactone 25 Mg Tablet) 25 mg PO DAILY [facility] Last Admin: 06/01/21 08:31 Dose: 25 mg Documented by: Microbiology Results 05/24/21 17:30 Blood - Blood Aerobic Blood Culture - Final No growth in 5 days. 05/24/21 17:30 Blood - Blood Anaerobic Blood Culture - Final No growth in 5 days. 05/24/21 17:40 Blood - Blood Aerobic Blood Culture - Final No growth in 5 days. 05/24/21 17:40 Blood - Blood Anaerobic Blood Culture - Final No growth in 5 days. 05/24/21 19:00 Wound - Left Abdomen Gram Stain - Final 05/24/21 19:00 Wound - Left Abdomen Culture & Sensitivity - Final Providencia Stuartii Assessment/ Plan: Nephrology No dyspnea No chest pain Nausea No acute events overnight Vitals, medications, blood work and imaging reviewed in the chart General: Cooperative, Obese HEENT: Atraumatic Neck: Supple Lung: Normal respiratory effort Cardiovascular: Regular rate/rhythm, Edema Gastrointestinal: Soft and benign, Non-distended Musculoskeletal: No clubbing, No contractures Integumentary: No rashes, No cyanosis, Erythema Neurological: Normal speech Blood work reviewed in the chart. Imagings Data: EXAM DESCRIPTION: RAD - Chest Single View - 05/24/2021 5:52 pm CLINICAL HISTORY: AMS COMPARISON: Chest Single View dated 05/16/2021; Chest Single View dated 05/15/2021; Chest Single View dated 05/12/2021; Chest Pa And Lat (2 Views) dated 08/26/2017 FINDINGS: Lines: None. Lungs: No evidence of edema or pneumonia. Pleural: No significant pleural effusions or pneumothorax. Cardiac: Cardiomegaly. Bones: No acute fractures. Other: IMPRESSION: No acute cardiopulmonary disease. EXAM DESCRIPTION: CT - Head Brain Wo Cont - 05/24/2021 6:07 pm CLINICAL HISTORY: MENTAL STATUS CHANGE COMPARISON: No comparisons TECHNIQUE: All CT scans are performed using dose optimization technique as appropriate and may include automated exposure control or mA/KV adjustment according to patient size. FINDINGS: No intracranial hemorrhage, hydrocephalus or extra-axial fluid collection.No areas of brain edema or evidence of midline shift. The paranasal sinuses and mastoids are clear. The calvarium is intact. IMPRESSION: No acute intracranial abnormality. Conclusions/Impression: LEOLA in the setting of hypotension -No NSAIDs -Continue daily Lisinopril Hyponatremia -Encourage nutrition HTN -Continue daily Lisinopril LE Edema -Low sodium diet -Continue Bumex & Spironolactone DM II with hyperglycemia -RISS Moderate malnutrition -Continue Glucerna BID Polycythemia Microcytosis Iron saturation 26% -Monitor H&H Plan for SNF placement. Case reviewed with Dr. Mejia
[2021-06-01] MEDS: OLANZapine 10 MG TABLET PO SCH (20:50)
[2021-06-01] MEDS: ATORVASTATIN 10 MG TAB PO SCH (20:50)
[2021-06-02] MEDS: HEPARIN 5000 UNIT/ML 1 ML VIAL SQ SCH ×3 (01:39→18:00)
[2021-06-02] MEDS: levoFLOXacin 250 MG TAB PO SCH (06:11)
[2021-06-02] MEDS: GLUCERNA SHAKE 237 ML CAN PO SCH ×2 (09:00→20:48)
[2021-06-02] MEDS: NPH (HUMAN) 100 UNITS/ML INSULIN SQ SCH ×2 (09:38→20:48)
[2021-06-02] MEDS: INSULIN -REGULAR HUMAN 50 UNIT/0.5 ML ML SQ SCH ×4 (09:38→20:49)
[2021-06-02] MEDS: ONDANSETRON 4 MG/2 ML VIAL IV PRN (09:39)
[2021-06-02] MEDS: SPIRONOLACTONE 25 MG TABLET PO SCH (09:39)
[2021-06-02] MEDS: hydrOXYzine HCL 25 MG TAB PO PRN (09:39)
[2021-06-02] MEDS: lisinopriL 20 MG TAB PO SCH (09:40)
[2021-06-02] MEDS: FLUOXETINE 20 MG CAP PO SCH (09:41)
[2021-06-02] MEDS: BUMETANIDE 1 MG TABLET PO SCH (09:41)
[2021-06-02] MEDS: BUPROPION HCL XL 150 MG TAB PO SCH (09:42)
--- NOTE | 2021-06-02 11:27 | P.PN ---
Subjective Date of Service: 06/02/21 Primary Care Provider: unknown Chief Complaint: AMS Subjective: No new changes (Complaining of cough with chest congestion Still abdominal distention) Physical Examination - Vital Signs Temperature: 97.0 F Blood Pressure: 134/80 Pulse: 86 Respirations: 22 Pulse Ox (%): 96 Assessment And Plan Physician Review Additional Text: COVID: positive CXR: COMPARISON: Chest Single View dated 05/16/2021; Chest Single View dated 05/15/2021; Chest Single View dated 05/12/2021; Chest Pa And Lat (2 Views) dated 08/26/2017 FINDINGS: Lines: None. Lungs: No evidence of edema or pneumonia. Pleural: No significant pleural effusions or pneumothorax. Cardiac: Cardiomegaly. Bones: No acute fractures. IMPRESSION: No acute cardiopulmonary disease. CT Scan: COMPARISON: No comparisons TECHNIQUE: All CT scans are performed using dose optimization technique as appropriate and may include automated exposure control or mA/KV adjustment according to patient size. FINDINGS: No intracranial hemorrhage, hydrocephalus or extra-axial fluid collection.No areas of brain edema or evidence of midline shift. The paranasal sinuses and mastoids are clear. The calvarium is intact. IMPRESSION: No acute intracranial abnormality. Physical exam: General: Patient alert and cooperative. Obese, on 3 L nasal cannulaweaning down Mouth: Dry Respiratory: Mild by lateral congestive changes, Normal air movement. Cardiovascular: No edema, Regular rate/rhythm, Normal S1 S2 Gastrointestinal: Normal bowel sounds, No tenderness Integumentary: No swelling to the lower extremities Neurological: Generalized weakness and no focal deficits Impression: Toxicity encephalopathy related to abdominal cellulitis, wound culture positive for Providencia stuartii Acute on chronic renal disease stage III with hyponatremia Hypertension Hyperlipidemia Bipolar disorder Diabetes mellitus type 2 COVID-19 positive Plan: Toxicity encephalopathy related to abdominal cellulitis, wound culture positive for Providencia stuartii: -Continue on Levaquin antibioticsplan to stop course in a.m. Awaiting correction facility placement, follow-up with social media strategist Continue to wean down O2, awaiting target of less than 4 L for plan for discharge to facility Acute on chronic renal disease stage III with hyponatremia: Follow-up pending labs today Previous renal function stable. Nephrology has decreased lisinopril with improvement in her renal function. Patient remains on Bumex 0.5 mg daily and Aldactone 25 mg daily. Hypertension: Doing well with lisinopril 20 mg daily Hyperlipidemia: Continue Lipitor 10 mg daily Bipolar disorder: Continue with her medication Wellbutrin 150 mg daily, Zyprexa 15 mg daily, Prozac 40 mg daily. Diabetes mellitus type 2: Continue Accu-Cheks and sliding scale. Continue NPH 20 units subcu twice daily COVID 19 positive: Weaning down,. Continue to wean down to maintain sats above 93%. Anticipate improvement today. Can be discharged to skilled facility once oxygen less than 4 L per nasal cannula. DVT prophylaxis: Heparin CODE STATUS: Full code [facility] [id number] minutes: Awaiting approval for skilled placement.
--- NOTE | 2021-06-02 11:39 | PN ---
Date of Progress Note: 06/02/2021 Subjective: The patient is seen in Room [address] [facility]. The patient is a lert, awake and able to answer questions. She states that her breathing is somewhat better now. She had a good response to Bumex, which was just recently started. She states she had good urine output yesterday. She does get incontinent a little bit, but her breathing has somewhat improved after hugo ing the Bumex. She has good blood pressures right now. She is still struggling to get a good comfor table breath and she has to take some deep breaths at times, but O2 sats are 96% range and she is req uiring only a little bit of oxygen with about 2-3 L, currently on about 2 L. She does state that she did have some congestion this morning. She did feel an improvement after getting Bumex yesterday, b ut the breathing is improved currently on my exam and currently the patient feels little bit better. Objective: Vital Signs: Blood pressure 134/80, last pulse was about 80 and regular on my exam, rosalie thing at about 14-16, O2 sats are about 96% on 2 L nasal cannula. Lungs: Reveal crackles, wheezing that do improve with cough. Abdomen: Soft. Extremities: Reveal positive 2 edema bilaterally. Heart: Sounds are regular. Laboratory Data: Reviewed. Labs show WBC of 10.6, hemoglobin 14.9, hematocrit 47, platelet count of 127. Chemistries are still pending. The patient is a tough stick and states that the nurses have b een trying to get some blood from her this morning, earlier attempts were unsuccessful. Her fingerst ick glucose was 191. Assessment And Plan: The patient with acute kidney injury that has been improving. Her creatinine w as 1.84 on May 29 when it peaked. It has since then been coming down to 1.25 as of yesterday. The patient does not seem to be significantly volume overloaded, but does have edema and did improve significantly yesterday after taking Bumex. We will go ahead and give another dose of Bumex 1 mg. Continue spironolactone. Continue Bumex. Continue to monitor electrolytes and blood counts as the p atient can tolerate blood draws. We will continue to treat for COVID and oxygen supplement to keep O 2 sats above 92%. The patient's condition is still guarded, but somewhat improved. In summary, Bume x dose in addition to her diuretics dose today. Monitor electrolytes, salt restriction, and oxygen t o keep O2 sats above 92. /ALONSO Voice ID: [id number] Report ID: [id number]
[2021-06-02] MEDS: ATORVASTATIN 10 MG TAB PO SCH (20:19)
[2021-06-02] MEDS: OLANZapine 10 MG TABLET PO SCH (20:20)
[2021-06-02] MEDS: NA CHLORIDE 0.9% 250 ML IV PRN ×2 (20:22→20:53)
[2021-06-02 21:01] LABS: Absolute Lymphocytes (CBC) 1.3 K/uL (0.7-4.9); Hematocrit 44.6 % (36.0-45.0); Lymphocytes % 12.2 % (15.3-44.8); RBC Red Blood Cell Count 5.56 M/uL (3.86-4.86)
[2021-06-02 21:18] LABS: Potassium 4.7 mmol/L (3.5-5.1)
[2021-06-03] MEDS: HEPARIN 5000 UNIT/ML 1 ML VIAL SQ SCH ×3 (00:44→17:47)
[2021-06-03 03:29] LABS: Absolute Lymphocytes (CBC) 1.4 K/uL (0.7-4.9); Hematocrit 44.2 % (36.0-45.0); Lymphocytes % 13.2 % (15.3-44.8); MPV 8.2 fL (7.6-11.3); RBC Red Blood Cell Count 5.48 M/uL (3.86-4.86)
[2021-06-03 03:47] LABS: Albumin 2.2 g/dL (3.4-5.0); Bilirubin Total 0.9 mg/dL (0.2-1.0); Potassium 5.2 mmol/L (3.5-5.1); Protein, Total 6.2 g/dL (6.4-8.2)
[2021-06-03] MEDS: levoFLOXacin 250 MG TAB PO SCH (06:09)
[2021-06-03] MEDS ORDERED: lisinopriL 20 MG TAB PO SCH (08:45)
[2021-06-03] MEDS: GLUCERNA SHAKE 237 ML CAN PO SCH ×2 (09:00→21:00)
[2021-06-03] MEDS: ONDANSETRON 4 MG/2 ML VIAL IV PRN ×2 (09:08→15:54)
[2021-06-03] MEDS: NPH (HUMAN) 100 UNITS/ML INSULIN SQ SCH ×2 (09:09→21:00)
[2021-06-03] MEDS: FLUOXETINE 20 MG CAP PO SCH (09:10)
[2021-06-03] MEDS: INSULIN -REGULAR HUMAN 50 UNIT/0.5 ML ML SQ SCH ×4 (09:11→21:00)
[2021-06-03] MEDS: BUPROPION HCL XL 150 MG TAB PO SCH (09:12)
[2021-06-03 09:14] LABS: Potassium 5.1 mmol/L (3.5-5.1)
[2021-06-03] MEDS: NA CHLORIDE 0.9% 250 ML IV PRN (09:33)
--- NOTE | 2021-06-03 09:53 | P.PN ---
Subjective Date of Service: 06/03/21 Primary Care Provider: unknown Chief Complaint: AMS Subjective: No new changes, C/O voiced (States she still has recurrent vomiting) Physical Examination - Vital Signs Temperature: 97 F Blood Pressure: 84/42 Pulse: 86 Respirations: 26 Pulse Ox (%): 91 Assessment And Plan Physician Review: Patient Assessed, Agree with Above Assessment and Plan Physician Review Additional Text: COVID: positive CXR: COMPARISON: Chest Single View dated 05/16/2021; Chest Single View dated 05/15/2021; Chest Single View dated 05/12/2021; Chest Pa And Lat (2 Views) dated 08/26/2017 FINDINGS: Lines: None. Lungs: No evidence of edema or pneumonia. Pleural: No significant pleural effusions or pneumothorax. Cardiac: Cardiomegaly. Bones: No acute fractures. IMPRESSION: No acute cardiopulmonary disease. CT Scan: COMPARISON: No comparisons TECHNIQUE: All CT scans are performed using dose optimization technique as appropriate and may include automated exposure control or mA/KV adjustment according to patient size. FINDINGS: No intracranial hemorrhage, hydrocephalus or extra-axial fluid collection.No areas of brain edema or evidence of midline shift. The paranasal sinuses and mastoids are clear. The calvarium is intact. IMPRESSION: No acute intracranial abnormality. Physical exam: General: Patient alert and cooperative. Obese, on 3 L nasal cannulaweaning down Mouth: Dry Respiratory: Mild by lateral congestive changes, Normal air movement. Cardiovascular: No edema, Regular rate/rhythm, Normal S1 S2 Gastrointestinal: Normal bowel sounds, No tenderness Integumentary: No swelling to the lower extremities Neurological: Generalized weakness and no focal deficits Impression: Toxicity encephalopathy related to abdominal cellulitis, wound culture positive for Providencia stuartii Acute on chronic renal disease stage III Hyponatremia Hypotension Hyperlipidemia Acute CHF exacerbation Bipolar disorder Diabetes mellitus type 2 COVID-19 positive Plan: Toxicity encephalopathy related to abdominal cellulitis, wound culture positive for Providencia stuartii: Resolved encephalopathy Continue to wean down O2 Continue diuretics -Continue on Levaquin antibioticsplan to complete course today Awaiting half-way facility placement, follow-up with social science manager -Continue to wean down O2, now at target of less than 4 L for plan for discharge to facility Hypotensionunclear etiology, adjust diuretics as noted although still clinically fluid overloaded We will add low-dose midodrine Will obtain CT of the abdomen to rule out any intra-abdominal pathology Acute on chronic renal disease stage III with hyponatremia: Creatinine worsening to 1.79 Serum sodium trending down to 122 Will DC spironolactone Continue Bumexswitch to IV since worsening pulmonary congestion on chest x-ray as well as rising BNP Free water restriction to less than 1.2 L/day Optimize blood pressure Might need discontinuation of SSRIs Obtain urine studies for free water clearance calculation Being followed by nephrology team Hypertension: Now hypotensive, DC lisinopril Hyperlipidemia: Continue Lipitor 10 mg daily Bipolar disorder: Continue with her medication Wellbutrin 150 mg daily, Zyprexa 15 mg daily, Prozac 40 mg daily. Diabetes mellitus type 2: Continue Accu-Cheks and sliding scale. Continue NPH 20 units subcu twice daily COVID 19 positive: Weaning down,. Continue to wean down to maintain sats above 93%. Can be discharged to skilled facility once oxygen less than 4 L per nasal cannula with resolve hypotension DVT prophylaxis: Heparin CODE STATUS: Full code [facility] [email or web address] minutes: Awaiting approval for skilled placement.
--- NOTE | 2021-06-03 10:08 | RAD REPORT ---
EXAM DESCRIPTION: RAD - Chest Single View - 06/03/2021 8:54 am CLINICAL HISTORY: covid bronchitis COMPARISON: Chest Single View dated 05/29/2021; Chest Single View dated 05/24/2021; Chest Single View dated 05/16/2021; Chest Single View dated 05/15/2021 FINDINGS: Lines: None. Lungs: No consolidative airspace disease. No definite edema. Pleural: No significant pleural effusions or pneumothorax. Cardiac: Cardiomegaly. Bones: No acute fractures. Other: IMPRESSION: No acute cardiopulmonary disease.
[2021-06-03] MEDS ORDERED: BUMETANIDE 1 MG TABLET PO ONE (11:30)
[2021-06-03] MEDS: SODIUM CHLORIDE 1 GM TAB PO SCH ×2 (12:32→17:00)
[2021-06-03] MEDS: MIDODRINE HCL 5 MG TABLET PO SCH ×2 (14:14→21:06)
--- NOTE | 2021-06-03 19:35 | RAD REPORT ---
EXAM DESCRIPTION: CTAbdomen Pelvis Wo Contrast - 06/03/2021 7:06 pm CLINICAL HISTORY: abdominal pain , vomiting , hypotension COMPARISON: No comparisons TECHNIQUE: CT of the abdomen and pelvis was performed. All CT scans are performed using dose optimization technique as appropriate and may include automated exposure control or mA/KV adjustment according to patient size. FINDINGS: Lower chest: Small hiatal hernia Liver: No acute abnormality or suspicious lesions. Biliary: No biliary ductal dilatation. Stomach: No significant focal abnormality. Duodenum: No significant focal abnormality. Pancreas: No significant abnormality. Spleen: No significant abnormality. Adrenal: No suspicious lesions. Kidney/ureter: No hydronephrosis. No renal calculi. Bilateral collecting system fullness. Retroperitoneum: No retroperitoneal adenopathy. Vascular: No aneurysm. Bowel: Diverticulosis without diverticulitis. Peritoneum: No ascites or free air. Mild body wall edema. Bladder: Moderately distended bladder. Reproductive: No adnexal masses. Bones: No acute fracture. Other: n/a IMPRESSION: No acute intra-abdominal or pelvic finding. Distended bladder. Correlate for urinary ret ention. Small hiatal hernia.
[2021-06-03] MEDS: OLANZapine 10 MG TABLET PO SCH (21:06)
[2021-06-03] MEDS: ATORVASTATIN 10 MG TAB PO SCH (21:06)
[2021-06-04] MEDS: HEPARIN 5000 UNIT/ML 1 ML VIAL SQ SCH ×3 (00:04→18:08)
[2021-06-04] MEDS: ONDANSETRON 4 MG/2 ML VIAL IV PRN ×2 (00:05→10:12)
[2021-06-04 05:14] LABS: Absolute Lymphocytes (CBC) 1.1 K/uL (0.7-4.9); Hematocrit 43.5 % (36.0-45.0); Lymphocytes % 10.2 % (15.3-44.8); MPV 8.7 fL (7.6-11.3); RBC Red Blood Cell Count 5.41 M/uL (3.86-4.86)
[2021-06-04 05:23] LABS: Albumin 2.3 g/dL (3.4-5.0); Bilirubin Total 0.9 mg/dL (0.2-1.0); Potassium 5.2 mmol/L (3.5-5.1); Protein, Total 6.3 g/dL (6.4-8.2)
[2021-06-04] MEDS: INSULIN -REGULAR HUMAN 50 UNIT/0.5 ML ML SQ SCH ×4 (07:30→20:59)
[2021-06-04] MEDS: levoFLOXacin 250 MG TAB PO SCH (07:55)
[2021-06-04] MEDS: MIDODRINE HCL 5 MG TABLET PO SCH ×3 (08:36→20:57)
[2021-06-04] MEDS: FLUOXETINE 20 MG CAP PO SCH (08:36)
[2021-06-04] MEDS: BUPROPION HCL XL 150 MG TAB PO SCH (08:38)
[2021-06-04] MEDS: NPH (HUMAN) 100 UNITS/ML INSULIN SQ SCH ×2 (08:39→20:58)
[2021-06-04] MEDS: GLUCERNA SHAKE 237 ML CAN PO SCH ×2 (08:40→21:00)
[2021-06-04] MEDS ORDERED: ALBUMIN HUMAN 25% 100 ML IV ONE (10:13)
--- NOTE | 2021-06-04 10:15 | P.PN ---
Date of Service: 06/04/21 Subjective Patient w/ significantly worsening renal function Physical Examination - Physical Exam General: Oriented x3, Obese; mentation is altered Respiratory: Clear to auscultation bilaterally, Normal air movement Cardiovascular: No edema, Regular rate/rhythm, Normal S1 S2 Gastrointestinal: Normal bowel sounds, No tenderness Integumentary: Tenderness/swelling, Erythema; left lower abdomen region Neurological: Generalized weakness and no focal deficits Assessment and Plan - Problems (Diagnosis) (1) Bipolar disorder Current Visit: Yes Status: Chronic Qualifiers: Active/Remission status: remission status unspecified Qualified Code(s): F31.9 - Bipolar disorder, unspecified (2) Hyponatremia with acute kidney injury Current Visit: Yes Status: Acute (3) AMS (altered mental status) Current Visit: Yes Status: Acute Qualifiers: Altered mental status type: unspecified Qualified Code(s): R41.82 - Altered mental status, unspecified (4) Cellulitis Current Visit: Yes Status: Acute Qualifiers: Site of cellulitis: trunk Site of cellulitis of trunk: groin Qualified Code(s): L03.314 - Cellulitis of groin (5) HLD (hyperlipidemia) Current Visit: No Status: Chronic Qualifiers: Hyperlipidemia type: unspecified Qualified Code(s): E78.5 - Hyperlipidemia, unspecified (6) HTN (hypertension) Current Visit: No Status: Chronic Qualifiers: Hypertension type: primary hypertension Qualified Code(s): I10 - Essential (primary) hypertension (7) T2DM (type 2 diabetes mellitus) Current Visit: No Status: Chronic Qualifiers: 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
[2021-06-04] MEDS: NA CHLORIDE 0.9% 1,000 ML IV SCH (12:07)
[2021-06-04] MEDS: ATORVASTATIN 10 MG TAB PO SCH (20:57)
[2021-06-04] MEDS: OLANZapine 10 MG TABLET PO SCH (20:58)
--- NOTE | 2021-06-04 21:57 | P.PN ---
Date of Service: 06/04/21 Vital Signs Temp Pulse Resp BP Pulse Ox 97.6 F 71 20 102/51 L 90 L 06/04/21 20:00 06/04/21 20:00 06/04/21 20:00 06/04/21 20:00 06/04/21 20:00 Medications Acetaminophen (Acetaminophen 500 Mg Tab) 500 mg PO Q4HP PRN PRN Reason: Pain scale 2-4 (Mild) Atorvastatin Calcium (Atorvastatin 10 Mg Tab) 10 mg PO BEDTIME [facility] Last Admin: 06/04/21 20:57 Dose: 10 mg Documented by: Bupropion HCl (Bupropion Hcl Xl 150 Mg Tab) 150 mg PO DAILY [facility] Last Admin: 06/04/21 08:38 Dose: 150 mg Documented by: Enteral Nutritional Formula (Glucerna Shake 237 Ml Can) 237 ml PO BID [facility] Last Admin: 06/04/21 08:40 Dose: 237 ml Documented by: Fluoxetine HCl (Fluoxetine 20 Mg Cap) 40 mg PO DAILY [facility] Last Admin: 06/04/21 08:36 Dose: 40 mg Documented by: Heparin Sodium (Porcine) (Heparin 5000 Unit/Ml 1 Ml Vial) 5,000 unit SQ Q8HR [facility] Last Admin: 06/04/21 18:08 Dose: 5,000 unit Documented by: Hydralazine HCl (Hydralazine Hcl 20 Mg/Ml Vial) 10 mg IV Q6HP PRN PRN Reason: Titrate to SBP (MUST DEFINE) Hydroxyzine HCl (Hydroxyzine Hcl 25 Mg Tab) 50 mg PO TIDP PRN PRN Reason: ANXIETY Last Admin: 06/02/21 09:39 Dose: 50 mg Documented by: Sodium Chloride (Sodium Chloride) 250 mls @ 999 mls/hr IV Q15M PRN PRN Reason: HYPOTENSION Last Admin: 06/03/21 09:33 Dose: 250 mls Documented by: Sodium Chloride (Ns 1000 Ml Ivbag) 1,000 mls @ 75 mls/hr IV .[id number] [facility] Last Admin: 06/04/21 12:07 Dose: 1,000 mls Documented by: Insulin Human NPH (Nph (Human) 100 Units/Ml Insulin) 20 units SQ BID [facility] Last Admin: 06/04/21 20:58 Dose: 20 units Documented by: Insulin Human Regular (Insulin -Regular Human 50 Unit/0.5 Ml Ml) 0 unit SQ ACHS [facility]; Protocol Last Admin: 06/04/21 20:59 Dose: Not Given Documented by: Levofloxacin (Levofloxacin 250 Mg Tab) 250 mg PO Q24H [facility]; Protocol Last Admin: 06/04/21 07:55 Dose: 250 mg Documented by: Midodrine (Midodrine Hcl 5 Mg Tablet) 5 mg PO TID [facility] Last Admin: 06/04/21 20:57 Dose: 5 mg Documented by: Olanzapine (Olanzapine 10 Mg Tablet) 15 mg PO BEDTIME [facility] Last Admin: 06/04/21 20:58 Dose: 15 mg Documented by: Ondansetron HCl (Ondansetron 4 Mg/2 Ml Vial) 4 mg IV Q6HP PRN PRN Reason: NAUSEA / VOMITING Last Admin: 06/04/21 10:12 Dose: 4 mg Documented by: Sodium Chloride (Flush Normal Saline 10 Ml) 10 ml IV BID [facility] Last Admin: 06/04/21 20:59 Dose: 10 ml Documented by: Microbiology Results 05/24/21 17:30 Blood - Blood Aerobic Blood Culture - Final No growth in 5 days. 05/24/21 17:30 Blood - Blood Anaerobic Blood Culture - Final No growth in 5 days. 05/24/21 17:40 Blood - Blood Aerobic Blood Culture - Final No growth in 5 days. 05/24/21 17:40 Blood - Blood Anaerobic Blood Culture - Final No growth in 5 days. 05/24/21 19:00 Wound - Left Abdomen Gram Stain - Final 05/24/21 19:00 Wound - Left Abdomen Culture & Sensitivity - Final Providencia Stuartii Assessment/ Plan: Nephrology No dyspnea No chest pain No acute events overnight Vitals, medications, blood work and imaging reviewed in the chart General: Cooperative, Obese HEENT: Atraumatic Neck: Supple Lung: Normal respiratory effort Cardiovascular: Regular rate/rhythm, Edema Gastrointestinal: Soft and benign, Non-distended Musculoskeletal: No clubbing, No contractures Integumentary: No rashes, No cyanosis, Erythema Neurological: Normal speech Blood work reviewed in the chart. Imagings Data: EXAM DESCRIPTION: RAD - Chest Single View - 05/24/2021 5:52 pm CLINICAL HISTORY: AMS COMPARISON: Chest Single View dated 05/16/2021; Chest Single View dated 05/15/2021; Chest Single View dated 05/12/2021; Chest Pa And Lat (2 Views) dated 08/26/2017 FINDINGS: Lines: None. Lungs: No evidence of edema or pneumonia. Pleural: No significant pleural effusions or pneumothorax. Cardiac: Cardiomegaly. Bones: No acute fractures. Other: IMPRESSION: No acute cardiopulmonary disease. EXAM DESCRIPTION: CT - Head Brain Wo Cont - 05/24/2021 6:07 pm CLINICAL HISTORY: MENTAL STATUS CHANGE COMPARISON: No comparisons TECHNIQUE: All CT scans are performed using dose optimization technique as appropriate and may include automated exposure control or mA/KV adjustment according to patient size. FINDINGS: No intracranial hemorrhage, hydrocephalus or extra-axial fluid collection.No areas of brain edema or evidence of midline shift. The paranasal sinuses and mastoids are clear. The calvarium is intact. IMPRESSION: No acute intracranial abnormality. Conclusions/Impression: LEOLA in the setting of hypotension -No NSAIDs -Continue gentle IV Hyponatremia -Encourage nutrition -Continue gentle IVF HTN -Hold Lisinopril LE Edema -Hold diuretic therapy DM II with hyperglycemia -RISS Moderate malnutrition -Continue Glucerna BID Polycythemia Microcytosis Iron saturation 26% -Monitor H&H
[2021-06-05] MEDS: NA CHLORIDE 0.9% 1,000 ML IV SCH ×2 (00:20→13:47)
[2021-06-05] MEDS: HEPARIN 5000 UNIT/ML 1 ML VIAL SQ SCH ×3 (00:31→18:23)
[2021-06-05 05:11] LABS: Absolute Lymphocytes (CBC) 1.3 K/uL (0.7-4.9); Hematocrit 38.9 % (36.0-45.0); Lymphocytes % 13.1 % (15.3-44.8); MPV 8.7 fL (7.6-11.3); RBC Red Blood Cell Count 4.88 M/uL (3.86-4.86)
[2021-06-05 05:22] LABS: Bilirubin Total 0.8 mg/dL (0.2-1.0); Potassium 4.6 mmol/L (3.5-5.1); Protein, Total 5.3 g/dL (6.4-8.2)
[2021-06-05 05:45] LABS: Blood Morphology Comment NOT SEEN (NOT SEEN); Platelet Estimate DECR
[2021-06-05] MEDS: INSULIN -REGULAR HUMAN 50 UNIT/0.5 ML ML SQ SCH ×4 (07:30→21:23)
[2021-06-05] MEDS: levoFLOXacin 250 MG TAB PO SCH (07:45)
[2021-06-05] MEDS: BUPROPION HCL XL 150 MG TAB PO SCH (08:42)
[2021-06-05] MEDS: MIDODRINE HCL 5 MG TABLET PO SCH ×3 (08:42→21:20)
[2021-06-05] MEDS: FLUOXETINE 20 MG CAP PO SCH (08:42)
[2021-06-05] MEDS: GLUCERNA SHAKE 237 ML CAN PO SCH ×2 (09:00→21:00)
[2021-06-05] MEDS: NPH (HUMAN) 100 UNITS/ML INSULIN SQ SCH ×2 (09:00→21:24)
[2021-06-05] MEDS: SODIUM CHLORIDE 1 GM TAB PO SCH ×3 (10:31→18:23)
[2021-06-05] MEDS: ATORVASTATIN 10 MG TAB PO SCH (21:21)
[2021-06-05] MEDS: OLANZapine 10 MG TABLET PO SCH (21:21)
[2021-06-06] MEDS: HEPARIN 5000 UNIT/ML 1 ML VIAL SQ SCH ×3 (00:09→17:04)
[2021-06-06] MEDS: NA CHLORIDE 0.9% 1,000 ML IV SCH ×2 (03:11→16:20)
[2021-06-06] MEDS: levoFLOXacin 250 MG TAB PO SCH (06:00)
[2021-06-06 06:28] LABS: Absolute Lymphocytes (CBC) 1.3 K/uL (0.7-4.9); Hematocrit 39.6 % (36.0-45.0); Lymphocytes % 13.8 % (15.3-44.8); MPV 8.2 fL (7.6-11.3); RBC Red Blood Cell Count 4.88 M/uL (3.86-4.86)
[2021-06-06 06:52] LABS: Bilirubin Total 0.7 mg/dL (0.2-1.0); Potassium 4.5 mmol/L (3.5-5.1); Protein, Total 5.5 g/dL (6.4-8.2)
[2021-06-06] MEDS: INSULIN -REGULAR HUMAN 50 UNIT/0.5 ML ML SQ SCH ×4 (07:30→22:01)
[2021-06-06] MEDS: FLUOXETINE 20 MG CAP PO SCH (08:00)
[2021-06-06] MEDS: BUPROPION HCL XL 150 MG TAB PO SCH (08:00)
[2021-06-06] MEDS: ONDANSETRON 4 MG/2 ML VIAL IV PRN (08:00)
[2021-06-06] MEDS: SODIUM CHLORIDE 1 GM TAB PO SCH ×3 (08:00→17:00)
[2021-06-06] MEDS: MIDODRINE HCL 5 MG TABLET PO SCH ×3 (08:01→22:01)
[2021-06-06] MEDS: NPH (HUMAN) 100 UNITS/ML INSULIN SQ SCH ×2 (08:09→22:01)
[2021-06-06] MEDS: GLUCERNA SHAKE 237 ML CAN PO SCH ×3 (09:00→22:10)
[2021-06-06 10:16] LABS: Anisocytosis 1+; Blood Morphology Comment NOTED (NOT SEEN); Platelet Estimate DECR
--- NOTE | 2021-06-06 15:39 | PN ---
Date of Progress Note: 06/05/2021 Subjective: The patient is seen at the bedside. The patient remains on nasal cannula oxygen. State s that her breathing has shown some improvement; however, she does feel some labored breathing with a ctivity. Objective: Vital Signs: Show blood pressure is 105/51, pulse 81, afebrile. General: No acute distress. Heart: Regular rate and rhythm. No murmurs, rubs, gallops. Lungs: Grossly clear. Abdomen: Soft, nontender. Extremities: With 1+ edema. Laboratory Data: H and H 12.7/38.9. Serum chemistry; sodium 128, potassium 4.6, chloride 95, CO2 24 , BUN 58, creatinine 1.84, glucose 80. Current Medications: Reviewed. Of note, the patient is on normal saline at 75 mL an hour, midodrine 5 mg p.o. t.i.d., Levaquin 250 mg p.o. daily, sodium chloride 1 g p.o. t.i.d. Impression: 1.Acute kidney injury, likely in setting of volume depletion. 2.Hyponatremia, which appears to be depletional. 3.COVID-19 pneumonia. 4.Acute respiratory failure. 5.Hypertension. Plan: The patient is on both normal saline as well as sodium chloride tablets. Once sodium is in no rmal range, we would recommend discontinuing IV fluids, sodium chloride tablets can be continued unde r monitoring; however, given the patient's history of edema, we would not recommend long-term use of sodium chloride tablets, especially p.o. intake has improved. The patient will likely need to reestablish on diuretics either in in or outpatient setting. SE/MODL Voice ID: [id number] Report ID: [id number]
[2021-06-06] MEDS ORDERED: NA CHLORIDE 0.9% 1,000 ML ONE (16:57)
[2021-06-06] MEDS: OLANZapine 10 MG TABLET PO SCH (22:01)
[2021-06-06] MEDS: ATORVASTATIN 10 MG TAB PO SCH (22:02)
[2021-06-07] MEDS: HEPARIN 5000 UNIT/ML 1 ML VIAL SQ SCH ×3 (03:23→18:32)
[2021-06-07] MEDS: INSULIN -REGULAR HUMAN 50 UNIT/0.5 ML ML SQ SCH ×4 (07:30→20:46)
[2021-06-07] MEDS: SODIUM CHLORIDE 1 GM TAB PO SCH ×3 (08:00→18:31)
[2021-06-07] MEDS: GLUCERNA SHAKE 237 ML CAN PO SCH ×2 (09:00→20:47)
[2021-06-07] MEDS: FLUOXETINE 20 MG CAP PO SCH (09:22)
[2021-06-07] MEDS: MIDODRINE HCL 5 MG TABLET PO SCH ×3 (09:23→20:44)
[2021-06-07] MEDS: levoFLOXacin 250 MG TAB PO SCH (09:23)
[2021-06-07] MEDS: hydrOXYzine HCL 25 MG TAB PO PRN (09:23)
[2021-06-07] MEDS: NPH (HUMAN) 100 UNITS/ML INSULIN SQ SCH ×2 (09:23→20:44)
[2021-06-07] MEDS: BUPROPION HCL XL 150 MG TAB PO SCH (09:25)
--- NOTE | 2021-06-07 20:23 | P.PN ---
Date of Service: 06/05/21 Subjective Patient's renal function has improved. Clinical symptoms are better. Physical Examination - Physical Exam General: Oriented x3, Obese; Respiratory: Clear to auscultation bilaterally Cardiovascular: No edema, Regular rate/rhythm, Normal S1 S2 Gastrointestinal: Normal bowel sounds, No tenderness Integumentary: Erythema has resolved; minimal edema Neurological: Generalized weakness and no focal deficits Assessment and Plan - Problems (Diagnosis) (1) Bipolar disorder Current Visit: Yes Status: Chronic Qualifiers: Active/Remission status: remission status unspecified Qualified Code(s): F31.9 - Bipolar disorder, unspecified (2) Hyponatremia with acute kidney injury Current Visit: Yes Status: Acute (3) AMS (altered mental status) Current Visit: Yes Status: Acute Qualifiers: Altered mental status type: unspecified Qualified Code(s): R41.82 - Altered mental status, unspecified (4) Cellulitis Current Visit: Yes Status: Acute Qualifiers: Site of cellulitis: trunk Site of cellulitis of trunk: groin Qualified Code(s): L03.314 - Cellulitis of groin (5) HLD (hyperlipidemia) Current Visit: No Status: Chronic Qualifiers: Hyperlipidemia type: unspecified Qualified Code(s): E78.5 - Hyperlipidemia, unspecified (6) HTN (hypertension) Current Visit: No Status: Chronic Qualifiers: Hypertension type: primary hypertension Qualified Code(s): I10 - Essential (primary) hypertension (7) T2DM (type 2 diabetes mellitus) Current Visit: No Status: Chronic Qualifiers: 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 Continue monitoring renal function. Plan to change to oral antibiotics Strict blood sugar and blood pressure control Continue O2 per protocol [place] placement pending DVT prophylaxis
--- NOTE | 2021-06-07 20:26 | P.PN ---
Date of Service: 06/06/21 Subjective Patient's creatinine is back to baseline. Patient's clinical symptoms are improving. Patient feels much better. Sodium is corrected. Physical Examination - Physical Exam General: Oriented x3, Obese; Respiratory: Clear to auscultation bilaterally Cardiovascular: No edema, Regular rate/rhythm, Normal S1 S2 Gastrointestinal: Normal bowel sounds, No tenderness Integumentary: Erythema has resolved; minimal edema Neurological: Generalized weakness and no focal deficits Assessment and Plan - Problems (Diagnosis) (1) Bipolar disorder Current Visit: Yes Status: Chronic Qualifiers: Active/Remission status: remission status unspecified Qualified Code(s): F31.9 - Bipolar disorder, unspecified (2) Hyponatremia with acute kidney injury Current Visit: Yes Status: Acute (3) AMS (altered mental status) Current Visit: Yes Status: Acute Qualifiers: Altered mental status type: unspecified Qualified Code(s): R41.82 - Altered mental status, unspecified (4) Cellulitis Current Visit: Yes Status: Acute Qualifiers: Site of cellulitis: trunk Site of cellulitis of trunk: groin Qualified Code(s): L03.314 - Cellulitis of groin (5) HLD (hyperlipidemia) Current Visit: No Status: Chronic Qualifiers: Hyperlipidemia type: unspecified Qualified Code(s): E78.5 - Hyperlipidemia, unspecified (6) HTN (hypertension) Current Visit: No Status: Chronic Qualifiers: Hypertension type: primary hypertension Qualified Code(s): I10 - Essential (primary) hypertension (7) T2DM (type 2 diabetes mellitus) Current Visit: No Status: Chronic Qualifiers: Diabetes mellitus chcf insulin use: unspecified chcf insulin use status Diabetes mellitus complication status: without complication Qualified Code(s): E11.9 - Type 2 diabetes mellitus without complications - Plan Renal function is improved. Continue monitoring renal function. Plan to Hep- Lock IV Plan to change to oral antibiotics Strict blood sugar and blood pressure control Wean off of O2 [place] placement pending [place] is much better DVT prophylaxis
--- NOTE | 2021-06-07 20:27 | P.PN ---
Date of Service: 06/07/21 Subjective patient doing well. Renal function is better. Anticipate discharge over the next 24-48 hr. Physical Examination - Physical Exam General: Oriented x3, Obese; Respiratory: Clear to auscultation bilaterally Cardiovascular: No edema, Regular rate/rhythm, Normal S1 S2 Gastrointestinal: Normal bowel sounds, No tenderness Integumentary: Erythema has resolved; minimal edema Neurological: Generalized weakness and no focal deficits Assessment and Plan - Problems (Diagnosis) (1) Bipolar disorder Current Visit: Yes Status: Chronic Qualifiers: Active/Remission status: remission status unspecified Qualified Code(s): F31.9 - Bipolar disorder, unspecified (2) Hyponatremia with acute kidney injury Current Visit: Yes Status: Acute (3) AMS (altered mental status) Current Visit: Yes Status: Acute Qualifiers: Altered mental status type: unspecified Qualified Code(s): R41.82 - Altered mental status, unspecified (4) Cellulitis Current Visit: Yes Status: Acute Qualifiers: Site of cellulitis: trunk Site of cellulitis of trunk: groin Qualified Code(s): L03.314 - Cellulitis of groin (5) HLD (hyperlipidemia) Current Visit: No Status: Chronic Qualifiers: Hyperlipidemia type: unspecified Qualified Code(s): E78.5 - Hyperlipidemia, unspecified (6) HTN (hypertension) Current Visit: No Status: Chronic Qualifiers: Hypertension type: primary hypertension Qualified Code(s): I10 - Essential (primary) hypertension (7) T2DM (type 2 diabetes mellitus) Current Visit: No Status: Chronic Qualifiers: Diabetes mellitus jail insulin use: unspecified jail insulin use status Diabetes mellitus complication status: without complication Qualified Code(s): E11.9 - Type 2 diabetes mellitus without complications - Plan Patient continues to improve. Continue with plan of care as mentioned below: Renal function is improved. Continue monitoring renal function. Plan to Hep- Lock IV Plan to change to oral antibiotics Strict blood sugar and blood pressure control Wean off of O2 [facility] placement pending [place] is much better DVT prophylaxis
[2021-06-07] MEDS: OLANZapine 10 MG TABLET PO SCH (20:43)
[2021-06-07] MEDS: ATORVASTATIN 10 MG TAB PO SCH (20:43)
[2021-06-08] MEDS: HEPARIN 5000 UNIT/ML 1 ML VIAL SQ SCH ×3 (01:00→16:20)
[2021-06-08 05:58] LABS: Absolute Lymphocytes (CBC) 1.3 K/uL (0.7-4.9); Hematocrit 39.7 % (36.0-45.0); Lymphocytes % 14.6 % (15.3-44.8); MPV 7.5 fL (7.6-11.3); RBC Red Blood Cell Count 4.88 M/uL (3.86-4.86)
[2021-06-08 06:13] LABS: Phosphorus 3.2 mg/dL (2.5-4.9); Potassium 4.1 mmol/L (3.5-5.1)
[2021-06-08] MEDS: INSULIN -REGULAR HUMAN 50 UNIT/0.5 ML ML SQ SCH ×4 (07:30→21:00)
[2021-06-08] MEDS ORDERED: FUROSEMIDE 20 MG/ 2ML VIAL IV ONE (08:00)
[2021-06-08] MEDS ORDERED: ALBUMIN HUMAN 25% 50 ML IV ONE (08:00)
[2021-06-08] MEDS: levoFLOXacin 250 MG TAB PO SCH (08:02)
[2021-06-08] MEDS: MIDODRINE HCL 5 MG TABLET PO SCH ×3 (08:08→21:34)
[2021-06-08] MEDS: FLUOXETINE 20 MG CAP PO SCH (08:08)
[2021-06-08] MEDS: BUPROPION HCL XL 150 MG TAB PO SCH (08:09)
[2021-06-08] MEDS: SODIUM CHLORIDE 1 GM TAB PO SCH ×3 (08:09→16:20)
[2021-06-08] MEDS: GLUCERNA SHAKE 237 ML CAN PO SCH ×2 (08:10→21:00)
[2021-06-08] MEDS: NPH (HUMAN) 100 UNITS/ML INSULIN SQ SCH ×2 (10:51→21:00)
[2021-06-08] MEDS: ACETAMINOPHEN 500 MG TAB PO PRN (10:54)
[2021-06-08] MEDS: OLANZapine 10 MG TABLET PO SCH (21:33)
[2021-06-08] MEDS: ATORVASTATIN 10 MG TAB PO SCH (21:34)
[2021-06-09] MEDS: HEPARIN 5000 UNIT/ML 1 ML VIAL SQ SCH ×3 (00:17→16:37)
[2021-06-09] MEDS: ACETAMINOPHEN 500 MG TAB PO PRN (01:21)
[2021-06-09] MEDS: INSULIN -REGULAR HUMAN 50 UNIT/0.5 ML ML SQ SCH ×4 (07:30→20:44)
[2021-06-09] MEDS: SODIUM CHLORIDE 1 GM TAB PO SCH ×3 (08:00→16:38)
[2021-06-09] MEDS: MIDODRINE HCL 5 MG TABLET PO SCH ×3 (08:17→20:44)
[2021-06-09] MEDS: FLUOXETINE 20 MG CAP PO SCH (08:18)
[2021-06-09] MEDS: BUPROPION HCL XL 150 MG TAB PO SCH (08:18)
[2021-06-09] MEDS: GLUCERNA SHAKE 237 ML CAN PO SCH ×2 (08:19→20:43)
[2021-06-09] MEDS: NPH (HUMAN) 100 UNITS/ML INSULIN SQ SCH ×2 (08:49→20:53)
[2021-06-09] MEDS: levoFLOXacin 250 MG TAB PO SCH (11:00)
[2021-06-09] MEDS: ONDANSETRON 4 MG/2 ML VIAL IV PRN (15:34)
[2021-06-09] MEDS: ATORVASTATIN 10 MG TAB PO SCH (20:43)
[2021-06-09] MEDS: OLANZapine 10 MG TABLET PO SCH (20:44)
[2021-06-10] MEDS: HEPARIN 5000 UNIT/ML 1 ML VIAL SQ SCH ×3 (00:04→16:01)
--- NOTE | 2021-06-10 01:50 | P.PN ---
Date of Service: 06/08/21 Subjective Patient continues to do well; symptoms improving; Physical Examination - Physical Exam General: Oriented x3, Obese; Respiratory: Clear to auscultation bilaterally Cardiovascular: No edema, Regular rate/rhythm, Normal S1 S2 Gastrointestinal: Normal bowel sounds, No tenderness Integumentary: Erythema has resolved; minimal edema Neurological: Generalized weakness and no focal deficits Assessment and Plan - Problems (Diagnosis) (1) Bipolar disorder Current Visit: Yes Status: Chronic Qualifiers: Active/Remission status: remission status unspecified Qualified Code(s): F31.9 - Bipolar disorder, unspecified (2) Hyponatremia with acute kidney injury Current Visit: Yes Status: Acute (3) AMS (altered mental status) Current Visit: Yes Status: Acute Qualifiers: Altered mental status type: unspecified Qualified Code(s): R41.82 - Altered mental status, unspecified (4) Cellulitis Current Visit: Yes Status: Acute Qualifiers: Site of cellulitis: trunk Site of cellulitis of trunk: groin Qualified Code(s): L03.314 - Cellulitis of groin (5) HLD (hyperlipidemia) Current Visit: No Status: Chronic Qualifiers: Hyperlipidemia type: unspecified Qualified Code(s): E78.5 - Hyperlipidemia, unspecified (6) HTN (hypertension) Current Visit: No Status: Chronic Qualifiers: Hypertension type: primary hypertension Qualified Code(s): I10 - Essential (primary) hypertension (7) T2DM (type 2 diabetes mellitus) Current Visit: No Status: Chronic Qualifiers: 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 Continue with plan of care as mentioned below: Renal function is improved. Continue monitoring renal function. Hep-Lock IV Continue oral antibiotics Strict blood sugar and blood pressure control Wean off of O2 [facility] placement pending [place] is better DVT prophylaxis
--- NOTE | 2021-06-10 01:50 | P.PN ---
Date of Service: 06/09/21 Subjective Patient with no new changes; continues to do well Physical Examination - Physical Exam General: Oriented x3, Obese; Respiratory: Clear to auscultation bilaterally Cardiovascular: No edema, Regular rate/rhythm, Normal S1 S2 Gastrointestinal: Normal bowel sounds, No tenderness Integumentary: Erythema has resolved; minimal edema Neurological: Generalized weakness and no focal deficits Assessment and Plan - Problems (Diagnosis) (1) Bipolar disorder Current Visit: Yes Status: Chronic Qualifiers: Active/Remission status: remission status unspecified Qualified Code(s): F31.9 - Bipolar disorder, unspecified (2) Hyponatremia with acute kidney injury Current Visit: Yes Status: Acute (3) AMS (altered mental status) Current Visit: Yes Status: Acute Qualifiers: Altered mental status type: unspecified Qualified Code(s): R41.82 - Altered mental status, unspecified (4) Cellulitis Current Visit: Yes Status: Acute Qualifiers: Site of cellulitis: trunk Site of cellulitis of trunk: groin Qualified Code(s): L03.314 - Cellulitis of groin (5) HLD (hyperlipidemia) Current Visit: No Status: Chronic Qualifiers: Hyperlipidemia type: unspecified Qualified Code(s): E78.5 - Hyperlipidemia, unspecified (6) HTN (hypertension) Current Visit: No Status: Chronic Qualifiers: Hypertension type: primary hypertension Qualified Code(s): I10 - Essential (primary) hypertension (7) T2DM (type 2 diabetes mellitus) Current Visit: No Status: Chronic Qualifiers: 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 Continue with plan of care as mentioned below: Hep-Lock IV; labs are stable Continue oral antibiotics Strict blood sugar and blood pressure control Wean off of O2 [facility] placement pending Mentation is better DVT prophylaxis
[2021-06-10] MEDS: INSULIN -REGULAR HUMAN 50 UNIT/0.5 ML ML SQ SCH ×4 (07:30→20:47)
[2021-06-10] MEDS ORDERED: FUROSEMIDE 20 MG/ 2ML VIAL IV ONE (08:00)
[2021-06-10] MEDS: FLUOXETINE 20 MG CAP PO SCH (08:35)
[2021-06-10] MEDS: BUPROPION HCL XL 150 MG TAB PO SCH (08:35)
[2021-06-10] MEDS: SODIUM CHLORIDE 1 GM TAB PO SCH ×3 (08:35→16:01)
[2021-06-10] MEDS: MIDODRINE HCL 5 MG TABLET PO SCH ×3 (08:36→20:45)
[2021-06-10] MEDS: GLUCERNA SHAKE 237 ML CAN PO SCH ×2 (08:36→20:47)
[2021-06-10] MEDS: NPH (HUMAN) 100 UNITS/ML INSULIN SQ SCH ×2 (08:42→20:47)
[2021-06-10] MEDS: ATORVASTATIN 10 MG TAB PO SCH (20:45)
[2021-06-10] MEDS: OLANZapine 10 MG TABLET PO SCH (20:46)
--- NOTE | 2021-06-10 23:49 | P.PN ---
Date of Service: 06/10/21 Subjective Patient is doing well with no new complaints. She did say she was having some difficulty with her diet. Will start her on a pureed diet. Physical Examination - Physical Exam General: Oriented x3, Obese; Respiratory: Clear to auscultation bilaterally Cardiovascular: No edema, Regular rate/rhythm, Normal S1 S2 Gastrointestinal: Normal bowel sounds, No tenderness Integumentary: Erythema has resolved; minimal edema Neurological: Generalized weakness and no focal deficits Assessment and Plan - Problems (Diagnosis) (1) Bipolar disorder Current Visit: Yes Status: Chronic Qualifiers: Active/Remission status: remission status unspecified Qualified Code(s): F31.9 - Bipolar disorder, unspecified (2) Hyponatremia with acute kidney injury Current Visit: Yes Status: Acute (3) AMS (altered mental status) Current Visit: Yes Status: Acute Qualifiers: Altered mental status type: unspecified Qualified Code(s): R41.82 - Altered mental status, unspecified (4) Cellulitis Current Visit: Yes Status: Acute Qualifiers: Site of cellulitis: trunk Site of cellulitis of trunk: groin Qualified Code(s): L03.314 - Cellulitis of groin (5) HLD (hyperlipidemia) Current Visit: No Status: Chronic Qualifiers: Hyperlipidemia type: unspecified Qualified Code(s): E78.5 - Hyperlipidemia, unspecified (6) HTN (hypertension) Current Visit: No Status: Chronic Qualifiers: Hypertension type: primary hypertension Qualified Code(s): I10 - Essential (primary) hypertension (7) T2DM (type 2 diabetes mellitus) Current Visit: No Status: Chronic Qualifiers: Diabetes mellitus [facility] 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 Continue with plan of care as mentioned below: Hep-Lock IV; labs are stable Continue oral antibiotics Strict blood sugar and blood pressure control Wean off of O2 [facility] placement pending Mentation is better DVT prophylaxis
[2021-06-11] MEDS: HEPARIN 5000 UNIT/ML 1 ML VIAL SQ SCH ×3 (00:57→17:39)
[2021-06-11 06:28] LABS: Absolute Lymphocytes (CBC) 1.8 K/uL (0.7-4.9); Hematocrit 39.4 % (36.0-45.0); Lymphocytes % 18.1 % (15.3-44.8); MPV 7.3 fL (7.6-11.3); RBC Red Blood Cell Count 4.84 M/uL (3.86-4.86)
[2021-06-11] MEDS: INSULIN -REGULAR HUMAN 50 UNIT/0.5 ML ML SQ SCH ×4 (07:30→21:16)
[2021-06-11 07:55] LABS: Potassium 3.8 mmol/L (3.5-5.1)
[2021-06-11] MEDS: SODIUM CHLORIDE 1 GM TAB PO SCH ×3 (08:00→17:00)
[2021-06-11] MEDS: MIDODRINE HCL 5 MG TABLET PO SCH ×3 (08:13→21:15)
[2021-06-11] MEDS: FLUOXETINE 20 MG CAP PO SCH (08:13)
[2021-06-11] MEDS: BUPROPION HCL XL 150 MG TAB PO SCH (08:13)
[2021-06-11] MEDS: NPH (HUMAN) 100 UNITS/ML INSULIN SQ SCH ×2 (08:14→21:00)
[2021-06-11] MEDS: GLUCERNA SHAKE 237 ML CAN PO SCH ×2 (08:14→21:00)
[2021-06-11 16:38] LABS: Magnesium 1.7
--- NOTE | 2021-06-11 16:57 | P.PN ---
Subjective Date of Service: 06/11/21 Primary Care Provider: unknown Chief Complaint: AMS Subjective: No new changes (Working with physical therapy. She is participating well. Currently on 4 L of oxygen via nasal cannula.) Physical Examination - Vital Signs Temperature: 97.7 F Blood Pressure: 148/63 Pulse: 88 Respirations: 18 Pulse Ox (%): 94 - Physical Exam General: In no apparent distress HEENT: Atraumatic, Normocephalic Respiratory: Other (Unlabored breathing) Neurological: Normal speech, Normal affect Assessment & Plan Physician Review: Patient Assessed, Agree with Above Assessment and Plan Physician Review Additional Text: Assessment Patient is a 66-year-old female with a past medical history of bipolar disorder who presented with altered mental status. Her hospital course was marked by generalized weakness, hyponatremia and renal insufficiency. Most of these issues have improved for the most part. She is working with physical therapy and waiting for SNF placement.. Toxicity encephalopathy related to abdominal cellulitis, wound culture positive for Providencia stuartii Acute on chronic respiratory failure Acute on chronic renal disease stage III Hyponatremia Hypotension Hyperlipidemia Acute CHF exacerbation Bipolar disorder Diabetes mellitus type 2 COVID-19 positive Plan: Continue physical therapy while in-house Continue supplemental oxygen She is on medications for hyperlipidemia, bipolar disorder, and hypertension She can be discharged once she has been accepted DVT prophylaxis: Heparin CODE STATUS: Full code
[2021-06-11] MEDS: ATORVASTATIN 10 MG TAB PO SCH (21:15)
[2021-06-11] MEDS: OLANZapine 10 MG TABLET PO SCH (21:16)
[2021-06-12] MEDS: HEPARIN 5000 UNIT/ML 1 ML VIAL SQ SCH ×3 (00:04→17:00)
[2021-06-12] MEDS: INSULIN -REGULAR HUMAN 50 UNIT/0.5 ML ML SQ SCH ×4 (07:30→20:45)
[2021-06-12] MEDS: SODIUM CHLORIDE 1 GM TAB PO SCH ×3 (08:00→17:00)
[2021-06-12] MEDS: BUPROPION HCL XL 150 MG TAB PO SCH (08:24)
[2021-06-12] MEDS: NPH (HUMAN) 100 UNITS/ML INSULIN SQ SCH ×2 (08:24→20:46)
[2021-06-12] MEDS: MIDODRINE HCL 5 MG TABLET PO SCH ×3 (08:24→20:44)
[2021-06-12] MEDS: FLUOXETINE 20 MG CAP PO SCH (08:24)
[2021-06-12] MEDS: MEDIHONEY 44 ML TOPICAL TUBE TOP SCH (08:25)
[2021-06-12] MEDS: GLUCERNA SHAKE 237 ML CAN PO SCH ×2 (08:26→20:46)
[2021-06-12] MEDS: ONDANSETRON 4 MG/2 ML VIAL IV PRN (09:09)
--- NOTE | 2021-06-12 13:44 | P.PN ---
Subjective Date of Service: 06/12/21 Primary Care Provider: unknown Chief Complaint: AMS Subjective: No new changes (Patient has multiple bruises to her lower abdomen from the heparin injections) Physical Examination - Vital Signs Temperature: 96.9 F Blood Pressure: 134/75 Pulse: 81 Respirations: 20 Pulse Ox (%): 93 - Physical Exam General: In no apparent distress, Cooperative HEENT: Atraumatic, Normocephalic Neck: Supple Respiratory: Normal air movement Cardiovascular: No edema, Regular rate/rhythm, Normal S1 S2 Gastrointestinal: Soft and benign, Non-distended, Other (Multiple ecchymosis to the lower abdomen) Musculoskeletal: No clubbing, No swelling, No contractures Assessment & Plan Physician Review: Patient Assessed, Agree with Above Assessment and Plan Physician Review Additional Text: Assessment Patient is a 66-year-old female with a past medical history of bipolar disorder who presented with altered mental status. Her hospital course was marked by generalized weakness, hyponatremia and renal insufficiency. Most of t hese issues have improved for the most part. She is working with physical therapy and waiting for SNF placement. She is medically cleared Toxicity encephalopathy related to abdominal cellulitis, wound culture positive for Providencia stuartii Acute on chronic respiratory failure Acute on chronic renal disease stage III Hyponatremia Hypotension Hyperlipidemia Acute CHF exacerbation Bipolar disorder Diabetes mellitus type 2 COVID-19 positive Plan: Transfer to [place] once we obtain acceptance Continue physical therapy while in-house Continue supplemental oxygen She is on medications for hyperlipidemia, bipolar disorder, and hypertension DVT prophylaxis: Heparin CODE STATUS: Full code
[2021-06-12 14:32] LABS: Potassium 4.7 mmol/L (3.5-5.1)
[2021-06-12] MEDS: OLANZapine 10 MG TABLET PO SCH (20:44)
[2021-06-12] MEDS: ATORVASTATIN 10 MG TAB PO SCH (20:45)
--- NOTE | 2021-06-12 21:34 | P.PN ---
Date of Service: 06/12/21 Vital Signs Temp Pulse Resp BP Pulse Ox 98.1 F 81 19 122/61 92 06/12/21 20:00 06/12/21 20:00 06/12/21 20:00 06/12/21 20:00 06/12/21 20:00 Medications Acetaminophen (Acetaminophen 500 Mg Tab) 500 mg PO Q4HP PRN PRN Reason: Pain scale 2-4 (Mild) Last Admin: 06/09/21 01:21 Dose: 500 mg Documented by: Atorvastatin Calcium (Atorvastatin 10 Mg Tab) 10 mg PO BEDTIME [facility] Last Admin: 06/12/21 20:45 Dose: 10 mg Documented by: Bupropion HCl (Bupropion Hcl Xl 150 Mg Tab) 150 mg PO DAILY [facility] Last Admin: 06/12/21 08:24 Dose: 150 mg Documented by: Emollient Gel (Medihoney 44 Ml Topical Tube) 1 appl TOP DAILY [facility] Last Admin: 06/12/21 08:25 Dose: 1 ea Documented by: Enteral Nutritional Formula (Glucerna Shake 237 Ml Can) 237 ml PO BID [facility] Last Admin: 06/12/21 20:46 Dose: 237 ml Documented by: Fluoxetine HCl (Fluoxetine 20 Mg Cap) 40 mg PO DAILY [facility] Last Admin: 06/12/21 08:24 Dose: 40 mg Documented by: Heparin Sodium (Porcine) (Heparin 5000 Unit/Ml 1 Ml Vial) 5,000 unit SQ Q8HR [facility] Last Admin: 06/12/21 17:00 Dose: Not Given Documented by: Hydralazine HCl (Hydralazine Hcl 20 Mg/Ml Vial) 10 mg IV Q6HP PRN PRN Reason: Titrate to SBP (MUST DEFINE) Hydroxyzine HCl (Hydroxyzine Hcl 25 Mg Tab) 50 mg PO TIDP PRN PRN Reason: ANXIETY Last Admin: 06/07/21 09:23 Dose: 50 mg Documented by: Sodium Chloride (Sodium Chloride) 250 mls @ 999 mls/hr IV Q15M PRN PRN Reason: HYPOTENSION Last Admin: 06/03/21 09:33 Dose: 250 mls Documented by: Insulin Human NPH (Nph (Human) 100 Units/Ml Insulin) 20 units SQ BID [facility] Last Admin: 06/12/21 20:46 Dose: 20 units Documented by: Insulin Human Regular (Insulin -Regular Human 50 Unit/0.5 Ml Ml) 0 unit SQ ACHS [facility]; Protocol Last Admin: 06/12/21 20:45 Dose: 4 unit Documented by: Midodrine (Midodrine Hcl 5 Mg Tablet) 5 mg PO TID [facility] Last Admin: 06/12/21 20:44 Dose: 5 mg Documented by: Olanzapine (Olanzapine 10 Mg Tablet) 15 mg PO BEDTIME [facility] Last Admin: 06/12/21 20:44 Dose: 15 mg Documented by: Ondansetron HCl (Ondansetron 4 Mg/2 Ml Vial) 4 mg IV Q6HP PRN PRN Reason: NAUSEA / VOMITING Last Admin: 06/12/21 09:09 Dose: 4 mg Documented by: Sodium Chloride (Flush Normal Saline 10 Ml) 10 ml IV BID [facility] Last Admin: 06/12/21 20:46 Dose: 10 ml Documented by: Sodium Chloride (Sodium Chloride 1 Gm Tab) 1 gm PO TIDWM [facility] Last Admin: 06/12/21 17:00 Dose: 1 gm Documented by: Microbiology Results 05/24/21 17:30 Blood - Blood Aerobic Blood Culture - Final No growth in 5 days. 05/24/21 17:30 Blood - Blood Anaerobic Blood Culture - Final No growth in 5 days. 05/24/21 17:40 Blood - Blood Aerobic Blood Culture - Final No growth in 5 days. 05/24/21 17:40 Blood - Blood Anaerobic Blood Culture - Final No growth in 5 days. 05/24/21 19:00 Wound - Left Abdomen Gram Stain - Final 05/24/21 19:00 Wound - Left Abdomen Culture & Sensitivity - Final Providencia Stuartii Assessment/ Plan: Nephrology No dyspnea No chest pain +Appetite No acute events overnight Vitals, medications, blood work and imaging reviewed in the chart General: Cooperative, Obese HEENT: Atraumatic Neck: Supple Lung: Normal respiratory effort Cardiovascular: Regular rate/rhythm, Edema Gastrointestinal: Soft and benign, Non-distended Musculoskeletal: No clubbing, No contractures Integumentary: No rashes, No cyanosis, Erythema Neurological: Normal speech Blood work reviewed in the chart. Imagings Data: EXAM DESCRIPTION: RAD - Chest Single View - 05/24/2021 5:52 pm CLINICAL HISTORY: AMS COMPARISON: Chest Single View dated 05/16/2021; Chest Single View dated 05/15/2021; Chest Single View dated 05/12/2021; Chest Pa And Lat (2 Views) dated 08/26/2017 FINDINGS: Lines: None. Lungs: No evidence of edema or pneumonia. Pleural: No significant pleural effusions or pneumothorax. Cardiac: Cardiomegaly. Bones: No acute fractures. Other: IMPRESSION: No acute cardiopulmonary disease. EXAM DESCRIPTION: CT - Head Brain Wo Cont - 05/24/2021 6:07 pm CLINICAL HISTORY: MENTAL STATUS CHANGE COMPARISON: No comparisons TECHNIQUE: All CT scans are performed using dose optimization technique as appropriate and may include automated exposure control or mA/KV adjustment according to patient size. FINDINGS: No intracranial hemorrhage, hydrocephalus or extra-axial fluid collection.No areas of brain edema or evidence of midline shift. The paranasal sinuses and mastoids are clear. The calvarium is intact. IMPRESSION: No acute intracranial abnormality. Conclusions/Impression: LEOLA in the setting of hypotension -No NSAIDs Hyponatremia -Encourage nutrition -Discontinue NaCl tab at this time HTN -Hold Lisinopril LE Edema -Low sodium diet DM II with hyperglycemia -RISS Moderate malnutrition -Continue Glucerna BID Polycythemia Microcytosis Iron saturation 26% -Monitor H&H
[2021-06-13] MEDS: HEPARIN 5000 UNIT/ML 1 ML VIAL SQ SCH ×3 (00:58→16:54)
[2021-06-13] MEDS: INSULIN -REGULAR HUMAN 50 UNIT/0.5 ML ML SQ SCH ×4 (07:30→20:56)
[2021-06-13] MEDS: MIDODRINE HCL 5 MG TABLET PO SCH ×3 (08:53→20:55)
[2021-06-13] MEDS: BUPROPION HCL XL 150 MG TAB PO SCH (08:53)
[2021-06-13] MEDS: FLUOXETINE 20 MG CAP PO SCH (08:53)
[2021-06-13] MEDS: GLUCERNA SHAKE 237 ML CAN PO SCH ×2 (08:54→20:59)
[2021-06-13] MEDS: MEDIHONEY 44 ML TOPICAL TUBE TOP SCH (08:54)
[2021-06-13] MEDS: NPH (HUMAN) 100 UNITS/ML INSULIN SQ SCH ×2 (08:55→20:56)
--- NOTE | 2021-06-13 10:42 | P.PN ---
Date of Service: 06/13/21 Vital Signs Temp Pulse Resp BP Pulse Ox 97.0 F 84 18 118/60 92 06/13/21 08:00 06/13/21 08:00 06/13/21 08:00 06/13/21 08:00 06/13/21 08:00 Medications Acetaminophen (Acetaminophen 500 Mg Tab) 500 mg PO Q4HP PRN PRN Reason: Pain scale 2-4 (Mild) Last Admin: 06/09/21 01:21 Dose: 500 mg Documented by: Atorvastatin Calcium (Atorvastatin 10 Mg Tab) 10 mg PO BEDTIME [facility] Last Admin: 06/12/21 20:45 Dose: 10 mg Documented by: Bupropion HCl (Bupropion Hcl Xl 150 Mg Tab) 150 mg PO DAILY [facility] Last Admin: 06/13/21 08:53 Dose: 150 mg Documented by: Emollient Gel (Medihoney 44 Ml Topical Tube) 1 appl TOP DAILY [facility] Last Admin: 06/13/21 08:54 Dose: 1 ea Documented by: Enteral Nutritional Formula (Glucerna Shake 237 Ml Can) 237 ml PO BID [facility] Last Admin: 06/13/21 08:54 Dose: 237 ml Documented by: Fluoxetine HCl (Fluoxetine 20 Mg Cap) 40 mg PO DAILY [facility] Last Admin: 06/13/21 08:53 Dose: 40 mg Documented by: Heparin Sodium (Porcine) (Heparin 5000 Unit/Ml 1 Ml Vial) 5,000 unit SQ Q8HR [facility] Last Admin: 06/13/21 08:53 Dose: 5,000 unit Documented by: Hydralazine HCl (Hydralazine Hcl 20 Mg/Ml Vial) 10 mg IV Q6HP PRN PRN Reason: Titrate to SBP (MUST DEFINE) Hydroxyzine HCl (Hydroxyzine Hcl 25 Mg Tab) 50 mg PO TIDP PRN PRN Reason: ANXIETY Last Admin: 06/07/21 09:23 Dose: 50 mg Documented by: Sodium Chloride (Sodium Chloride) 250 mls @ 999 mls/hr IV Q15M PRN PRN Reason: HYPOTENSION Last Admin: 06/03/21 09:33 Dose: 250 mls Documented by: Insulin Human NPH (Nph (Human) 100 Units/Ml Insulin) 20 units SQ BID [facility] Last Admin: 06/13/21 08:55 Dose: 20 units Documented by: Insulin Human Regular (Insulin -Regular Human 50 Unit/0.5 Ml Ml) 0 unit SQ ACHS [facility]; Protocol Last Admin: 06/13/21 07:30 Dose: Not Given Documented by: Midodrine (Midodrine Hcl 5 Mg Tablet) 5 mg PO TID [facility] Last Admin: 06/13/21 08:53 Dose: 5 mg Documented by: Olanzapine (Olanzapine 10 Mg Tablet) 15 mg PO BEDTIME [facility] Last Admin: 06/12/21 20:44 Dose: 15 mg Documented by: Ondansetron HCl (Ondansetron 4 Mg/2 Ml Vial) 4 mg IV Q6HP PRN PRN Reason: NAUSEA / VOMITING Last Admin: 06/12/21 09:09 Dose: 4 mg Documented by: Sodium Chloride (Flush Normal Saline 10 Ml) 10 ml IV BID [facility] Last Admin: 06/13/21 08:55 Dose: 10 ml Documented by: Microbiology Results 05/24/21 17:30 Blood - Blood Aerobic Blood Culture - Final No growth in 5 days. 05/24/21 17:30 Blood - Blood Anaerobic Blood Culture - Final No growth in 5 days. 05/24/21 17:40 Blood - Blood Aerobic Blood Culture - Final No growth in 5 days. 05/24/21 17:40 Blood - Blood Anaerobic Blood Culture - Final No growth in 5 days. 05/24/21 19:00 Wound - Left Abdomen Gram Stain - Final 05/24/21 19:00 Wound - Left Abdomen Culture & Sensitivity - Final Providencia Stuartii Assessment/ Plan: Nephrology No dyspnea No chest pain +Appetite No acute events overnight Vitals, medications, blood work and imaging reviewed in the chart General: Cooperative, Obese HEENT: Atraumatic Neck: Supple Lung: Normal respiratory effort Cardiovascular: Regular rate/rhythm, Edema Gastrointestinal: Soft and benign, Non-distended Musculoskeletal: No clubbing, No contractures Integumentary: No rashes, No cyanosis, Erythema Neurological: Normal speech Blood work reviewed in the chart. Imagings Data: EXAM DESCRIPTION: RAD - Chest Single View - 05/24/2021 5:52 pm CLINICAL HISTORY: AMS COMPARISON: Chest Single View dated 05/16/2021; Chest Single View dated 05/15/2021; Chest Single View dated 05/12/2021; Chest Pa And Lat (2 Views) dated 08/26/2017 FINDINGS: Lines: None. Lungs: No evidence of edema or pneumonia. Pleural: No significant pleural effusions or pneumothorax. Cardiac: Cardiomegaly. Bones: No acute fractures. Other: IMPRESSION: No acute cardiopulmonary disease. EXAM DESCRIPTION: CT - Head Brain Wo Cont - 05/24/2021 6:07 pm CLINICAL HISTORY: MENTAL STATUS CHANGE COMPARISON: No comparisons TECHNIQUE: All CT scans are performed using dose optimization technique as appropriate and may include automated exposure control or mA/KV adjustment according to patient size. FINDINGS: No intracranial hemorrhage, hydrocephalus or extra-axial fluid collection.No areas of brain edema or evidence of midline shift. The paranasal sinuses and mastoids are clear. The calvarium is intact. IMPRESSION: No acute intracranial abnormality. Conclusions/Impression: LEOLA in the setting of hypotension -No NSAIDs Hyponatremia -Encourage nutrition HTN -Hold Lisinopril LE Edema -Low sodium diet DM II with hyperglycemia -RISS Moderate malnutrition -Continue Glucerna BID Polycythemia Microcytosis Iron saturation 26% -Monitor H&H
--- NOTE | 2021-06-13 13:58 | P.PN ---
Subjective Date of Service: 06/13/21 Primary Care Provider: unknown Chief Complaint: AMS Subjective: No new changes Physical Examination - Vital Signs Temperature: 97.6 F Blood Pressure: 137/69 Pulse: 88 Respirations: 18 Pulse Ox (%): 92 - Physical Exam General: Alert, In no apparent distress HEENT: Atraumatic, Normocephalic Respiratory: Other (unlaboured breathing) Cardiovascular: No edema Musculoskeletal: Other (generalized weakness) Neurological: Normal speech, Normal affect Assessment And Plan Physician Review: Patient Assessed, Agree with Above Assessment and Plan Physician Review Additional Text: Assessment Patient is a 66-year-old female with a past medical history of bipolar disorder who presented with altered mental status. Her hospital course was marked by generalized weakness, hyponatremia and renal insufficiency. Most of these issues have improved for the most part. She is working with physical therapy and waiting for SNF placement. She is medically cleared Toxicity encephalopathy related to abdominal cellulitis, wound culture positive for Providencia stuartii Acute on chronic respiratory failure Acute on chronic renal disease stage III Hyponatremia Hypotension Hyperlipidemia Acute CHF exacerbation Bipolar disorder Diabetes mellitus type 2 COVID-19 positive Plan: Continue supportive care Transfer to [place] once we obtain acceptance Continue physical therapy while in-house Continue supplemental oxygen. She has been on 4L for several days now DVT prophylaxis: Heparin CODE STATUS: Full code
[2021-06-13 14:17] LABS: Potassium 4.2 mmol/L (3.5-5.1)
[2021-06-13] MEDS ORDERED: BENZONATATE 100 MG CAP PO PRN (17:29)
[2021-06-13] MEDS ORDERED: dexAMETHasone 4 MG TAB PO SCH (18:00)
[2021-06-13] MEDS: ATORVASTATIN 10 MG TAB PO SCH (20:55)
[2021-06-13] MEDS: OLANZapine 10 MG TABLET PO SCH (20:55)
[2021-06-14] MEDS: ACETAMINOPHEN 500 MG TAB PO PRN (00:50)
[2021-06-14] MEDS: HEPARIN 5000 UNIT/ML 1 ML VIAL SQ SCH ×3 (00:50→17:30)
[2021-06-14 04:27] LABS: Potassium 3.9 mmol/L (3.5-5.1)
[2021-06-14 05:17] LABS: Phosphorus 3.2 mg/dL (2.5-4.9)
[2021-06-14] MEDS: INSULIN -REGULAR HUMAN 50 UNIT/0.5 ML ML SQ SCH ×4 (07:30→21:00)
[2021-06-14] MEDS: NPH (HUMAN) 100 UNITS/ML INSULIN SQ SCH ×2 (08:32→21:00)
[2021-06-14] MEDS: FLUOXETINE 20 MG CAP PO SCH (08:33)
[2021-06-14] MEDS: ZINC SULFATE 220 MG CAP PO SCH (08:33)
[2021-06-14] MEDS: THIAMINE HCL 100 MG TABLET PO SCH (08:33)
[2021-06-14] MEDS: ASCORBIC ACID 500 MG TABLET PO SCH (08:33)
[2021-06-14] MEDS: MIDODRINE HCL 5 MG TABLET PO SCH ×3 (08:34→21:04)
[2021-06-14] MEDS: BUPROPION HCL XL 150 MG TAB PO SCH (08:34)
[2021-06-14] MEDS: MEDIHONEY 44 ML TOPICAL TUBE TOP SCH (08:34)
[2021-06-14] MEDS: VITAMIN D 1000 UNIT TAB PO SCH (08:34)
[2021-06-14] MEDS: GLUCERNA SHAKE 237 ML CAN PO SCH ×2 (08:35→21:00)
--- NOTE | 2021-06-14 10:58 | P.PN ---
Date of Service: 06/14/21 Vital Signs Temp Pulse Resp BP Pulse Ox 97.1 F 77 18 123/75 91 06/14/21 08:00 06/14/21 08:00 06/14/21 08:00 06/14/21 08:00 06/14/21 08:00 Medications Acetaminophen (Acetaminophen 500 Mg Tab) 500 mg PO Q4HP PRN PRN Reason: Pain scale 2-4 (Mild) Last Admin: 06/14/21 00:50 Dose: 500 mg Documented by: Ascorbic Acid (Ascorbic Acid 500 Mg Tablet) 500 mg PO DAILY [facility] Last Admin: 06/14/21 08:33 Dose: 500 mg Documented by: Atorvastatin Calcium (Atorvastatin 10 Mg Tab) 10 mg PO BEDTIME [facility] Last Admin: 06/13/21 20:55 Dose: 10 mg Documented by: Benzonatate (Benzonatate 100 Mg Cap) 200 mg PO TID PRN PRN Reason: COUGH Bupropion HCl (Bupropion Hcl Xl 150 Mg Tab) 150 mg PO DAILY [facility] Last Admin: 06/14/21 08:34 Dose: 150 mg Documented by: Cholecalciferol (Vitamin D 1000 Unit Tab) 1,000 unit PO DAILY [facility] Last Admin: 06/14/21 08:34 Dose: 1,000 unit Documented by: Emollient Gel (Medihoney 44 Ml Topical Tube) 1 appl TOP DAILY [facility] Last Admin: 06/14/21 08:34 Dose: 1 ea Documented by: Enteral Nutritional Formula (Glucerna Shake 237 Ml Can) 237 ml PO BID [facility] Last Admin: 06/14/21 08:35 Dose: 237 ml Documented by: Fluoxetine HCl (Fluoxetine 20 Mg Cap) 40 mg PO DAILY [facility] Last Admin: 06/14/21 08:33 Dose: 40 mg Documented by: Heparin Sodium (Porcine) (Heparin 5000 Unit/Ml 1 Ml Vial) 5,000 unit SQ Q8HR [facility] Last Admin: 06/14/21 08:33 Dose: 5,000 unit Documented by: Hydralazine HCl (Hydralazine Hcl 20 Mg/Ml Vial) 10 mg IV Q6HP PRN PRN Reason: Titrate to SBP (MUST DEFINE) Hydroxyzine HCl (Hydroxyzine Hcl 25 Mg Tab) 50 mg PO TIDP PRN PRN Reason: ANXIETY Last Admin: 06/07/21 09:23 Dose: 50 mg Documented by: Sodium Chloride (Sodium Chloride) 250 mls @ 999 mls/hr IV Q15M PRN PRN Reason: HYPOTENSION Last Admin: 06/03/21 09:33 Dose: 250 mls Documented by: Insulin Human NPH (Nph (Human) 100 Units/Ml Insulin) 20 units SQ BID [facility] Last Admin: 06/14/21 08:32 Dose: 20 units Documented by: Insulin Human Regular (Insulin -Regular Human 50 Unit/0.5 Ml Ml) 0 unit SQ ACHS [facility]; Protocol Last Admin: 06/14/21 07:30 Dose: Not Given Documented by: Midodrine (Midodrine Hcl 5 Mg Tablet) 5 mg PO TID [facility] Last Admin: 06/14/21 08:34 Dose: 5 mg Documented by: Olanzapine (Olanzapine 10 Mg Tablet) 15 mg PO BEDTIME [facility] Last Admin: 06/13/21 20:55 Dose: 15 mg Documented by: Ondansetron HCl (Ondansetron 4 Mg/2 Ml Vial) 4 mg IV Q6HP PRN PRN Reason: NAUSEA / VOMITING Last Admin: 06/12/21 09:09 Dose: 4 mg Documented by: Sodium Chloride (Flush Normal Saline 10 Ml) 10 ml IV BID [facility] Last Admin: 06/14/21 08:34 Dose: 10 ml Documented by: Thiamine HCl (Thiamine Hcl 100 Mg Tablet) 100 mg PO DAILY [facility] Last Admin: 06/14/21 08:33 Dose: 100 mg Documented by: Zinc Sulfate (Zinc Sulfate 220 Mg Cap) 220 mg PO DAILY [facility] Last Admin: 06/14/21 08:33 Dose: 220 mg Documented by: Microbiology Results 05/24/21 17:30 Blood - Blood Aerobic Blood Culture - Final No growth in 5 days. 05/24/21 17:30 Blood - Blood Anaerobic Blood Culture - Final No growth in 5 days. 05/24/21 17:40 Blood - Blood Aerobic Blood Culture - Final No growth in 5 days. 05/24/21 17:40 Blood - Blood Anaerobic Blood Culture - Final No growth in 5 days. 05/24/21 19:00 Wound - Left Abdomen Gram Stain - Final 05/24/21 19:00 Wound - Left Abdomen Culture & Sensitivity - Final Providencia Stuartii Assessment/ Plan: Nephrology No dyspnea No chest pain +Appetite No acute events overnight Vitals, medications, blood work and imaging reviewed in the chart General: Cooperative, Obese HEENT: Atraumatic Neck: Supple Lung: Normal respiratory effort Cardiovascular: Regular rate/rhythm, Edema Gastrointestinal: Soft and benign, Non-distended Musculoskeletal: No clubbing, No contractures Integumentary: No rashes, No cyanosis, Erythema Neurological: Normal speech Blood work reviewed in the chart. Imagings Data: EXAM DESCRIPTION: RAD - Chest Single View - 05/24/2021 5:52 pm CLINICAL HISTORY: AMS COMPARISON: Chest Single View dated 05/16/2021; Chest Single View dated 05/15/2021; Chest Single View dated 05/12/2021; Chest Pa And Lat (2 Views) dated 08/26/2017 FINDINGS: Lines: None. Lungs: No evidence of edema or pneumonia. Pleural: No significant pleural effusions or pneumothorax. Cardiac: Cardiomegaly. Bones: No acute fractures. Other: IMPRESSION: No acute cardiopulmonary disease. EXAM DESCRIPTION: CT - Head Brain Wo Cont - 05/24/2021 6:07 pm CLINICAL HISTORY: MENTAL STATUS CHANGE COMPARISON: No comparisons TECHNIQUE: All CT scans are performed using dose optimization technique as appropriate and may include automated exposure control or mA/KV adjustment according to patient size. FINDINGS: No intracranial hemorrhage, hydrocephalus or extra-axial fluid collection.No areas of brain edema or evidence of midline shift. The paranasal sinuses and mastoids are clear. The calvarium is intact. IMPRESSION: No acute intracranial abnormality. Conclusions/Impression: LEOLA in the setting of hypotension -No NSAIDs Hyponatremia -Encourage nutrition HTN -Hold Lisinopril LE Edema -Low sodium diet DM II with hyperglycemia -RISS Moderate malnutrition -Continue Glucerna BID Polycythemia Microcytosis Iron saturation 26% -Monitor H&H
--- NOTE | 2021-06-14 15:37 | P.PN ---
Subjective Date of Service: 06/14/21 Primary Care Provider: unknown Chief Complaint: AMS Subjective: No new changes, Ambulating Physical Examination - Vital Signs Temperature: 97.7 F Blood Pressure: 138/75 Pulse: 84 Respirations: 18 Pulse Ox (%): 92 - Physical Exam General: In no apparent distress, Cooperative, Obese HEENT: Atraumatic, Normocephalic Neurological: Normal speech, Normal affect Assessment And Plan Physician Review: Patient Assessed, Agree with Above Assessment and Plan Physician Review Additional Text: Assessment Patient is a 66-year-old female with a past medical history of bipolar disorder who presented with altered mental status. Her hospital course was marked by generalized weakness, hyponatremia and renal insufficiency. Most of these issues have improved for the most part. She is working with physical therapy and waiting for SNF placement. She is medically cleared. No business change manager the past 24 hours. Toxicity encephalopathy related to abdominal cellulitis, wound culture positive for Providencia stuartii Acute on chronic respiratory failure Acute on chronic renal disease stage III Hyponatremia Hypotension Hyperlipidemia Acute CHF exacerbation Bipolar disorder Diabetes mellitus type 2 COVID-19 positive Plan: Continue physical therapy Transfer to [place] once we obtain acceptance Continue supplemental oxygen. She has been on 4L for several days now. Wean off as tolerated DVT prophylaxis: Heparin CODE STATUS: Full code
[2021-06-14 16:20] LABS: Magnesium 1.9
[2021-06-14] MEDS: ATORVASTATIN 10 MG TAB PO SCH (21:04)
[2021-06-15] MEDS: HEPARIN 5000 UNIT/ML 1 ML VIAL SQ SCH ×3 (00:11→18:13)
[2021-06-15] MEDS: ZINC SULFATE 220 MG CAP PO SCH (07:45)
[2021-06-15] MEDS: VITAMIN D 1000 UNIT TAB PO SCH (07:45)
[2021-06-15] MEDS: hydrOXYzine HCL 25 MG TAB PO PRN (07:45)
[2021-06-15] MEDS: FLUOXETINE 20 MG CAP PO SCH (07:45)
[2021-06-15] MEDS: MIDODRINE HCL 5 MG TABLET PO SCH ×3 (07:45→21:19)
[2021-06-15] MEDS: THIAMINE HCL 100 MG TABLET PO SCH (07:45)
[2021-06-15] MEDS: BUPROPION HCL XL 150 MG TAB PO SCH (07:46)
[2021-06-15] MEDS: MEDIHONEY 44 ML TOPICAL TUBE TOP SCH (07:46)
[2021-06-15] MEDS: ASCORBIC ACID 500 MG TABLET PO SCH (07:46)
[2021-06-15] MEDS: GLUCERNA SHAKE 237 ML CAN PO SCH ×2 (07:47→21:00)
[2021-06-15] MEDS: INSULIN -REGULAR HUMAN 50 UNIT/0.5 ML ML SQ SCH ×4 (09:11→21:00)
[2021-06-15] MEDS: NPH (HUMAN) 100 UNITS/ML INSULIN SQ SCH ×2 (09:12→21:00)
--- NOTE | 2021-06-15 12:56 | P.PN ---
Subjective Date of Service: 06/15/21 Primary Care Provider: unknown Chief Complaint: AMS Subjective: No new changes, Improving (Patient continues to participate in physical therapy. She has been medically clear for several days now. She is pending placement.) Physical Examination - Vital Signs Temperature: 97.6 F Blood Pressure: 138/61 Pulse: 72 Respirations: 17 Pulse Ox (%): 94 - Physical Exam General: Alert, In no apparent distress, Cooperative, Obese HEENT: Atraumatic, Normocephalic Respiratory: Other (Unlabored breathing) Neurological: Normal speech, Normal affect Assessment And Plan Physician Review: Patient Assessed, Agree with Above Assessment and Plan Physician Review Additional Text: Assessment Patient is a 66-year-old female with a past medical history of bipolar disorder who presented with altered mental status. Her hospital course was marked by generalized weakness, hyponatremia and renal insufficiency. Most of these issues have improved for the most part. She is working with physical therapy and waiting for SNF placement. She is medically cleared. 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 Toxicity encephalopathy related to abdominal cellulitis, wound culture positive for Providencia stuartii Acute on chronic respiratory failure Acute on chronic renal disease stage III Hyponatremia Hypotension Hyperlipidemia Acute CHF exacerbation Bipolar disorder Diabetes mellitus type 2 COVID-19 positive Plan: No significant change of plan. Patient has been medically cleared, pending placement. Continue physical therapy while in-house Transfer to [place] once we obtain acceptance Continue supplemental oxygen. She has been on 4L for several days now. Wean off as tolerated DVT prophylaxis: Heparin CODE STATUS: Full code
[2021-06-15] MEDS ORDERED: OLANZapine 10 MG TABLET PO SCH (21:00)
[2021-06-15] MEDS: OLANZAPINE 15 MG PO SCH (21:00)
[2021-06-15] MEDS ORDERED: OLANZapine 2.5 MG TAB PO SCH (21:00)
[2021-06-15] MEDS: ATORVASTATIN 10 MG TAB PO SCH (21:19)
--- NOTE | 2021-06-15 21:23 | P.PN ---
Date of Service: 06/15/21 Vital Signs Temp Pulse Resp BP Pulse Ox 99.1 F 77 19 132/58 L 92 06/15/21 20:00 06/15/21 20:00 06/15/21 20:00 06/15/21 20:00 06/15/21 20:00 Medications Acetaminophen (Acetaminophen 500 Mg Tab) 500 mg PO Q4HP PRN PRN Reason: Pain scale 2-4 (Mild) Last Admin: 06/14/21 00:50 Dose: 500 mg Documented by: Ascorbic Acid (Ascorbic Acid 500 Mg Tablet) 500 mg PO DAILY [facility] Last Admin: 06/15/21 07:46 Dose: 500 mg Documented by: Atorvastatin Calcium (Atorvastatin 10 Mg Tab) 10 mg PO BEDTIME [facility] Last Admin: 06/15/21 21:19 Dose: 10 mg Documented by: Benzonatate (Benzonatate 100 Mg Cap) 200 mg PO TID PRN PRN Reason: COUGH Last Admin: 06/15/21 07:46 Dose: 200 mg Documented by: Bupropion HCl (Bupropion Hcl Xl 150 Mg Tab) 150 mg PO DAILY [facility] Last Admin: 06/15/21 07:46 Dose: 150 mg Documented by: Cholecalciferol (Vitamin D 1000 Unit Tab) 1,000 unit PO DAILY [facility] Last Admin: 06/15/21 07:45 Dose: 1,000 unit Documented by: Emollient Gel (Medihoney 44 Ml Topical Tube) 1 appl TOP DAILY [facility] Last Admin: 06/15/21 07:46 Dose: 1 ea Documented by: Enteral Nutritional Formula (Glucerna Shake 237 Ml Can) 237 ml PO BID [facility] Last Admin: 06/15/21 21:00 Dose: 237 ml Documented by: Fluoxetine HCl (Fluoxetine 20 Mg Cap) 40 mg PO DAILY [facility] Last Admin: 06/15/21 07:45 Dose: 40 mg Documented by: Heparin Sodium (Porcine) (Heparin 5000 Unit/Ml 1 Ml Vial) 5,000 unit SQ Q8HR [facility] Last Admin: 06/15/21 18:13 Dose: 5,000 unit Documented by: Home Med (Home Med [Olanzapine 15 Mg Tabs]) 1 ea PO BEDTIME [facility] Last Admin: 06/15/21 21:00 Dose: 1 ea Documented by: Hydralazine HCl (Hydralazine Hcl 20 Mg/Ml Vial) 10 mg IV Q6HP PRN PRN Reason: Titrate to SBP (MUST DEFINE) Hydroxyzine HCl (Hydroxyzine Hcl 25 Mg Tab) 50 mg PO TIDP PRN PRN Reason: ANXIETY Last Admin: 06/15/21 07:45 Dose: 50 mg Documented by: Sodium Chloride (Sodium Chloride) 250 mls @ 999 mls/hr IV Q15M PRN PRN Reason: HYPOTENSION Last Admin: 06/03/21 09:33 Dose: 250 mls Documented by: Insulin Human NPH (Nph (Human) 100 Units/Ml Insulin) 20 units SQ BID [facility] Last Admin: 06/15/21 21:00 Dose: Not Given Documented by: Insulin Human Regular (Insulin -Regular Human 50 Unit/0.5 Ml Ml) 0 unit SQ ACHS [facility]; Protocol Last Admin: 06/15/21 21:00 Dose: Not Given Documented by: Midodrine (Midodrine Hcl 5 Mg Tablet) 5 mg PO TID [facility] Last Admin: 06/15/21 21:19 Dose: 5 mg Documented by: Ondansetron HCl (Ondansetron 4 Mg/2 Ml Vial) 4 mg IV Q6HP PRN PRN Reason: NAUSEA / VOMITING Last Admin: 06/12/21 09:09 Dose: 4 mg Documented by: Sodium Chloride (Flush Normal Saline 10 Ml) 10 ml IV BID [facility] Last Admin: 06/15/21 21:00 Dose: 10 ml Documented by: Thiamine HCl (Thiamine Hcl 100 Mg Tablet) 100 mg PO DAILY [facility] Last Admin: 06/15/21 07:45 Dose: 100 mg Documented by: Zinc Sulfate (Zinc Sulfate 220 Mg Cap) 220 mg PO DAILY [facility] Last Admin: 06/15/21 07:45 Dose: 220 mg Documented by: Microbiology Results 05/24/21 17:30 Blood - Blood Aerobic Blood Culture - Final No growth in 5 days. 05/24/21 17:30 Blood - Blood Anaerobic Blood Culture - Final No growth in 5 days. 05/24/21 17:40 Blood - Blood Aerobic Blood Culture - Final No growth in 5 days. 05/24/21 17:40 Blood - Blood Anaerobic Blood Culture - Final No growth in 5 days. 05/24/21 19:00 Wound - Left Abdomen Gram Stain - Final 05/24/21 19:00 Wound - Left Abdomen Culture & Sensitivity - Final Providencia Stuartii Assessment/ Plan: Nephrology No dyspnea No chest pain +Appetite No acute events overnight Vitals, medications, blood work and imaging reviewed in the chart General: Cooperative, Obese HEENT: Atraumatic Neck: Supple Lung: Normal respiratory effort Cardiovascular: Regular rate/rhythm, Edema Gastrointestinal: Soft and benign, Non-distended Musculoskeletal: No clubbing, No contractures Integumentary: No rashes, No cyanosis, Erythema Neurological: Normal speech Blood work reviewed in the chart. Imagings Data: EXAM DESCRIPTION: RAD - Chest Single View - 05/24/2021 5:52 pm CLINICAL HISTORY: AMS COMPARISON: Chest Single View dated 05/16/2021; Chest Single View dated 05/15/2021; Chest Single View dated 05/12/2021; Chest Pa And Lat (2 Views) dated 08/26/2017 FINDINGS: Lines: None. Lungs: No evidence of edema or pneumonia. Pleural: No significant pleural effusions or pneumothorax. Cardiac: Cardiomegaly. Bones: No acute fractures. Other: IMPRESSION: No acute cardiopulmonary disease. EXAM DESCRIPTION: CT - Head Brain Wo Cont - 05/24/2021 6:07 pm CLINICAL HISTORY: MENTAL STATUS CHANGE COMPARISON: No comparisons TECHNIQUE: All CT scans are performed using dose optimization technique as appropriate and may include automated exposure control or mA/KV adjustment according to patient size. FINDINGS: No intracranial hemorrhage, hydrocephalus or extra-axial fluid beny ection.No areas of brain edema or evidence of midline shift. The paranasal sinuses and mastoids are clear. The calvarium is intact. IMPRESSION: No acute intracranial abnormality. Conclusions/Impression: LEOLA in the setting of hypotension -No NSAIDs Hyponatremia -Encourage nutrition HTN -Hold Lisinopril -Continue Midodrine LE Edema -Low sodium diet DM II with hyperglycemia -RISS Moderate malnutrition -Continue Glucerna BID Polycythemia Microcytosis Iron saturation 26% -Monitor H&H
[2021-06-16] MEDS: HEPARIN 5000 UNIT/ML 1 ML VIAL SQ SCH ×3 (01:23→17:39)
[2021-06-16] MEDS: INSULIN -REGULAR HUMAN 50 UNIT/0.5 ML ML SQ SCH ×4 (07:30→20:53)
[2021-06-16] MEDS: FLUOXETINE 20 MG CAP PO SCH (08:09)
[2021-06-16] MEDS: BUPROPION HCL XL 150 MG TAB PO SCH (08:09)
[2021-06-16] MEDS: ZINC SULFATE 220 MG CAP PO SCH (08:10)
[2021-06-16] MEDS: VITAMIN D 1000 UNIT TAB PO SCH (08:10)
[2021-06-16] MEDS: THIAMINE HCL 100 MG TABLET PO SCH (08:10)
[2021-06-16] MEDS: MIDODRINE HCL 5 MG TABLET PO SCH ×3 (08:10→20:53)
[2021-06-16] MEDS: ASCORBIC ACID 500 MG TABLET PO SCH (08:10)
[2021-06-16] MEDS: hydrOXYzine HCL 25 MG TAB PO PRN (08:11)
[2021-06-16] MEDS: NPH (HUMAN) 100 UNITS/ML INSULIN SQ SCH ×2 (08:11→20:53)
[2021-06-16] MEDS: MEDIHONEY 44 ML TOPICAL TUBE TOP SCH (08:12)
[2021-06-16] MEDS: GLUCERNA SHAKE 237 ML CAN PO SCH ×2 (08:43→20:53)
--- NOTE | 2021-06-16 11:01 | P.PN ---
Subjective Date of Service: 06/16/21 Primary Care Provider: unknown Chief Complaint: AMS Subjective: No new changes (No acute events overnight.) Physical Examination - Vital Signs Temperature: 97.8 F Blood Pressure: 117/60 Pulse: 87 Respirations: 19 Pulse Ox (%): 93 - Physical Exam General: In no apparent distress, Cooperative, Obese HEENT: Atraumatic, Normocephalic Respiratory: Other (speaking in full sentences) Cardiovascular: No edema Neurological: Normal speech, Normal affect Assessment And Plan Physician Review: Patient Assessed, Agree with Above Assessment and Plan Physician Review Additional Text: Assessment Patient is a 66-year-old female with a past medical history of bipolar disorder who presented with altered mental status. Her hospital course was marked by generalized weakness, hyponatremia and renal insufficiency. Most of these issues have improved for the most part. She is working with physical therapy and waiting for SNF placement. She is medically cleared. 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 Toxicity encephalopathy related to abdominal cellulitis, wound culture positive for Providencia stuartii Acute on chronic respiratory failure Acute on chronic renal disease stage III Hyponatremia Hypotension Hyperlipidemia Acute CHF exacerbation Bipolar disorder Diabetes mellitus type 2 COVID-19 positive Plan: No significant change of plan. Patient has been medically cleared, pending placement. Continue physical therapy while in-house Transfer to [place] once we obtain acceptance Continue supplemental oxygen. She has been on 4L for several days now. Wean off as tolerated DVT prophylaxis: Heparin CODE STATUS: Full code
[2021-06-16] MEDS: ATORVASTATIN 10 MG TAB PO SCH (20:53)
[2021-06-16] MEDS: OLANZAPINE 15 MG PO SCH (20:53)
[2021-06-17] MEDS: HEPARIN 5000 UNIT/ML 1 ML VIAL SQ SCH ×3 (07:02→17:06)
[2021-06-17 08:00] LABS: Absolute Lymphocytes (CBC) 1.4 K/uL (0.7-4.9); Hematocrit 38.4 % (36.0-45.0); Lymphocytes % 13.5 % (15.3-44.8); MPV 7.4 fL (7.6-11.3); RBC Red Blood Cell Count 4.65 M/uL (3.86-4.86)
[2021-06-17] MEDS: ZINC SULFATE 220 MG CAP PO SCH (08:02)
[2021-06-17] MEDS: VITAMIN D 1000 UNIT TAB PO SCH (08:02)
[2021-06-17] MEDS: FLUOXETINE 20 MG CAP PO SCH (08:02)
[2021-06-17] MEDS: BUPROPION HCL XL 150 MG TAB PO SCH (08:02)
[2021-06-17] MEDS: ASCORBIC ACID 500 MG TABLET PO SCH (08:02)
[2021-06-17] MEDS: THIAMINE HCL 100 MG TABLET PO SCH (08:03)
[2021-06-17] MEDS: hydrOXYzine HCL 25 MG TAB PO PRN (08:03)
[2021-06-17] MEDS: INSULIN -REGULAR HUMAN 50 UNIT/0.5 ML ML SQ SCH ×4 (08:03→21:23)
[2021-06-17] MEDS: NPH (HUMAN) 100 UNITS/ML INSULIN SQ SCH ×3 (08:03→21:00)
[2021-06-17] MEDS: MEDIHONEY 44 ML TOPICAL TUBE TOP SCH (08:04)
[2021-06-17] MEDS: GLUCERNA SHAKE 237 ML CAN PO SCH ×2 (08:04→21:00)
[2021-06-17] MEDS: MIDODRINE HCL 5 MG TABLET PO SCH ×3 (08:11→21:22)
[2021-06-17] MEDS: ONDANSETRON 4 MG/2 ML VIAL IV PRN (08:13)
[2021-06-17 08:15] LABS: BUN Blood Urea Nitrogen 9 mg/dL (7-18); Bicarbonate 30 mmol/L (21-32); Glucose Level 178 mg/dL (74-106); Sodium Level 137 mmol/L (136-145)
--- NOTE | 2021-06-17 11:07 | P.PN ---
Subjective Date of Service: 06/17/21 Primary Care Provider: unknown Chief Complaint: AMS Subjective: No new changes, Improving (Patient is doing well except for mild nausea. She vomited today) Physical Examination - Vital Signs Temperature: 97.7 F Blood Pressure: 136/74 Pulse: 72 Respirations: 16 Pulse Ox (%): 91 - Physical Exam General: In no apparent distress, Cooperative, Obese, Other (physically deconditioned) HEENT: Atraumatic, Normocephalic Respiratory: Other (Not dyspneic) Cardiovascular: No edema Musculoskeletal: No clubbing, No swelling, No contractures Neurological: Normal speech, Normal affect Assessment And Plan Physician Review: Patient Assessed, Agree with Above Assessment and Plan Physician Review Additional Text: Assessment Patient is a 66-year-old female with a past medical history of bipolar disorder who presented with altered mental status. Her hospital course was marked by generalized weakness, hyponatremia and renal insufficiency. Most of these issues are resolved. She is working with physical therapy and waiting for SNF placement. She is medically cleared. One episode of nausea and vomiting over the past 24 hours Toxicity encephalopathy related to abdominal cellulitis, wound culture positive for Providencia stuartii Acute on chronic respiratory failure Acute on chronic renal disease stage III Hyponatremia Hypotension Hyperlipidemia Acute CHF exacerbation Bipolar disorder Diabetes mellitus type 2 COVID-19 positive Plan: Zofran for nausea Encourage patient to sit in chair for meals Continue physical therapy while in-house Transfer to [place] once we obtain acceptance Continue supplemental oxygen. She has been on 4L for several days now. Wean off as tolerated DVT prophylaxis: Heparin CODE STATUS: Full code
[2021-06-17] MEDS: OLANZAPINE 15 MG PO SCH (21:00)
[2021-06-17] MEDS: ATORVASTATIN 10 MG TAB PO SCH (21:22)
[2021-06-18] MEDS: HEPARIN 5000 UNIT/ML 1 ML VIAL SQ SCH ×3 (01:00→18:15)
[2021-06-18] MEDS: INSULIN -REGULAR HUMAN 50 UNIT/0.5 ML ML SQ SCH ×4 (07:30→20:14)
[2021-06-18] MEDS: GLUCERNA SHAKE 237 ML CAN PO SCH ×2 (08:56→20:14)
[2021-06-18] MEDS: NPH (HUMAN) 100 UNITS/ML INSULIN SQ SCH ×2 (08:59→21:00)
[2021-06-18] MEDS: MEDIHONEY 44 ML TOPICAL TUBE TOP SCH (08:59)
[2021-06-18] MEDS: THIAMINE HCL 100 MG TABLET PO SCH (09:00)
[2021-06-18] MEDS: FLUOXETINE 20 MG CAP PO SCH (09:01)
[2021-06-18] MEDS: ASCORBIC ACID 500 MG TABLET PO SCH (09:01)
[2021-06-18] MEDS: MIDODRINE HCL 5 MG TABLET PO SCH ×3 (09:01→20:17)
[2021-06-18] MEDS: VITAMIN D 1000 UNIT TAB PO SCH (09:02)
[2021-06-18] MEDS: ZINC SULFATE 220 MG CAP PO SCH (09:02)
[2021-06-18] MEDS: BUPROPION HCL XL 150 MG TAB PO SCH (09:02)
[2021-06-18] MEDS: OLANZAPINE 15 MG PO SCH (20:14)
[2021-06-18] MEDS: ATORVASTATIN 10 MG TAB PO SCH (20:15)
[2021-06-18] MEDS: CLOTRIMAZ/BETAMETH CREAM 15GM TOP SCH (20:15)
[2021-06-18] MEDS: ZINC OXIDE 20% OINTMENT 60gm TOP SCH (20:17)
--- NOTE | 2021-06-18 20:56 | P.PN ---
Date of Service: 06/18/21 Vital Signs Temp Pulse Resp BP Pulse Ox 97.7 F 69 20 120/56 L 92 06/18/21 20:00 06/18/21 20:00 06/18/21 20:00 06/18/21 20:00 06/18/21 20:00 Medications Acetaminophen (Acetaminophen 500 Mg Tab) 500 mg PO Q4HP PRN PRN Reason: Pain scale 2-4 (Mild) Last Admin: 06/14/21 00:50 Dose: 500 mg Documented by: Ascorbic Acid (Ascorbic Acid 500 Mg Tablet) 500 mg PO DAILY [facility] Last Admin: 06/18/21 09:01 Dose: 500 mg Documented by: Atorvastatin Calcium (Atorvastatin 10 Mg Tab) 10 mg PO BEDTIME [facility] Last Admin: 06/18/21 20:15 Dose: 10 mg Documented by: Benzonatate (Benzonatate 100 Mg Cap) 200 mg PO TID PRN PRN Reason: COUGH Last Admin: 06/15/21 07:46 Dose: 200 mg Documented by: Bupropion HCl (Bupropion Hcl Xl 150 Mg Tab) 150 mg PO DAILY [facility] Last Admin: 06/18/21 09:02 Dose: 150 mg Documented by: Cholecalciferol (Vitamin D 1000 Unit Tab) 1,000 unit PO DAILY [facility] Last Admin: 06/18/21 09:02 Dose: 1,000 unit Documented by: Clotrimazole (Clotrimaz/Betameth Cream 15gm) 1 appl TOP BID [facility] Last Admin: 06/18/21 20:15 Dose: 1 anthony Documented by: Emollient Gel (Medihoney 44 Ml Topical Tube) 1 appl TOP DAILY [facility] Last Admin: 06/18/21 08:59 Dose: 1 ea Documented by: Enteral Nutritional Formula (Glucerna Shake 237 Ml Can) 237 ml PO BID [facility] Last Admin: 06/18/21 20:14 Dose: 237 ml Documented by: Fluconazole (Fluconazole 100 Mg Tab) 200 mg PO DAILY [facility]; Protocol Stop: 06/25/21 09:01 Fluoxetine HCl (Fluoxetine 20 Mg Cap) 40 mg PO DAILY [facility] Last Admin: 06/18/21 09:01 Dose: 40 mg Documented by: Heparin Sodium (Porcine) (Heparin 5000 Unit/Ml 1 Ml Vial) 5,000 unit SQ Q8HR [facility] Last Admin: 06/18/21 18:15 Dose: 5,000 unit Documented by: Home Med (Home Med [Olanzapine 15 Mg Tabs]) 1 ea PO BEDTIME [facility] Last Admin: 06/18/21 20:14 Dose: 1 ea Documented by: Hydralazine HCl (Hydralazine Hcl 20 Mg/Ml Vial) 10 mg IV Q6HP PRN PRN Reason: Titrate to SBP (MUST DEFINE) Hydroxyzine HCl (Hydroxyzine Hcl 25 Mg Tab) 50 mg PO TIDP PRN PRN Reason: ANXIETY Last Admin: 06/17/21 08:03 Dose: 50 mg Documented by: Sodium Chloride (Sodium Chloride) 250 mls @ 999 mls/hr IV Q15M PRN PRN Reason: HYPOTENSION Last Admin: 06/03/21 09:33 Dose: 250 mls Documented by: Insulin Human NPH (Nph (Human) 100 Units/Ml Insulin) 20 units SQ BID [facility] Last Admin: 06/18/21 08:59 Dose: 20 units Documented by: Insulin Human Regular (Insulin -Regular Human 50 Unit/0.5 Ml Ml) 0 unit SQ ACHS [facility]; Protocol Last Admin: 06/18/21 20:14 Dose: 6 unit Documented by: Midodrine (Midodrine Hcl 5 Mg Tablet) 5 mg PO TID [facility] Last Admin: 06/18/21 20:17 Dose: 5 mg Documented by: Ondansetron HCl (Ondansetron 4 Mg/2 Ml Vial) 4 mg IV Q6HP PRN PRN Reason: NAUSEA / VOMITING Last Admin: 06/17/21 08:13 Dose: 4 mg Documented by: Sodium Chloride (Flush Normal Saline 10 Ml) 10 ml IV BID [facility] Last Admin: 06/18/21 08:59 Dose: 10 ml Documented by: Thiamine HCl (Thiamine Hcl 100 Mg Tablet) 100 mg PO DAILY [facility] Last Admin: 06/18/21 09:00 Dose: 100 mg Documented by: Zinc Oxide (Zinc Oxide 20% Ointment 60gm) 1 appl TOP BID [facility] Last Admin: 06/18/21 20:17 Dose: 1 appl Documented by: Zinc Sulfate (Zinc Sulfate 220 Mg Cap) 220 mg PO DAILY [facility] Last Admin: 06/18/21 09:02 Dose: 220 mg Documented by: Microbiology Results 05/24/21 17:30 Blood - Blood Aerobic Blood Culture - Final No growth in 5 days. 05/24/21 17:30 Blood - Blood Anaerobic Blood Culture - Final No growth in 5 days. 05/24/21 17:40 Blood - Blood Aerobic Blood Culture - Final No growth in 5 days. 05/24/21 17:40 Blood - Blood Anaerobic Blood Culture - Final No growth in 5 days. 05/24/21 19:00 Wound - Left Abdomen Gram Stain - Final 05/24/21 19:00 Wound - Left Abdomen Culture & Sensitivity - Final Providencia Stuartii Assessment/ Plan: Nephrology No dyspnea No chest pain +Appetite Feeling better sitting in the chair No acute events overnight Vitals, medications, blood work and imaging reviewed in the chart General: Cooperative, Obese HEENT: Atraumatic Neck: Supple Lung: Normal respiratory effort Cardiovascular: Regular rate/rhythm, Edema Gastrointestinal: Soft and benign, Non-distended Musculoskeletal: No clubbing, No contractures Integumentary: No rashes, No cyanosis, Erythema Neurological: Normal speech Blood work reviewed in the chart. Imagings Data: EXAM DESCRIPTION: RAD - Chest Single View - 05/24/2021 5:52 pm CLINICAL HISTORY: AMS COMPARISON: Chest Single View dated 05/16/2021; Chest Single View dated 05/15/2021; Chest Single View dated 05/12/2021; Chest Pa And Lat (2 Views) dated 08/26/2017 FINDINGS: Lines: None. Lungs: No evidence of edema or pneumonia. Pleural: No significant pleural effusions or pneumothorax. Cardiac: Cardiomegaly. Bones: No acute fractures. Other: IMPRESSION: No acute cardiopulmonary disease. EXAM DESCRIPTION: CT - Head Brain Wo Cont - 05/24/2021 6:07 pm CLINICAL HISTORY: MENTAL STATUS CHANGE COMPARISON: No comparisons TECHNIQUE: All CT scans are performed using dose optimization technique as appropriate and may include automated exposure control or mA/KV adjustment according to patient size. FINDINGS: No intracranial hemorrhage, hydrocephalus or extra-axial fluid collection.No areas of brain edema or evidence of midline shift. The paranasal sinuses and mastoids are clear. The calvarium is intact. IMPRESSION: No acute intracranial abnormality. Conclusions/Impression: LEOLA in the setting of hypotension -No NSAIDs Hyponatremia -Encourage nutrition HTN -Hold Lisinopril -Continue Midodrine LE Edema -Low sodium diet DM II with hyperglycemia -RISS Moderate malnutrition -Continue Glucerna BID Polycythemia Microcytosis Iron saturation 26% -Monitor H&H
[2021-06-19] MEDS: HEPARIN 5000 UNIT/ML 1 ML VIAL SQ SCH ×3 (00:19→16:18)
[2021-06-19] MEDS: INSULIN -REGULAR HUMAN 50 UNIT/0.5 ML ML SQ SCH ×4 (07:30→21:56)
[2021-06-19] MEDS: GLUCERNA SHAKE 237 ML CAN PO SCH ×2 (09:00→21:00)
[2021-06-19] MEDS: ZINC OXIDE 20% OINTMENT 60gm TOP SCH ×2 (09:00→21:00)
[2021-06-19] MEDS: MEDIHONEY 44 ML TOPICAL TUBE TOP SCH (09:00)
[2021-06-19] MEDS: NPH (HUMAN) 100 UNITS/ML INSULIN SQ SCH ×2 (09:00→21:00)
[2021-06-19] MEDS: FLUCONAZOLE 100 MG TAB PO SCH (09:57)
[2021-06-19] MEDS: BUPROPION HCL XL 150 MG TAB PO SCH (09:57)
[2021-06-19] MEDS: VITAMIN D 1000 UNIT TAB PO SCH (09:57)
[2021-06-19] MEDS: ASCORBIC ACID 500 MG TABLET PO SCH (09:57)
[2021-06-19] MEDS: FLUOXETINE 20 MG CAP PO SCH (09:57)
[2021-06-19] MEDS: CLOTRIMAZ/BETAMETH CREAM 15GM TOP SCH ×2 (09:58→21:58)
[2021-06-19] MEDS: THIAMINE HCL 100 MG TABLET PO SCH (09:58)
[2021-06-19] MEDS: ZINC SULFATE 220 MG CAP PO SCH (09:58)
[2021-06-19] MEDS: MIDODRINE HCL 5 MG TABLET PO SCH ×3 (09:58→21:56)
--- NOTE | 2021-06-19 11:13 | P.PN ---
Date of Service: 06/18/21 Subjective Patient denies any new changes. Physical Examination - Physical Exam General: Oriented x3, Obese; Respiratory: Clear to auscultation bilaterally Cardiovascular: No edema, Regular rate/rhythm, Normal S1 S2 Gastrointestinal: Normal bowel sounds, No tenderness Integumentary: Erythema has resolved; minimal edema Neurological: Generalized weakness and no focal deficits Assessment and Plan - Problems (Diagnosis) (1) Bipolar disorder Current Visit: Yes Status: Chronic Qualifiers: Active/Remission status: remission status unspecified Qualified Code(s): F31.9 - Bipolar disorder, unspecified (2) Hyponatremia with acute kidney injury Current Visit: Yes Status: Acute (3) AMS (altered mental status) Current Visit: Yes Status: Acute Qualifiers: Altered mental status type: unspecified Qualified Code(s): R41.82 - Altered mental status, unspecified (4) Cellulitis Current Visit: Yes Status: Acute Qualifiers: Site of cellulitis: trunk Site of cellulitis of trunk: groin Qualified Code(s): L03.314 - Cellulitis of groin (5) HLD (hyperlipidemia) Current Visit: No Status: Chronic Qualifiers: Hyperlipidemia type: unspecified Qualified Code(s): E78.5 - Hyperlipidemia, unspecified (6) HTN (hypertension) Current Visit: No Status: Chronic Qualifiers: Hypertension type: primary hypertension Qualified Code(s): I10 - Essential (primary) hypertension (7) T2DM (type 2 diabetes mellitus) Current Visit: No Status: Chronic Qualifiers: Diabetes mellitus calculator operator insulin use: unspecified intermediate insulin use status Diabetes mellitus complication status: without complication Qualified Code(s): E11.9 - Type 2 diabetes mellitus without complications - Plan Patient continues to improve. Continue with plan of care as mentioned below: -Renal function is stable -oral antibiotics -Strict blood sugar and blood pressure control -Wean off of O2 -[place] placement pending -Mentation is much better -DVT prophylaxis
--- NOTE | 2021-06-19 11:13 | P.PN ---
Date of Service: 06/19/21 Subjective Patient denies any new changes. Physical Examination - Physical Exam General: Oriented x3, Obese; Respiratory: Clear to auscultation bilaterally Cardiovascular: No edema, Regular rate/rhythm, Normal S1 S2 Gastrointestinal: Normal bowel sounds, No tenderness Integumentary: Erythema has resolved; minimal edema Neurological: Generalized weakness and no focal deficits Assessment and Plan - Problems (Diagnosis) (1) Bipolar disorder Current Visit: Yes Status: Chronic Qualifiers: Active/Remission status: remission status unspecified Qualified Code(s): F31.9 - Bipolar disorder, unspecified (2) Hyponatremia with acute kidney injury Current Visit: Yes Status: Acute (3) AMS (altered mental status) Current Visit: Yes Status: Acute Qualifiers: Altered mental status type: unspecified Qualified Code(s): R41.82 - Altered mental status, unspecified (4) Cellulitis Current Visit: Yes Status: Acute Qualifiers: Site of cellulitis: trunk Site of cellulitis of trunk: groin Qualified Code(s): L03.314 - Cellulitis of groin (5) HLD (hyperlipidemia) Current Visit: No Status: Chronic Qualifiers: Hyperlipidemia type: unspecified Qualified Code(s): E78.5 - Hyperlipidemia, unspecified (6) HTN (hypertension) Current Visit: No Status: Chronic Qualifiers: Hypertension type: primary hypertension Qualified Code(s): I10 - Essential (primary) hypertension (7) T2DM (type 2 diabetes mellitus) Current Visit: No Status: Chronic Qualifiers: Diabetes mellitus terminal carman insulin use: unspecified long-term insulin use status Diabetes mellitus complication status: without complication Qualified Code(s): E11.9 - Type 2 diabetes mellitus without complications - Plan Patient continues to improve. Continue with plan of care as mentioned below: -Renal function is stable -oral antibiotics -Strict blood sugar and blood pressure control -Wean off of O2 -[place] placement pending -Mentation is much better -DVT prophylaxis
--- NOTE | 2021-06-19 21:21 | P.PN ---
Date of Service: 06/19/21 Vital Signs Temp Pulse Resp BP Pulse Ox 97.8 F 68 17 116/54 L 93 06/19/21 19:56 06/19/21 19:56 06/19/21 19:56 06/19/21 19:56 06/19/21 19:56 Medications Acetaminophen (Acetaminophen 500 Mg Tab) 500 mg PO Q4HP PRN PRN Reason: Pain scale 2-4 (Mild) Last Admin: 06/14/21 00:50 Dose: 500 mg Documented by: Ascorbic Acid (Ascorbic Acid 500 Mg Tablet) 500 mg PO DAILY [facility] Last Admin: 06/19/21 09:57 Dose: 500 mg Documented by: Atorvastatin Calcium (Atorvastatin 10 Mg Tab) 10 mg PO BEDTIME [facility] Last Admin: 06/18/21 20:15 Dose: 10 mg Documented by: Benzonatate (Benzonatate 100 Mg Cap) 200 mg PO TID PRN PRN Reason: COUGH Last Admin: 06/15/21 07:46 Dose: 200 mg Documented by: Bupropion HCl (Bupropion Hcl Xl 150 Mg Tab) 150 mg PO DAILY [facility] Last Admin: 06/19/21 09:57 Dose: 150 mg Documented by: Cholecalciferol (Vitamin D 1000 Unit Tab) 1,000 unit PO DAILY [facility] Last Admin: 06/19/21 09:57 Dose: 1,000 unit Documented by: Clotrimazole (Clotrimaz/Betameth Cream 15gm) 1 appl TOP BID [facility] Last Admin: 06/19/21 09:58 Dose: 1 anthony Documented by: Emollient Gel (Medihoney 44 Ml Topical Tube) 1 appl TOP DAILY [facility] Last Admin: 06/19/21 09:00 Dose: 1 ea Documented by: Enteral Nutritional Formula (Glucerna Shake 237 Ml Can) 237 ml PO BID [facility] Last Admin: 06/19/21 09:00 Dose: 237 ml Documented by: Fluconazole (Fluconazole 100 Mg Tab) 200 mg PO DAILY [facility]; Protocol Stop: 06/25/21 09:01 Last Admin: 06/19/21 09:57 Dose: 200 mg Documented by: Fluoxetine HCl (Fluoxetine 20 Mg Cap) 40 mg PO DAILY [facility] Last Admin: 06/19/21 09:57 Dose: 40 mg Documented by: Heparin Sodium (Porcine) (Heparin 5000 Unit/Ml 1 Ml Vial) 5,000 unit SQ Q8HR [facility] Last Admin: 06/19/21 16:18 Dose: 5,000 unit Documented by: Home Med (Home Med [Olanzapine 15 Mg Tabs]) 1 ea PO BEDTIME [facility] Last Admin: 06/18/21 20:14 Dose: 1 ea Documented by: Hydralazine HCl (Hydralazine Hcl 20 Mg/Ml Vial) 10 mg IV Q6HP PRN PRN Reason: Titrate to SBP (MUST DEFINE) Hydroxyzine HCl (Hydroxyzine Hcl 25 Mg Tab) 50 mg PO TIDP PRN PRN Reason: ANXIETY Last Admin: 06/17/21 08:03 Dose: 50 mg Documented by: Sodium Chloride (Sodium Chloride) 250 mls @ 999 mls/hr IV Q15M PRN PRN Reason: HYPOTENSION Last Admin: 06/03/21 09:33 Dose: 250 mls Documented by: Insulin Human NPH (Nph (Human) 100 Units/Ml Insulin) 20 units SQ BID [facility] Last Admin: 06/19/21 09:00 Dose: 20 units Documented by: Insulin Human Regular (Insulin -Regular Human 50 Unit/0.5 Ml Ml) 0 unit SQ ACHS [facility]; Protocol Last Admin: 06/19/21 16:18 Dose: Not Given Documented by: Midodrine (Midodrine Hcl 5 Mg Tablet) 5 mg PO TID [facility] Last Admin: 06/19/21 15:35 Dose: 5 mg Documented by: Ondansetron HCl (Ondansetron 4 Mg/2 Ml Vial) 4 mg IV Q6HP PRN PRN Reason: NAUSEA / VOMITING Last Admin: 06/17/21 08:13 Dose: 4 mg Documented by: Sodium Chloride (Flush Normal Saline 10 Ml) 10 ml IV BID [facility] Last Admin: 06/19/21 09:00 Dose: 10 ml Documented by: Thiamine HCl (Thiamine Hcl 100 Mg Tablet) 100 mg PO DAILY [facility] Last Admin: 06/19/21 09:58 Dose: 100 mg Documented by: Zinc Oxide (Zinc Oxide 20% Ointment 60gm) 1 appl TOP BID [facility] Last Admin: 06/19/21 09:00 Dose: 1 appl Documented by: Zinc Sulfate (Zinc Sulfate 220 Mg Cap) 220 mg PO DAILY [facility] Last Admin: 06/19/21 09:58 Dose: 220 mg Documented by: Microbiology Results 05/24/21 17:30 Blood - Blood Aerobic Blood Culture - Final No growth in 5 days. 01/13/22 17:30 Blood - Blood Anaerobic Blood Culture - Final No growth in 5 days. 05/24/21 17:40 Blood - Blood Aerobic Blood Culture - Final No growth in 5 days. 05/24/21 17:40 Blood - Blood Anaerobic Blood Culture - Final No growth in 5 days. 05/24/21 19:00 Wound - Left Abdomen Gram Stain - Final 05/24/21 19:00 Wound - Left Abdomen Culture & Sensitivity - Final Providencia Stuartii Assessment/ Plan: Nephrology No dyspnea No chest pain +Appetite No acute events overnight Vitals, medications, blood work and imaging reviewed in the chart General: Cooperative, Obese HEENT: Atraumatic Neck: Supple Lung: Normal respiratory effort Cardiovascular: Regular rate/rhythm, Edema Gastrointestinal: Soft and benign, Non-distended Musculoskeletal: No clubbing, No contractures Integumentary: No rashes, No cyanosis, Erythema Neurological: Normal speech Villegas Dark Blood work reviewed in the chart. Imagings Data: EXAM DESCRIPTION: RAD - Chest Single View - 05/24/2021 5:52 pm CLINICAL HISTORY: AMS COMPARISON: Chest Single View dated 05/16/2021; Chest Single View dated 05/15/2021; Chest Single View dated 05/12/2021; Chest Pa And Lat (2 Views) dated 08/26/2017 FINDINGS: Lines: None. Lungs: No evidence of edema or pneumonia. Pleural: No significant pleural effusions or pneumothorax. Cardiac: Cardiomegaly. Bones: No acute fractures. Other: IMPRESSION: No acute cardiopulmonary disease. EXAM DESCRIPTION: CT - Head Brain Wo Cont - 05/24/2021 6:07 pm CLINICAL HISTORY: MENTAL STATUS CHANGE COMPARISON: No comparisons TECHNIQUE: All CT scans are performed using dose optimization technique as appropriate and may include automated exposure control or mA/KV adjustment according to patient size. FINDINGS: No intracranial hemorrhage, hydrocephalus or extra-axial fluid c ollection.No areas of brain edema or evidence of midline shift. The paranasal sinuses and mastoids are clear. The calvarium is intact. IMPRESSION: No acute intracranial abnormality. Conclusions/Impression: [facility]A in the setting of hypotension -No NSAIDs Hyponatremia -Encourage nutrition HTN -Hold Lisinopril -Continue Midodrine LE Edema -Low sodium diet DM II with hyperglycemia -RISS Moderate malnutrition -Continue Glucerna BID Polycythemia Microcytosis Iron saturation 26% -Monitor H&H
[2021-06-19] MEDS: ATORVASTATIN 10 MG TAB PO SCH (21:56)
[2021-06-19] MEDS: OLANZAPINE 15 MG PO SCH (21:56)
[2021-06-20] MEDS: HEPARIN 5000 UNIT/ML 1 ML VIAL SQ SCH ×4 (01:43→16:21)
[2021-06-20 06:51] LABS: BUN Blood Urea Nitrogen 13 mg/dL (7-18); Bicarbonate 31 mmol/L (21-32); Glucose Level 120 mg/dL (74-106); Potassium 3.9 mmol/L (3.5-5.1); Sodium Level 139 mmol/L (136-145)
[2021-06-20] MEDS: INSULIN -REGULAR HUMAN 50 UNIT/0.5 ML ML SQ SCH ×3 (07:30→16:22)
[2021-06-20] MEDS: ASCORBIC ACID 500 MG TABLET PO SCH (08:50)
[2021-06-20] MEDS: FLUOXETINE 20 MG CAP PO SCH (08:50)
[2021-06-20] MEDS: ZINC SULFATE 220 MG CAP PO SCH (08:50)
[2021-06-20] MEDS: VITAMIN D 1000 UNIT TAB PO SCH (08:50)
[2021-06-20] MEDS: BUPROPION HCL XL 150 MG TAB PO SCH (08:50)
[2021-06-20] MEDS: FLUCONAZOLE 100 MG TAB PO SCH (08:50)
[2021-06-20] MEDS: THIAMINE HCL 100 MG TABLET PO SCH (08:50)
[2021-06-20] MEDS: GLUCERNA SHAKE 237 ML CAN PO SCH (08:51)
[2021-06-20] MEDS: MEDIHONEY 44 ML TOPICAL TUBE TOP SCH (08:52)
[2021-06-20] MEDS: NPH (HUMAN) 100 UNITS/ML INSULIN SQ SCH (08:52)
[2021-06-20] MEDS: ZINC OXIDE 20% OINTMENT 60gm TOP SCH (08:52)
[2021-06-20] MEDS: CLOTRIMAZ/BETAMETH CREAM 15GM TOP SCH (08:52)
[2021-06-20] MEDS: MIDODRINE HCL 5 MG TABLET PO SCH ×2 (08:59→13:18)
[2021-06-20] MEDS ORDERED: POTASSIUM CL SA 10 MEQ TAB PO ONE (09:00)
[2021-06-20 09:08] LABS: Absolute Lymphocytes (CBC) 1.5 K/uL (0.7-4.9); Hematocrit 39.7 % (36.0-45.0)
--- NOTE | 2021-06-20 09:45 | P.PN ---
Date of Service: 06/20/21 Vital Signs Temp Pulse Resp BP Pulse Ox 97.5 F 79 18 132/70 94 06/20/21 08:00 06/20/21 08:00 06/20/21 08:00 06/20/21 08:00 06/20/21 08:00 Medications Acetaminophen (Acetaminophen 500 Mg Tab) 500 mg PO Q4HP PRN PRN Reason: Pain scale 2-4 (Mild) Last Admin: 06/14/21 00:50 Dose: 500 mg Documented by: Ascorbic Acid (Ascorbic Acid 500 Mg Tablet) 500 mg PO DAILY [facility] Last Admin: 06/20/21 08:50 Dose: 500 mg Documented by: Atorvastatin Calcium (Atorvastatin 10 Mg Tab) 10 mg PO BEDTIME [facility] Last Admin: 06/19/21 21:56 Dose: 10 mg Documented by: Benzonatate (Benzonatate 100 Mg Cap) 200 mg PO TID PRN PRN Reason: COUGH Last Admin: 06/15/21 07:46 Dose: 200 mg Documented by: Bupropion HCl (Bupropion Hcl Xl 150 Mg Tab) 150 mg PO DAILY [facility] Last Admin: 06/20/21 08:50 Dose: 150 mg Documented by: Cholecalciferol (Vitamin D 1000 Unit Tab) 1,000 unit PO DAILY [facility] Last Admin: 06/20/21 08:50 Dose: 1,000 unit Documented by: Clotrimazole (Clotrimaz/Betameth Cream 15gm) 1 appl TOP BID [facility] Last Admin: 06/20/21 08:52 Dose: 1 anthony Documented by: Emollient Gel (Medihoney 44 Ml Topical Tube) 1 appl TOP DAILY [facility] Last Admin: 06/20/21 08:52 Dose: 1 ea Documented by: Enteral Nutritional Formula (Glucerna Shake 237 Ml Can) 237 ml PO BID [facility] Last Admin: 06/20/21 08:51 Dose: 237 ml Documented by: Fluconazole (Fluconazole 100 Mg Tab) 200 mg PO DAILY [facility]; Protocol Stop: 06/25/21 09:01 Last Admin: 06/20/21 08:50 Dose: 200 mg Documented by: Fluoxetine HCl (Fluoxetine 20 Mg Cap) 40 mg PO DAILY [facility] Last Admin: 06/20/21 08:50 Dose: 40 mg Documented by: Heparin Sodium (Porcine) (Heparin 5000 Unit/Ml 1 Ml Vial) 5,000 unit SQ Q8HR [facility] Last Admin: 06/20/21 08:50 Dose: 5,000 unit Documented by: Home Med (Home Med [Olanzapine 15 Mg Tabs]) 1 ea PO BEDTIME [facility] Last Admin: 06/19/21 21:56 Dose: 1 ea Documented by: Hydralazine HCl (Hydralazine Hcl 20 Mg/Ml Vial) 10 mg IV Q6HP PRN PRN Reason: Titrate to SBP (MUST DEFINE) Hydroxyzine HCl (Hydroxyzine Hcl 25 Mg Tab) 50 mg PO TIDP PRN PRN Reason: ANXIETY Last Admin: 06/17/21 08:03 Dose: 50 mg Documented by: Sodium Chloride (Sodium Chloride) 250 mls @ 999 mls/hr IV Q15M PRN PRN Reason: HYPOTENSION Last Admin: 06/03/21 09:33 Dose: 250 mls Documented by: Insulin Human NPH (Nph (Human) 100 Units/Ml Insulin) 20 units SQ BID [facility] Last Admin: 06/20/21 08:52 Dose: 20 units Documented by: Insulin Human Regular (Insulin -Regular Human 50 Unit/0.5 Ml Ml) 0 unit SQ ACHS [facility]; Protocol Last Admin: 06/20/21 07:30 Dose: Not Given Documented by: Midodrine (Midodrine Hcl 5 Mg Tablet) 5 mg PO TID [facility] Last Admin: 06/20/21 08:59 Dose: 5 mg Documented by: Ondansetron HCl (Ondansetron 4 Mg/2 Ml Vial) 4 mg IV Q6HP PRN PRN Reason: NAUSEA / VOMITING Last Admin: 06/17/21 08:13 Dose: 4 mg Documented by: Sodium Chloride (Flush Normal Saline 10 Ml) 10 ml IV BID [facility] Last Admin: 06/20/21 08:52 Dose: 10 ml Documented by: Thiamine HCl (Thiamine Hcl 100 Mg Tablet) 100 mg PO DAILY [facility] Last Admin: 06/20/21 08:50 Dose: 100 mg Documented by: Zinc Oxide (Zinc Oxide 20% Ointment 60gm) 1 appl TOP BID [facility] Last Admin: 06/20/21 08:52 Dose: 1 appl Documented by: Zinc Sulfate (Zinc Sulfate 220 Mg Cap) 220 mg PO DAILY [facility] Last Admin: 06/20/21 08:50 Dose: 220 mg Documented by: Microbiology Results 05/24/21 17:30 Blood - Blood Aerobic Blood Culture - Final No growth in 5 days. 05/24/21 17:30 Blood - Blood Anaerobic Blood Culture - Final No growth in 5 days. 05/24/21 17:40 Blood - Blood Aerobic Blood Culture - Final No growth in 5 days. 05/24/21 17:40 Blood - Blood Anaerobic Blood Culture - Final No growth in 5 days. 05/24/21 19:00 Wound - Left Abdomen Gram Stain - Final 05/24/21 19:00 Wound - Left Abdomen Culture & Sensitivity - Final Providencia Stuartii Assessment/ Plan: Nephrology No dyspnea No chest pain +Appetite No acute events overnight Vitals, medications, blood work and imaging reviewed in the chart General: Cooperative, Obese HEENT: Atraumatic Neck: Supple Lung: Normal respiratory effort Cardiovascular: Regular rate/rhythm, Edema Gastrointestinal: Soft and benign, Non-distended Musculoskeletal: No clubbing, No contractures Integumentary: No rashes, No cyanosis, Erythema Neurological: Normal speech Villegas Dark Blood work reviewed in the chart. Imagings Data: EXAM DESCRIPTION: RAD - Chest Single View - 05/24/2021 5:52 pm CLINICAL HISTORY: AMS COMPARISON: Chest Single View dated 05/16/2021; Chest Single View dated 05/15/2021; Chest Single View dated 05/12/2021; Chest Pa And Lat (2 Views) dated 08/26/2017 FINDINGS: Lines: None. Lungs: No evidence of edema or pneumonia. Pleural: No significant pleural effusions or pneumothorax. Cardiac: Cardiomegaly. Bones: No acute fractures. Other: IMPRESSION: No acute cardiopulmonary disease. EXAM DESCRIPTION: CT - Head Brain Wo Cont - 05/24/2021 6:07 pm CLINICAL HISTORY: MENTAL STATUS CHANGE COMPARISON: No comparisons TECHNIQUE: All CT scans are performed using dose optimization technique as appropriate and may include automated exposure control or mA/KV adjustment according to patient size. FINDINGS: No intracranial hemorrhage, hydrocephalus or extra-axial fluid co llection.No areas of brain edema or evidence of midline shift. The paranasal sinuses and mastoids are clear. The calvarium is intact. IMPRESSION: No acute intracranial abnormality. Conclusions/Impression: [place] in the setting of hypotension -No NSAIDs Hyponatremia -Encourage nutrition HTN -Hold Lisinopril -Continue Midodrine LE Edema -Low sodium diet DM II with hyperglycemia -RISS Moderate malnutrition -Continue Glucerna BID Polycythemia Microcytosis Iron saturation 26% -Monitor H&H
[2021-06-20 10:51] VITALS: O2SAT 94
[2021-06-20 17:34] VITALS: BP 144/72; TEMP 97.8
== END 2021-06-20 18:50 | DRG 602 ==
LOC: ER 15:17 → ERHOLD 05-25 00:30 → 4TH 05-25 10:36
PROVIDERS: ADMIT Hospitalist; ATTEND Hospitalist
DX: L03.314 Cellulitis of groin (principal); U07.1 COVID-19; G92.9 Unspecified toxic encephalopathy; J12.82 Pneumonia due to coronavirus disease 2019; J96.20 Acute and chronic respiratory failure, unspecified whether with hypoxia or hypercapnia; Z68.42 Body mass index [BMI] 45.0-49.9, adult; N17.9 Acute kidney failure, unspecified; E87.1 Hypo-osmolality and hyponatremia; E44.0 Moderate protein-calorie malnutrition; R44.3 Hallucinations, unspecified; I13.0 Hypertensive heart and chronic kidney disease with heart failure and stage 1 through stage 4 chronic kidney disease, or unspecified chronic kidney disease; I50.9 Heart failure, unspecified; N18.30 Chronic kidney disease, stage 3 unspecified; E11.22 Type 2 diabetes mellitus with diabetic chronic kidney disease; E11.65 Type 2 diabetes mellitus with hyperglycemia; L89.312 Pressure ulcer of right buttock, stage 2; E66.9 Obesity, unspecified; I95.9 Hypotension, unspecified; F31.9 Bipolar disorder, unspecified; D75.1 Secondary polycythemia; N28.9 Disorder of kidney and ureter, unspecified; E78.5 Hyperlipidemia, unspecified; J42 Unspecified chronic bronchitis; B96.89 Other specified bacterial agents as the cause of diseases classified elsewhere; R60.0 Localized edema; Z88.5 Allergy status to narcotic agent; Z79.899 Other long term (current) drug therapy; Z79.84 Long term (current) use of oral hypoglycemic drugs; Z79.4 Long term (current) use of insulin; Z79.82 Long term (current) use of aspirin
CPT/HCPCS: 36415; 70450; 71045; 74176; 80048; 80053; 80061; 80076; 80307; 81003; 81015; 82533; 82607; 82728; 82746; 82947; 83540; 83605; 83735; 83880; 83930; 83935; 84100; 84132; 84145; 84300; 84439; 84443; 84466; 84484; 84550; 85025; 85610; 86140; 87040; 87045; 87046; 87070; 87077; 87086; 87088; 87177; 87186; 87205; 87209; 89055; 93005; 94760; 94762; 96374; 97110; 97112; 97116; 97161; 97530; 99251; 99285; J0360; J1644; J1815; J1940; J2405; J3370; J3475; J7030; J7040; J7050; P9047; U0003